=== PATIENT | male | born 1950 | race Caucasian/White ===

== ENCOUNTER → 2017-03-20 | Outpatient (CLI) | payer SELFPAY ==
[~2017-03-20] MED LIST: ALBIPROI INH; ALBU3IS INH; ALBU90OI INH; ALBU90OI61; AMOCLA500 PO; AMOCLA875 PO; ASPI325 PO; ASPI81CH PO; ATEN50 PO; Amoxicillin500 MG PO; Augmentin 875-1 EACH PO; BECL80OI INH; BUDE.5; BUDE6HFA; BUME2 PO; Brovana15 MCG/2 M; CALC.25 PO; CEPH500 PO; CPAP; Cephalexin500 MG PO; Coreg12.5 MG PO; DOCU100 PO; DOK100 MG PO; DULO30 PO; FAMO20 PO; FLUSAL2505 IH; FLUT.05NI; FURO100EL PO; FURO20; GAVILAX17 GM PO; HYDACE10B PO; HYDACE5 PO; HYDCHL12.5 PO; HYDCHL25 PO; IBUP200 PO; IPRAIS; LEVO750 PO; LISHYD2012 PO; LISI20 PO; MELA3 PO; METH10 PO; METO50ER PO; MINO100 PO; MORP30ER PO; MORP60ER PO; MUPI2TO TOP; NAPR500 PO; NYST100P TOP; NYST100TO TOP; Nitrostat0.4 MG SL; Norco 10-325 T1 EACH PO; Nyamyc15 GM TOP; OXAZEPAM 30 MG; OXYACE5T PO; OXYC5 PO; OXYGEN; Oxycontin20 MG PO; PANT40 PO; POTA10T PO; POTA8 PO; POTCHL10ER PO; POTCHL20ER PO; PRED5 PO; PREG75 PO; SALS750 PO; SERT50 PO; SULTRIDS PO; SULTRISS PO; THERAPEUTIC-M1 EAC1 PO; TIOT18; TIOT18 INH; TRAZ50 PO; TUDORZA PRESS400 MCG; UNKNOWN BP MED PO; WARF3 PO; WARF4 PO; WARF5 PO; XARELTO20 MG PO; Zofran8 MG PO; [UNRECOGNIZED DRUG - OTHER] PO; [UNRECOGNIZED DRUG - OTHER] TOP
== END | disposition home or self-care (01) ==
LOC: LAB 14:45
DX: L08.9 Local infection of the skin and subcutaneous tissue, unspecified (principal)
CPT/HCPCS: 87070; 87077; 87186; 87205

== ENCOUNTER 2017-11-03 09:08 | Emergency (ER) | payer MEDICARE, OTHER ==
[~2017-11-03] VITALS: Ht 170.2 cm; Wt 181.4 kg
[~2017-11-03 09:08] MED LIST changes: -Augmentin 875-1 EACH PO; -CALC.25 PO; -MELA3 PO; -Nyamyc15 GM TOP; -THERAPEUTIC-M1 EAC1 PO
[2017-11-03] MEDS ORDERED: Augmentin 875-1 EACH PO (09:22)
[2017-11-03] MEDS ORDERED: CALC.25 PO (09:23)
[2017-11-03] MEDS ORDERED: BUME2 PO (09:23)
[2017-11-03] MEDS ORDERED: Norco 10-325 T1 EACH PO (09:25)
[2017-11-03] MEDS ORDERED: MELA3 PO (09:26)
[2017-11-03] MEDS ORDERED: THERAPEUTIC-M1 EAC1 PO (09:27)
[2017-11-03 09:55] LABS: BASOPHILS ABSOLUTE AUTO 0.03 K/mm3 (0.00-0.23); BASOPHILS PERCENT AUTO 0 % (0-2); EOSINOPHILS ABSOLUTE AUTO 0.33 K/mm3 (0.00-0.68); EOSINOPHILS PERCENT AUTO 3 % (0-6); Hematocrit 32.1 % (37.0-53.0); IMMATURE GRAN ABSOLUTE AUTO 0.04 K/mm3 (0.00-0.10); IMMATURE GRAN PERCENT AUTO 0 % (0-1); LYMPHOCYTES PERCENT AUTO 8 % (21-46); MONOCYTES ABSOLUTE AUTO 1.07 K/mm3 (0.16-1.47); MONOCYTES PERCENT AUTO 9 % (4-13); Mean Corpuscular HGB 28.9 pg (26.0-34.0); Mean Corpuscular HGB Conc 31.2 g/dL (31.5-36.5); Mean Corpuscular Volume 93 fL (80-100); Mean Platelet Volume 9.1 fL (9.1-12.4); NEUTROPHILS ABSOLUTE AUTO 9.55 K/mm3 (1.96-9.15); NEUTROPHILS PERCENT AUTO 80 % (41-73); Platelet Count 220 K/mm3 (150-400); RDW Coefficient Variation 14.1 % (11.7-14.2); RDW Standard Deviation 48.2 fL (35.1-46.3); Red Blood Cell Count 3.46 M/mm3 (4.30-5.90); White Blood Cell Count 11.92 K/mm3 (4.00-11.30)
[2017-11-03 10:12] LABS: Alanine Aminotransfer (ALT/SGP 14 U/L (12-78); Albumin, Blood 2.5 g/dL (3.4-5.0); Albumin/Globulin Ratio 0.5 (0.8-1.8); Alk Phos 85 U/L (50-136); Anion Gap 2 mmol/L (6-16); Aspartate Aminotrans (AST/SGOT 18 U/L (12-37); Bilirubin, Total 0.5 mg/dL (0.1-1.0); Blood Urea Nitrogen 19 mg/dL (8-24); Bun/Creatinine Ratio 31.2 (12.0-20.0); CO2, Blood 39 mmol/L (21-32); Calcium, Blood 8.1 mg/dL (8.5-10.1); Chloride, Blood 95 mmol/L (98-108); Creatinine, Blood 0.61 mg/dL (0.60-1.20); Globulin, Blood 4.6 g/dL (2.2-4.0); Glomerular Filtration Rate >60 (60-); Glucose, Blood 128 mg/dL (70-99); Potassium, Blood 4.2 mmol/L (3.5-5.5); Sodium, Blood 136 mmol/L (136-145); Total Protein, Blood 7.1 g/dL (6.4-8.2); Troponin I <0.015 ng/mL (0.000-0.040)
[2017-11-03 10:35] LABS: Base Excess Venous 17.3 mmol/L; Bicarbonate Venous 38.8 mmol/L (24.0-30.0); PCO2 Venous 67.3 mmHg (38-42); PO2 Venous 173 mmHg (38-42)
== END 2017-11-03 13:30 | disposition home or self-care (01) ==
LOC: ER 09:08
PROVIDERS: Emergency Medicine; Internal Medicine
DX: I11.0 Hypertensive heart disease with heart failure (principal); I50.32 Chronic diastolic (congestive) heart failure; J44.9 Chronic obstructive pulmonary disease, unspecified; G93.40 Encephalopathy, unspecified; K21.9 Gastro-esophageal reflux disease without esophagitis; Z87.891 Personal history of nicotine dependence; Z79.899 Other long term (current) drug therapy
CPT/HCPCS: 36415; 70450; 71046; 80053; 82803; 83880; 84484; 85025; 93005; 93010; 94644; 99285-25

== ENCOUNTER 2017-11-07 18:52 | Emergency (ER) | payer MEDICARE, OTHER ==
[~2017-11-07] VITALS: Ht 170.2 cm; Wt 204.1 kg
[~2017-11-07 18:52] MED LIST changes: +Augmentin 875-1 EACH PO; +CALC.25 PO; +MELA3 PO; +THERAPEUTIC-M1 EAC1 PO
[2017-11-07] MEDS ORDERED: Nyamyc15 GM TOP (19:21)
== END 2017-11-07 20:35 | disposition home or self-care (01) ==
LOC: ER 18:52
DX: R41.82 Altered mental status, unspecified (principal); L97.529 Non-pressure chronic ulcer of other part of left foot with unspecified severity; I11.0 Hypertensive heart disease with heart failure; I50.32 Chronic diastolic (congestive) heart failure; J44.9 Chronic obstructive pulmonary disease, unspecified; K21.9 Gastro-esophageal reflux disease without esophagitis; Z79.899 Other long term (current) drug therapy; Z87.891 Personal history of nicotine dependence
CPT/HCPCS: 82947; 93005; 93010; 99285-25

== ENCOUNTER 2018-03-05 11:18 | Observation (INO) | payer MEDICARE, OTHER ==
[~2018-03-05] VITALS: Ht 170.2 cm; Wt 200.5 kg
[~2018-03-05 11:18] MED LIST changes: +Nyamyc15 GM TOP
[2018-03-05 13:08] LABS: Influenza A Negative (NEGATIVE); Influenza B Negative (NEGATIVE)
[2018-03-05 13:10] LABS: BASOPHILS ABSOLUTE AUTO 0.04 K/mm3 (0.00-0.23); BASOPHILS PERCENT AUTO 0 % (0-2); EOSINOPHILS ABSOLUTE AUTO 0.46 K/mm3 (0.00-0.68); EOSINOPHILS PERCENT AUTO 5 % (0-6); Hematocrit 36.2 % (37.0-53.0); Hemoglobin 10.7 g/dL (13.5-17.5); IMMATURE GRAN ABSOLUTE AUTO 0.04 K/mm3 (0.00-0.10); IMMATURE GRAN PERCENT AUTO 0 % (0-1); LYMPHOCYTES ABSOLUTE AUTO 0.99 K/mm3 (0.84-5.20); LYMPHOCYTES PERCENT AUTO 11 % (21-46); MONOCYTES ABSOLUTE AUTO 0.79 K/mm3 (0.16-1.47); MONOCYTES PERCENT AUTO 9 % (4-13); Mean Corpuscular HGB 28.5 pg (26.0-34.0); Mean Corpuscular HGB Conc 29.6 g/dL (31.5-36.5); Mean Corpuscular Volume 96 fL (80-100); Mean Platelet Volume 9.1 fL (9.1-12.4); NEUTROPHILS ABSOLUTE AUTO 6.89 K/mm3 (1.96-9.15); NEUTROPHILS PERCENT AUTO 75 % (41-73); Platelet Count 238 K/mm3 (150-400); RDW Standard Deviation 53.2 fL (35.1-46.3); Red Blood Cell Count 3.76 M/mm3 (4.30-5.90); White Blood Cell Count 9.21 K/mm3 (4.00-11.30)
[2018-03-05 13:20] LABS: Alanine Aminotransfer (ALT/SGP 15 U/L (12-78); Albumin, Blood 2.8 g/dL (3.4-5.0); Albumin/Globulin Ratio 0.6 (0.8-1.8); Alk Phos 79 U/L (50-136); Anion Gap 3 mmol/L (6-16); Aspartate Aminotrans (AST/SGOT 14 U/L (12-37); Bilirubin, Total 0.1 mg/dL (0.1-1.0); Blood Urea Nitrogen 15 mg/dL (8-24); Bun/Creatinine Ratio 23.3 (12.0-20.0); CO2, Blood 36 mmol/L (21-32); Calcium, Blood 8.6 mg/dL (8.5-10.1); Chloride, Blood 104 mmol/L (98-108); Creatinine, Blood 0.64 mg/dL (0.60-1.20); Globulin, Blood 4.5 g/dL (2.2-4.0); Glomerular Filtration Rate >60 (60-); Glucose, Blood 92 mg/dL (70-99); Potassium, Blood 4.6 mmol/L (3.5-5.5); Sodium, Blood 143 mmol/L (136-145); Total Protein, Blood 7.3 g/dL (6.4-8.2)
[2018-03-05 15:30] LABS: Source, Urine Clean Catch
[2018-03-05 15:34] LABS: Bilirubin, Urine Neg (Neg); Blood, Urine 5+ (Neg); Glucose Qualitative, Urine Neg (Neg); Ketones, Urine Neg (Neg); Leukocyte Esterase, Urine 1+ (Neg); Nitrite, Urine Neg (Neg); Protein, Urine 2+ (Neg); Urobilinogen, Urine NORM (Normal)
[2018-03-05 15:41] LABS: Appearance, Urine Clear (Clear); Color, Urine Yellow (P-Yellow)
[2018-03-05 15:43] LABS: Red Blood Cells, Urine 25-50 /hpf (0-2); Uric Acid Crystals Many /hpf
[2018-03-05 15:45] LABS: Calcium Oxalate Crystals Mod /hpf
[2018-03-05 15:46] LABS: Squamous Epithelial Cells Few /hpf (Few)
[2018-03-05 15:47] LABS: Bacteria Few /hpf
--- NOTE | 2018-03-05 16:45 | NUR ---
PT ARRIVED TO ROOM 364 FROM ED. TRANSFERRED TO BED FROM [facility] VIA ROOM LIFT. SOB WITH ANY REPOSITIONING OR EXERTION. PHOTOS TAKEN OF LEGS AND GLUTEAL FOLDS. SETTLED IN TO BED THEN AND PILLOW CASES PLACED IN FOLDS.
--- NOTE | 2018-03-05 19:55 | NUR ---
SHIFT SUMMARY PT CALLING FOR ASSIST SEVERAL TIMES SINCE ARRIVAL. CONDOM CATH ATTEMPTED BUT FELL OFF. SITTING UP IN BED WATCHING TV.
--- NOTE | 2018-03-06 05:02 | NUR ---
VSS, AFEBRILE, A/O, MORBIDLY OBESE, USE LIFT TO TURN *IF* HE WILL PERMIT YOU TO DO IT, PT REFUSES CARE FREQUENTLY, PMHX: MRSA, ESBL IN URINE, CHRONIC LYMPHEDEMA BILAT LE, COPD, RASH IN GROIN, CHRONIC PAIN. PT USES TWO CANES TO MOBILIZE OUT OF BED, NO IV ACCESS - OK, C/O SOB WHEN HOB IS LOWERED, REFUSING CARE, REFUSING TO TURN UNLESS HE WANTS TO BE SCRACHED ON THE BACK, REFUSING MEDS AT TIMES. OPEN AREAS ON BOTH LEGS, COCCYX AND SMALL OF BACK, PHOTOS TAKEN. INCONT, CONDOM CATH IS NOT A VIABLE SOLUTION BECAUSE PT MANIPULATES HIS GENITALS AT TIMES, WOUNDS ON LEGS ARE WEEPING, 3L NC, CAN MAKE INAPPROPRIATE COMMENTS TO STAFF AT TIMES, LIVES ALONE, NEEDS HANDY WORKER
--- NOTE | 2018-03-06 19:00 | NUR ---
SHIFT SUMMARY PT UP WITH P.T. THIS MORNING, STOOD AND SAT IN CHAIR WHILE I WAS IN ROOM. GRUNTS AND "CHANTS" FREQUENTLY. REPORTS CHANTING HELPS HIM GET HIS MIND OFF OF SITUATION AT THE TIME. USING URINAL WITH ASSIST TO VOID. LEGS WEEPS CONTINUOUSLY. REPORTS SOB WITH AND WITHOUT EXERTION.
--- NOTE | 2018-03-07 04:58 | NUR ---
VSS, AFEBRILE, A/O, STEADY AMBULATION WITH BOTH CANES, INCONT BUT ASKS FOR THE URINAL, PMHX: CHRONIC LYMPHEDEMA BILAT LE, CHRONIC PAIN, RASH IN GROIN FOLDS, COPD. NO IV - MD OK, REFUSES MEDS AT TIMES, OFTEN MAKES INAPPROPRIATE REMARKS TO STAFF OR TO PEOPLE PASSING HIS ROOM, BILAT LE WEEPING, WOUNDS ON LEGS, COCCYX, AND LOWER BACK, PHOTOS IN CHART, 3L NC, C/O JONAS WHEN ASKED TO SIT UP ON THE EDGE OF THE BED OR TO TURN OVER IN BED. USE LIFT, LIVES ALONE, HE WANTS PLACEMENT IN A SENIOR CARE TO CARE FOR HIM.
--- NOTE | 2018-03-07 18:35 | NUR ---
PATIENT HAS HAD NO CHANGES TODAY. HE WORKED WITH AND WAS CLEARED BY PT . HE IS ABLE TO AMBULATE WITH HIS TWO CANES BUT SPENT MOST OF THE DAY IN BED OR IN HIS CHAIR. HE HAD ISSUES AT THE START OF THE SHIFT WITH BEING INAPPROPRIATE WITH THE STAFF BUT THE NURSE WAS ABLE TO TALK TO HIM AND LET HIM KNOW WHAT WOULD BE TOLERATED AND EXPECTED OF HIM BEHAVIORAL CONTI. HE SLEPT MOST OF THE AFTERNOON IN CHAIR WITH LEGS UP AND HAD TO BE AWAKEN TO BE GIVEN HIS EVENING MEDS. PATIENT WOKE UP CONFUSED BUT DID KNOW WHERE HE WAS/
--- NOTE | 2018-03-08 05:06 | NUR ---
VSS, AFEBRILE, A/O, OOB W/2 CANES, SLEEPS IN CHAIR, USES URINAL W/ASSISTANCE, NO IV - MD OK, BEHAVIOR IS IMPROVING, MORE RESPECTFUL OF STAFF, FEWER INAPPROPRIATE REMARKS OVER NOC. BILAT LE LYMPHEDEMA, SEVERAL OPEN AREAS ON LEGS, COCCYX AND LOWER BACK, PHOTOS IN CHART, PT STATES THAT HE IS VERY STEADY ON HIS FEET WITH HIS CANES AND CAN/SHOULD AMBULATE TO REGAIN HIS STRENGTH. PT LIVES ALONE AND WANTS PLACEMENT IN A SENIOR CARE SO THAT OTHERS WILL TAKE CARE OF HIM. NEEDS BUSINESS ANALYSIS PROFESSIONAL.
--- NOTE | 2018-03-08 18:19 | NUR ---
PATIENT HAS HAD NO CHANGES TO HIS CONDITION OR MUCH TO HIS BEHAVIOR. HE WAS FOUND ON THE FLOOR DURING THE LUNCH HOUR AND STATED HE HAD SLID OUT OF BED HE WAS TRYING TO GET INTO CHAIR OR TO GET HIS TRAY WHICH WAS RIGHT IN FRONT OF HIM. THIS NURSE IS NOT QUITE SURE WHICH ONE THE PATIENT KEPT CHANGING HIS STORY AND HIS MIND TO WHAT HAPPENED. NO INJURIES NOTED OR REPORTE. WITH MUCH EFFORT HE WAS LIFTED BACK INTO BED BY THE HOVER FLORA. HE WAS CLEANED UP AND HAD HIS BED CHANGED . PREVIOUSLY THIS MORNING PATIENT HAD USED HIS CANES TO ASSIST HIMSELF FROM THE CHAIR TO THE SIDE OF THE BED SO IT IS UNKNOWN WHY EXACTLY HE WAS UNABLE TO GET FROM THE BED TO THE CHAIR OR WHY HE WAS REACHING FOR A TABLE WHICH HAD BEEN INFRONT OF HIM AND HOW EXACTY HE ENDED UP ON THE FLOOR BY HIS BED. PATIENT WAS NOT THE BEST HISTORIAN. HE HAS SLEPT MOST OF THE AFTERNOON WITH NO COMPLAINTS. CALL LIGHT WITHIN REACH.
--- NOTE | 2018-03-09 06:16 | NUR ---
SHIFT SUMMARY NO C/O PAIN EXCEPT WHEN TURNING HIM. INCONT OF URINE. CALLS OUT SAME WORDS REPEATEDLY "I WANNA GO" "OH BABY". 6L O2 NC. NONAMBULATORY LIFT PT. BED ALARM IN USE. EXCORIATIONS ON SIDE OF CALVES WEEPING AND CHANGED CHUX UNDERNEATH PRN. HE WAS ABLE TO SLEEP T/O NIGHT ON AND OFF. CALL LIGHT IN REACH
--- NOTE | 2018-03-09 08:15 | NUR ---
PT SLEEPING SOUNDLY WHEN RT IN ROOM. WHEN ASKED QUESTIONS BY THIS RN PT WOULD RESPOND I DONT KNOW OR WOULD ANSWER THE PREVIOUS QUESTION AGAIN. GRUNTING AND MOANING IN ROOM SINCE AWAKENED. APPEARS MENTALLY ALTERED SINCE LAST CARING FOR PT. HAND JERKING ABOUT. O2 DECREASED TO 4L/M BY RT. VSS. CALL OUT TO DR. GHOTRA.
--- NOTE | 2018-03-09 10:33 | NUR ---
PT MUCH IMPROVED FROM EARLIER. MD IN TO SEE PT AFTER SPEAKING WITH HIM ON PHONE. AWAKE AND ALERT. ABLE TO CARRY ON A CONVERSATION. ARM JERKING IMPROVING FROM EARLIER. ABLE TO FEED SELF. P.T. IN TO SEE PT AND NOW IN CHAIR.
--- NOTE | 2018-03-09 18:30 | NUR ---
PT HAS BEEN AWAKE MOST OF DAY WITH SHORT NAP THIS AFTERNOON PRIOR TO GETTING IN CHAIR FOR SUPPER. HAD SIMILAR SYMPTOMS THIS MORNING BUT TO A LESSER DEGREE. ABLE TO TRANSFER TO RECLINER WITH 1 PERSON ASSIST USING CANES. MOANING AND GRUNTING FREQUENTLY WHEN MOVING AROUND OR SITTING IN CHAIR. SOB WITH EXERTION. LE'S WEEPING CONSTANTLY WHICH IS BASELINE FOR PT. SPOKE WITH MD THIS MORNING ABOUT MOST RECENT UA SHOWING ESBL. NO NEW ORDERS AT THIS TIME.
--- NOTE | 2018-03-10 05:14 | NUR ---
VSS, AFEBRILE, A/O, OOB TO THE CHAIR WITH 1 PA AND 2 CANES, MORBIDLY OBESE, REFUSING CPAP AT NOC, GRUNTING LOUDLY - EVEN MORE LOUDLY IF HIS DOOR IS CLOSED. IT IS UNCLEAR WHY HE MAKES THOSE NOISES THEY APPEAR TO NOT BE SYMPTAMTIC OF ANYTHING. PT IS REPORTED TO BE S/P FALL ON XMAS DAY. PT IS VOCALLY PROTESTING WHAT HE BELIEVES TO BE HIS PENDING DISCHARGE TO A REHAB FACILITY. PT AWAKE ALMOST ALL NOC THIS SHIFT AND HIS LOUD NOISES ARE DISRUPTIVE TO OTHER PATIENTS. NO IV - MD OK. PMHX: OBESITY, BILAT LE LYMPHEDEMA, CHRONIC BACK PAIN
--- NOTE | 2018-03-10 07:45 | NUR ---
A.M. NOTE PT IN ROOM SITTING ON SIDE OF BED. WHEN ASKED HOW HE GOT THERE HE REPORTED HE GOT HIMSELF FROM CHAIR TO BED. CANES HAD BEEN OUT OF REACH WHEN HE TRANSFERED. APPEARS TO REQUIRE 2-3 STEPS TO GET TO BED FROM CHAIR. MAKING FREQUENT NOISES IN ROOM WHEN ALONE. WHEN ASKED IF HE NEEDS ANYTHING HE SAYS I DON'T KNOW OR LET ME THINK A MINUTE.
--- NOTE | 2018-03-10 14:10 | NUR ---
PT HAS BEEN IN CHAIR FOR LUNCH. WHEN ASKED ORIENTATION QUESTIONS PT RESPONDS APPROPRIATELY. HAS BEEN TO BATHROOM AND BACK TWICE BEFORE LUNCHTIME USING CANES AND SBA. FOUND AFTER FIRST TIME GOING IN TO BATHROOM BACK IN CHAIR PRIOR TO RETURNING TO ROOM. NOW HAS CHAIR ALARM IN PLACE. HAS ATTEMPTED TO GET OUT OF CHAIR "JUST TO STAND" A FEW TIMES WITH ALARM SOUNDING AND PT SWEARING AT THE NOISE. ASSISTED BACK TO BED. ABLE TO DO MOST OF TRANSFER ON HIS OWN WITH CUING TO STRAIGHTEN SHOULDERS AND ASSIST WITH 1 FOOT. HE IS ABLE TO PULL SELF UP WITH BED IN TRENDELENBERG POSTION. WHEN TOLD TO STOP YELLING OUT SO FREQUENTLY ESPECIALLY WHEN HE HAS NOTHING HE NEEDS AT THE TIME HE QUIETS DOWN BUT DOES SLOWLY INCREASE IN VOLUME AGAIN.
[2018-03-10 17:36] LABS: BASOPHILS ABSOLUTE AUTO 0.04 K/mm3 (0.00-0.23); BASOPHILS PERCENT AUTO 0 % (0-2); EOSINOPHILS ABSOLUTE AUTO 0.25 K/mm3 (0.00-0.68); EOSINOPHILS PERCENT AUTO 2 % (0-6); Hematocrit 35.5 % (37.0-53.0); Hemoglobin 10.9 g/dL (13.5-17.5); IMMATURE GRAN ABSOLUTE AUTO 0.05 K/mm3 (0.00-0.10); IMMATURE GRAN PERCENT AUTO 1 % (0-1); LYMPHOCYTES ABSOLUTE AUTO 1.21 K/mm3 (0.84-5.20); LYMPHOCYTES PERCENT AUTO 11 % (21-46); MONOCYTES ABSOLUTE AUTO 1.18 K/mm3 (0.16-1.47); MONOCYTES PERCENT AUTO 11 % (4-13); Mean Corpuscular HGB 28.9 pg (26.0-34.0); Mean Corpuscular HGB Conc 30.7 g/dL (31.5-36.5); Mean Corpuscular Volume 94 fL (80-100); Mean Platelet Volume 9.5 fL (9.1-12.4); NEUTROPHILS ABSOLUTE AUTO 8.17 K/mm3 (1.96-9.15); NEUTROPHILS PERCENT AUTO 75 % (41-73); Platelet Count 257 K/mm3 (150-400); RDW Coefficient Variation 14.6 % (11.7-14.2); RDW Standard Deviation 50.5 fL (35.1-46.3); Red Blood Cell Count 3.77 M/mm3 (4.30-5.90)
[2018-03-10 18:08] LABS: Alanine Aminotransfer (ALT/SGP 17 U/L (12-78); Albumin, Blood 2.8 g/dL (3.4-5.0); Albumin/Globulin Ratio 0.6 (0.8-1.8); Alk Phos 72 U/L (50-136); Anion Gap 5 mmol/L (6-16); Aspartate Aminotrans (AST/SGOT 23 U/L (12-37); Bilirubin, Total 0.3 mg/dL (0.1-1.0); Blood Urea Nitrogen 18 mg/dL (8-24); Bun/Creatinine Ratio 22.3 (12.0-20.0); CO2, Blood 35 mmol/L (21-32); Calcium, Blood 8.6 mg/dL (8.5-10.1); Chloride, Blood 99 mmol/L (98-108); Creatinine, Blood 0.81 mg/dL (0.60-1.20); Globulin, Blood 4.6 g/dL (2.2-4.0); Glomerular Filtration Rate >60 (60-); Glucose, Blood 86 mg/dL (70-99); Sodium, Blood 139 mmol/L (136-145); Total Protein, Blood 7.4 g/dL (6.4-8.2)
--- NOTE | 2018-03-10 18:37 | NUR ---
SHIFT SUMMARY PT HAS REMAINED ON BED ALARM SINCE BEING PUT BACK IN BED. HAS MADE NO ATTEMPT TO CLIMB OUT OF BED. AFTER BEING INSTRUCTED NOT TO BE LOUD WITH HIS NOISES BECAUSE THEY WERE DISTURBING OTHER PTS AND FAMILY MEMBERS AND HE HAS BEEN MORE QUIET SINCE. MD IN TO SEE PT AND ORDERED STAT TESTS. NEEDED CONVINCING TO DO CT AND REFUSED ABG. STATED HES HAD ONE IN THE PAST AND HE WILL NEVER HAVE ONE AGAIN. SAYS HE DOESN'T WANT ANYTHING FOUND THAT WOULD KEEP HIM HERE ANY LONGER AND THAT HE WAS GOING HOME TONIGHT. EXPLAINED THAT [facility]OCK CRUSHER DISCUSSED WITH HIM GOING BACK HOME WITH [employer] TOMORROW. REPLIED THIS PLACE SUCKS AND I WANT TO GO HOME. WAS CALM FOR A LONG PERIOD OF TIME AND THEN WANTED TO KNOW IF HE WAS GOING HOME TODAY AGAIN AND NEEDED REMINDING NO TONIGHT. ABLE TO ANSWER QUESTIONS APPROPRIATELY BUT THEN IS FORGETING WHAT IS BEING SAID TO HIM. SUCKS
--- NOTE | 2018-03-11 02:58 | NUR ---
FOUR RECTANGULAR WHITE PILLS FOUND ON PT BEDSIDE TABLE IN A ZIPLOCK BAG THIS AM. UNSURE OF WHAT THEY WERE. NOTIFIED CLINICAL COODINATOR SIMONE PEÑA RN, AND PINKING SEWING MACHINE OPERATOR AMAN MINA RN. INSTRUCTED TO TAKE TO PHARMACY. BAG TAKEN TO PHARMACY AND GIVEN TO BING CONROY. HE STATES THAT THEY APPEAR TO BE [facility]. BING CONROY LOOKED THEM UP AND IDENTIFIED THEM [facility]. TO BE CALLED AND NOTIFIED.
--- NOTE | 2018-03-11 03:18 | NUR ---
DR. NGUYEN NOTIFIED THAT MEDICATION WAS FOUND ON PT TABLE AND IT WAS IDENTIFIED [facility] BY PHARMACY. NOTIFIED OF THE AMOUNT FOUND ON THE TABLE. AND OF PT INCREASED CONFUSION OVER THE PAST FEW DAYS. NO NEW ORDERS. HE STATES TO NOTIFY DAYSHIFT RN FOR FOLLOW UP WITH ATTNENDING PHYSICAN. WILL NOTIFY.
--- NOTE | 2018-03-11 05:05 | NUR ---
SHIFT SUMMARY PT CONTINUES TO YELL AND MOAN OUT ON AND OFF T/O THE NIGHT. "COME ON BABY', "I WANNA GO". PT VERY FORGETFUL. AT THE BEGINNING OF THE SHIFT PT ANSWERS MY QUESTONS ABOUT THE MONTH, AND YEAR. BUT UNABLE TO TELL ME WHERE HE IS, AND ANSWERS NONSENSICALLY IF HE DOES NOT KNOW THE ANSWER TO MY QUESTION. PT HAD TWO LARGE INCONTINENT VOIDS IN THE BED THIS SHIFT WHICH REQUIRED TWO COMPLETE LINEN CHANGES. PT DOES NOT CALL WHEN HE NEEDS TO GO TO THE BATHROOM. THE ONLY THING THAT SIGNALS THAT HE HAS WET THE BED IS WHEN PT ATTEMPTS TO TRY AND GET OUT OF BED STATING "I WANNA GO". MEDICATIONS FOUND ON PT BEDSIDE TABLE IN A ZIPLOCK BAG THIS SHIFT. MEDICATION TAKEN TO PHARMACY, WHICH WAS LATER IDENTIFIED [facility]. PT NOT ORINETED ENOUGH TO PROVIDE DETAILS ON THE MEDCAITION FOUND. MEDICATIONS WERE TAKEN TO PHARMACY, AND NOTIFIED. THERE ARE NO ACUTE S/S OF DISTRESS IN PT. SEE EARLIER NURSES NOTES. NO OTHER CHANGES TO REPORT. VITALS ARE STABLE. PSYCH CONSULT IN PLACE WITH DR. KLINE FACE SHEET FAXED TO PHARMACY. WILL CONTINUE TO MONITOR AND REPORT TO ONCOMING RN.
--- NOTE | 2018-03-11 18:38 | NUR ---
PT UP TO CHAIR THIS MORNING USING LIFT. THERAPIES IN TO SEE PT WHILE HE WAS UP IN CHAIR. HE DID NOT PARTICIPATE WITH THERAPIES THIS AM. PT RETURNED TO BED BEFORE LUNCH USING LIFT PER HIS REQUEST. PT CALLING FOR ASSISTANCE FREQUENTLY, SOMETIMES USING THE CALL ROBERTS AND SOMETIMES JUST YELLING, ALSO TALKING TO HIMSELF MOST OF THE TIME. PT UP AND STANDING USING HIS TWO CANES AND INTO CHAIR. UP IN CHAIR THRU DINNER AND IS NOW RETURNING TO BED WITH CONSTRUCTION TRADES CONTRACTOR ASSISTANCE. WILL CONTINUE TO MONITOR AND REPORT TO AISHWARYA DENNY
--- NOTE | 2018-03-11 23:39 | NUR ---
PATIENT UPDATE PATIENT CURRENTLY SITTING AT EDGE OF BED. REFUSING OFFERS FROM OIL RECOVERY OPERATOR TO ASSIST HIM TO CHANGE POSITIONS. HAS POSITIONED HIMSELF ONTO EDGE OF BED WHERE BED ALARM CAN'T BE PLACED IT ALARMS SOON IT IS ENGAGED. REFUSING TO LAY BACK DOWN OR MOVE INTO CHAIR. OIL RECOVERY OPERATOR CURRENTLY WITH HIM IN ROOM TO ENSURE HE DOESN'T FALL. WILL CONTINUE TO MONITOR AND ATTEMPT TO HAVE PATIENT CHANGE POSITIONS TO BEING SAFER.
--- NOTE | 2018-03-12 00:09 | NUR ---
UPDATE PATIENT ABLE TO BE CONVINCED BY SERVICE STATION ATTENDANT TO SIT IN CHAIR INSTEAD OF EDGE OF BED. WILL CONTINUE TO MONITOR.
--- NOTE | 2018-03-12 05:34 | NUR ---
SHIFT SUMMARY PATIENT SLEPT SPORADICALLY THROUGH THE NIGHT. CONTINUOUSLY WOULD MOAN AND YELL OUT FOR ATTENTION INSTEAD OF USING CALL LIGHT REGARDLESS OF ORIENTATION TO IT. WOULD ALSO ASK FOR HIS "BABIES" TO COME HELP HIM. DAY SHIFT HAD INFORMED PATIENT THAT NO STAFF RESPONDS TO THAT BUT HE TRIES WITH EACH NEW SET OF STAFF. PATIENT RATES PAIN AT A CONTINUAL LEVEL OF 8 REGARDLESS OF MEDICATIONS GIVEN. WILL CONTINUE TO MONITOR AND ASSESS UNTIL SHIFT HANDOFF.
--- NOTE | 2018-03-12 18:14 | NUR ---
PT HAS BEEN AOX4 WITH SOME CONFUSION. PT HAS GOTTEN UP TO SIDE OF BED ON HIS OWN X2 TODAY AND WAS VERY HARD TO GET TO COOPERATE.PT AT END OF SHIFT HAD WET HIS BED PT WILL NOT LET HIS BED BE CHANGED AND HAS REFUSED. CHARGE NURSE NOTIFIED. PT COOPERATIVE WITH MEDICATIONS. PAIN TREATED PER EMAR.
--- NOTE | 2018-03-12 22:32 | NUR ---
STATUS UPDATE UPON SHIFT CHANGE WAS REPORTED THAT PATIENT REFUSED TO ALLOW DAY SHIFT TO CHANGE LINENS AND HAD SOILED THEM. STATED THAT WE WOULD HAVE TO FORCE HIM OUT OF BED TO CHANGE THEM. DISCUSSED WITH PATIENT AND GAVE HIM NO ULTIMATUMS OR BARGAINING REGARDING LINEN CHANGE AND MICAELA CARE. PATIENT RELUCTANT BUT DID AMBULATE TO BATHROOM WITH SUPPORT FROM HOME DEMONSTRATION AGENT AND RN. PATIENT LATER REFUSED TO LAY DOWN UNLESS RN WAS IN ROOM ASSISTING ALSO. PATIENT CONTINUES TO MOAN AND YELL OUT FREQUENTLY AND IT HAS NO BEARING RELATED TO HIS MEDICATIONS HE YELLS OUT BEFORE AND AFTER RECEIVING THEM AND IT IS CONSTANT. WILL CONTINUE TO MONITOR.
[2018-03-13 05:44] LABS: Anion Gap 3 mmol/L (6-16); Blood Urea Nitrogen 14 mg/dL (8-24); Bun/Creatinine Ratio 19.9 (12.0-20.0); CO2, Blood 38 mmol/L (21-32); Calcium, Blood 8.5 mg/dL (8.5-10.1); Chloride, Blood 99 mmol/L (98-108); Creatinine, Blood 0.71 mg/dL (0.60-1.20); Glomerular Filtration Rate >60 (60-); Glucose, Blood 92 mg/dL (70-99); Potassium, Blood 4.3 mmol/L (3.5-5.5); Sodium, Blood 140 mmol/L (136-145)
--- NOTE | 2018-03-13 06:42 | NUR ---
SHIFT SUMMARY PATIENT SLEPT THROUGH THE NIGHT. HAD MINIMAL GROANING AND MOANING TONIGHT OPPOSED TO YESTERDAY. GAVE PATIENT ALL PAIN MEDICATIONS AT THE SAME TIME AND HE TOLERATED WELL. WILL CONTINUE TO MONITOR UNTIL SHIFT HANDOFF.
--- NOTE | 2018-03-13 17:15 | NUR ---
PT AO SEEMS MORE COOPERATIVE TODAY. PT CONTINUES TO REFUSE HIS BUMEX. PT HAS BEEN CALLING APPROPRIATELY TODAY AND HIS CALLING OUT AND MOAN HAS NOT BEEN EXCESSIVE IT WAS YESTERDAY. WILL MONITOR CLOSELY.
--- NOTE | 2018-03-13 22:21 | NUR ---
PT IS STABLE, BUT C/O JONAS. PT WANTS TO BE PULLED UP IN BED BY STAFF. PT DOES NOT CURRENTLY HAVE THE LIFT SLING UNDER HIM, SO THE OVERHEAD LIFT CANNOT BE USED. PT REFUSES TO ROLL OVER TO PERMIT PLACEMENT OF THE LIFT SLING. PT REFUSES TO GET OOB WITH HIS CANES TO BETTER POSITION HIMSELF. PT IS ANGRY AND MAKING UNKIND REMARKS TO STAFF BECAUSE HE WANTS TO BE PULLED UP IN BED MANUALLY. RT WAS CONTACTED TO GIVE HIM A BREATHING TX. WILL CONTINUE TO MONIOR.
--- NOTE | 2018-03-13 23:28 | NUR ---
PT HAS FINALLY AGREED TO STAND UP TO BE REPOSITIONED. PT WAS PLACED IN THE CHAIR WHILE HIS BED LINEN WAS CHANGED. AN EGG CRATE MATTRESS HAS BEEN PLACED ON HIS BED, AND THE LIFT SLING HAS BEEN POSITIONED SO THAT IT CAN BE USED THE NEXT TIME THAT HE WANTS TO BE MOVED UP IN BED. THE PT'S BODY SMELLS BADLY, BUT HE IS REFUSING A BATH AT THIS TIME. HE WAS RETURNED TO THE BED AFTER HIS LINEN WAS CHANGED AND HE HAS THE URINAL BETWEEN HIS LEGS, PER HIS REQUEST. WILL CONTIUE TO MONITOR.
--- NOTE | 2018-03-14 01:39 | NUR ---
PT OOB TO STAND WHILE HIS BOTTOM WAS CLEANED. PT WAS OFFERED A SHOWER, BUT HE DECLINED AGAIN. PT BECOMES ANXIOUS WHEN OOB BUT IS QUITE STEADY ON HIS FEET W/2 CANES. PT RETURNED TO HIS BED W/OUT INCIDENT. THERE DOES NOT APPEAR TO BE ANY REASON THAT HE CANNOT GET OOB OFTEN IS REQUIRED FOR HIS CARE. WILL CONTINUE TO MONITOR.
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
[2018-03-14] MEDS ORDERED: AMLO5 PO ×2 (11:45)
[2018-03-14] MEDS ORDERED: ACET325 PO ×2 (11:48)
[2018-03-14] MEDS ORDERED: DEEP SEA44 ML ×2 (11:48)
[2018-03-14] MEDS ORDERED: THERA TABLET400 MCG PO ×2 (11:49)
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
--- NOTE | 2018-03-17 19:35 | NUR ---
LATE ENTRY CORRECTED PROVIDER NAME UNDER NO IV ACCESS NEEDED FROM TIFFANY GHOTRA TO MILDRED GHOTRA
== END 2018-03-14 15:32 | disposition home or self-care (01) ==
LOC: ER 11:18 → MEDS 11:19
PROVIDERS: Emergency Medicine; Internal Medicine; ADMIT Internal Medicine
DX: G93.40 Encephalopathy, unspecified (principal); E66.01 Morbid (severe) obesity due to excess calories; I89.0 Lymphedema, not elsewhere classified; J44.9 Chronic obstructive pulmonary disease, unspecified; G47.33 Obstructive sleep apnea (adult) (pediatric); I11.0 Hypertensive heart disease with heart failure; I50.30 Unspecified diastolic (congestive) heart failure; I87.8 Other specified disorders of veins; K21.9 Gastro-esophageal reflux disease without esophagitis; G89.29 Other chronic pain; Z87.891 Personal history of nicotine dependence; Z86.711 Personal history of pulmonary embolism; Z79.899 Other long term (current) drug therapy; Z99.81 Dependence on supplemental oxygen; Z68.44 Body mass index [BMI] 60.0-69.9, adult
CPT/HCPCS: 36415; 70450; 71045; 80048; 80053; 81001; 83605; 85025; 87040; 87077; 87086; 87186; 87804; 94640; 94760; 97110; 97162; 97167; 97530; 97535; 99285-25; G0378; G8978; G8979; G8987; G8988

== ENCOUNTER 2018-03-15 20:28 | Emergency (ER) | payer MEDICARE, OTHER ==
[~2018-03-15] VITALS: Ht 172.7 cm; Wt 191.4 kg
[~2018-03-15 20:28] MED LIST changes: +ACET325 PO; +AMLO5 PO; +DEEP SEA44 ML; +THERA TABLET400 MCG PO
== END 2018-03-15 23:22 | disposition home or self-care (01) ==
LOC: ER 20:28
DX: F43.9 Reaction to severe stress, unspecified (principal); I87.2 Venous insufficiency (chronic) (peripheral); I10 Essential (primary) hypertension; J44.9 Chronic obstructive pulmonary disease, unspecified; G89.29 Other chronic pain; M54.9 Dorsalgia, unspecified; Z87.891 Personal history of nicotine dependence
CPT/HCPCS: 99283

== ENCOUNTER 2018-03-22 15:30 | Emergency (ER) | payer MEDICARE, OTHER ==
[~2018-03-22] VITALS: Ht 172.7 cm; Wt 191.4 kg
[2018-03-22] MEDS ORDERED: MELO7.5 PO (15:53)
[2018-03-22] MEDS ORDERED: TRAZ50 PO (15:56)
[2018-03-22] MEDS ORDERED: SERT50 PO (15:56)
[2018-03-22 17:11] LABS: BASOPHILS ABSOLUTE AUTO 0.04 K/mm3 (0.00-0.23); BASOPHILS PERCENT AUTO 0 % (0-2); EOSINOPHILS ABSOLUTE AUTO 0.04 K/mm3 (0.00-0.68); EOSINOPHILS PERCENT AUTO 0 % (0-6); Hematocrit 34.5 % (37.0-53.0); Hemoglobin 10.5 g/dL (13.5-17.5); IMMATURE GRAN ABSOLUTE AUTO 0.03 K/mm3 (0.00-0.10); IMMATURE GRAN PERCENT AUTO 0 % (0-1); LYMPHOCYTES ABSOLUTE AUTO 1.05 K/mm3 (0.84-5.20); LYMPHOCYTES PERCENT AUTO 8 % (21-46); MONOCYTES PERCENT AUTO 11 % (4-13); Mean Corpuscular HGB 28.1 pg (26.0-34.0); Mean Corpuscular HGB Conc 30.4 g/dL (31.5-36.5); Mean Corpuscular Volume 92 fL (80-100); Mean Platelet Volume 9.7 fL (9.1-12.4); NEUTROPHILS ABSOLUTE AUTO 10.78 K/mm3 (1.96-9.15); NEUTROPHILS PERCENT AUTO 81 % (41-73); Platelet Count 324 K/mm3 (150-400); RDW Coefficient Variation 14.5 % (11.7-14.2); RDW Standard Deviation 48.4 fL (35.1-46.3); Red Blood Cell Count 3.74 M/mm3 (4.30-5.90); White Blood Cell Count 13.34 K/mm3 (4.00-11.30)
[2018-03-22 17:23] LABS: Alanine Aminotransfer (ALT/SGP 20 U/L (12-78); Albumin/Globulin Ratio 0.6 (0.8-1.8); Alk Phos 81 U/L (50-136); Anion Gap 6 mmol/L (6-16); Aspartate Aminotrans (AST/SGOT 24 U/L (12-37); Bilirubin, Total 0.4 mg/dL (0.1-1.0); Blood Urea Nitrogen 14 mg/dL (8-24); Bun/Creatinine Ratio 12.4 (12.0-20.0); CO2, Blood 32 mmol/L (21-32); Calcium, Blood 8.6 mg/dL (8.5-10.1); Chloride, Blood 100 mmol/L (98-108); Creatinine, Blood 1.13 mg/dL (0.60-1.20); Globulin, Blood 4.9 g/dL (2.2-4.0); Glomerular Filtration Rate >60 (60-); Glucose, Blood 97 mg/dL (70-99); Potassium, Blood 3.9 mmol/L (3.5-5.5); Sodium, Blood 138 mmol/L (136-145); Total Protein, Blood 7.9 g/dL (6.4-8.2)
[2018-03-22 17:43] LABS: PCO2 Arterial 66.1 mmHg (35-45); PO2 Arterial 76.8 mmHg (80-100); pH Blood Arterial 7.33 (7.35-7.45)
== END 2018-03-22 19:20 | disposition home or self-care (01) ==
LOC: ER 15:30
PROVIDERS: Emergency Medicine
DX: T40.2X1A Poisoning by other opioids, accidental (unintentional), initial encounter (principal); T40.3X1A Poisoning by methadone, accidental (unintentional), initial encounter; Z79.899 Other long term (current) drug therapy; I10 Essential (primary) hypertension; J44.9 Chronic obstructive pulmonary disease, unspecified
CPT/HCPCS: 36415; 36600; 80053; 82803; 85025; 93005; 93010; 96374; 96375; 99284-25; J1885; J2310

== ENCOUNTER 2018-03-23 16:21 | Inpatient (IN) | payer MEDICARE, OTHER ==
[~2018-03-23] VITALS: Ht 170.2 cm; Wt 202.5 kg
[~2018-03-23 16:21] MED LIST changes: +MELO7.5 PO
[2018-03-23 18:12] LABS: Base Excess Venous 8.3 mmol/L; Bicarbonate Venous 30.5 mmol/L (24.0-30.0); PCO2 Venous 61.7 mmHg (38-42); PO2 Venous 90.7 mmHg (38-42); pH Blood Venous 7.35 (7.34-7.37)
[2018-03-23 18:23] LABS: BASOPHILS ABSOLUTE AUTO 0.05 K/mm3 (0.00-0.23); BASOPHILS PERCENT AUTO 0 % (0-2); EOSINOPHILS PERCENT AUTO 2 % (0-6); Hematocrit 34.2 % (37.0-53.0); Hemoglobin 10.6 g/dL (13.5-17.5); IMMATURE GRAN ABSOLUTE AUTO 0.05 K/mm3 (0.00-0.10); IMMATURE GRAN PERCENT AUTO 0 % (0-1); LYMPHOCYTES ABSOLUTE AUTO 0.88 K/mm3 (0.84-5.20); LYMPHOCYTES PERCENT AUTO 7 % (21-46); MONOCYTES ABSOLUTE AUTO 1.26 K/mm3 (0.16-1.47); MONOCYTES PERCENT AUTO 10 % (4-13); Mean Corpuscular HGB 28.5 pg (26.0-34.0); Mean Corpuscular Volume 92 fL (80-100); Mean Platelet Volume 9.5 fL (9.1-12.4); NEUTROPHILS ABSOLUTE AUTO 10.33 K/mm3 (1.96-9.15); NEUTROPHILS PERCENT AUTO 80 % (41-73); Platelet Count 281 K/mm3 (150-400); RDW Coefficient Variation 14.5 % (11.7-14.2); RDW Standard Deviation 49.1 fL (35.1-46.3); Red Blood Cell Count 3.72 M/mm3 (4.30-5.90); White Blood Cell Count 12.87 K/mm3 (4.00-11.30)
[2018-03-23 19:02] LABS: Alanine Aminotransfer (ALT/SGP 20 U/L (12-78); Albumin, Blood 2.8 g/dL (3.4-5.0); Albumin/Globulin Ratio 0.6 (0.8-1.8); Alk Phos 73 U/L (50-136); Anion Gap 6 mmol/L (6-16); Aspartate Aminotrans (AST/SGOT 41 U/L (12-37); Bilirubin, Total 0.4 mg/dL (0.1-1.0); Blood Urea Nitrogen 13 mg/dL (8-24); Bun/Creatinine Ratio 12.9 (12.0-20.0); CO2, Blood 31 mmol/L (21-32); Calcium, Blood 8.3 mg/dL (8.5-10.1); Chloride, Blood 101 mmol/L (98-108); Creatinine, Blood 1.01 mg/dL (0.60-1.20); Glomerular Filtration Rate >60 (60-); Glucose, Blood 100 mg/dL (70-99); Potassium, Blood 4.4 mmol/L (3.5-5.5); Sodium, Blood 138 mmol/L (136-145); Total Protein, Blood 7.8 g/dL (6.4-8.2); Troponin I <0.015 ng/mL (0.000-0.040)
--- NOTE | 2018-03-23 22:18 | NUR ---
PT ARRIVE IN THE ROOM VIA STRETCHER. PT MOBILITY DEVICE PLACED UNDER PT FOR POSITIONING AND CARE. PT TOLERATED THE PLACEMENT WEL. PT HAS A STRONG ODOR ON HIS BODY, FILTHY TATTERED DRESSINGS ON HIS LE BILAT, AND 18G L UA. PT S A/O, C/O BEING COL AND GENERALLY UNCOMFORTABLE. VSS, AFEBRILE, 4L NC. PT REFUSING CPAP. WILL CONTINUE TO MONITOR
--- NOTE | 2018-03-24 05:22 | NUR ---
VSS, AFEBRILE, A/O, 18G L UA, LR @ 125 ML/HR, BIPAP FOR SLEEP, PT'S REYES PREVENTS A GOOD SEAL, BUT PT'S 02 SATS DROP SHARPLY W/OUT IT. PT ON INFLATABLE MATTRESS USED FOR MOBILIZING PT IN BED. BILAT LE HAVE WEEPING EDEMA, ANASARCA, PT'S BODY HAS A STRONG ODOR. PT REFUSING A SHOWER AT ADMISSION, STATES THAT HE IS VERY TIRED. PT DID NOT BRING HIS CANES FOR THIS ADMISSION. PT'S LAST ADMISSION RESULTED IN HIS DISCHARGE HOME WITH PT. HE REFUSED TO PARTICIPATE IN PT, AND IT WAS DISCONTINUED. PT STATES, "IT WILL BE DIFFERENCE THIS TIME". PT WANTS TO BE PLACED IN A LTC FACILITY BECAUSE HE CANNOT TAKE CARE OF HIMSELF PROPERLY.
--- NOTE | 2018-03-24 15:34 | NUR ---
PT TRANSFERRED TO ROOM 335. TRANSFER PROCESS TOOK ROUGHLY 40 MIN INCLUDING A FULL BED BATH. AT 1520, PTS SATS WERE HOVERING AROUND 88-89. NURSE CALLED RESPIRATORY THERAPY, NICKI MEDELLIN, SEE NOTE. PT HAS RECOVERED AND IS FINISHING BREATHING TREATMENT AT THIS TIME. PICTURES OF EXCORIATION ON MICAELA AREA TAKEN AND IN CHART
[2018-03-24 16:48] LABS: Source, Urine Voided
--- NOTE | 2018-03-24 16:49 | NUR ---
put pt i a bigger bed, gave him a bed bath, did tremayne care, gave new water, call light in reach,
--- NOTE | 2018-03-24 16:51 | NUR ---
SHIFT SUMMARY PT AXO X4, THOUGH CALLS OUT THROUGHOUT THE DAY AND REFUSES SOME CARE. DR CHEN IN THIS MORNING, SEE NOTE. DRESSINGS TO BILATERAL CALVES COMPLETED BY DR CHEN. PT REFUSES TO TRY TO WALK, STATES HE "THINKS HE WOULD FALL." PT EDUCATED ABOUT MOBILITY. PT TRANSFERRED TO LIFT ROOM, 355, SEE NOTE. PHOTOS TAKEN OF EXCORIATION AT THAT TIME. PT DESAT WITH EXERTION, SEE RT NOTE. BP ELEVATED, DR DOMINGUEZ NOTIFIED AT 1649 WHO IS PUTTING IN NEW ORDERS AT THIS TIME. APS AND ADJUSTMENT CLERK IN TO EVALUATE PT, SEE NOTES. PT ON SPECIALTY BARIATRIC BED AT THIS TIME, BED IN LOW POSITION, CALL LIGHT WITHIN REACH. UA SENT TO LAB, PENDING AT THIS TIME.
[2018-03-24 16:54] LABS: Appearance, Urine Clear (Clear); Bilirubin, Urine Neg (Neg); Blood, Urine 4+ (Neg); Color, Urine Yellow (P-Yellow); Glucose Qualitative, Urine Neg (Neg); Ketones, Urine Neg (Neg); Leukocyte Esterase, Urine Neg (Neg); Nitrite, Urine Neg (Neg); Protein, Urine Neg (Neg); Urobilinogen, Urine NORM (Normal)
[2018-03-24 17:11] LABS: Bacteria Not Seen /hpf; Squamous Epithelial Cells Not Seen /hpf (Few); White Blood Cells, Urine 0-2 /hpf (0-5)
[2018-03-25 05:45] LABS: Anion Gap 4 mmol/L (6-16); Blood Urea Nitrogen 14 mg/dL (8-24); Bun/Creatinine Ratio 13.1 (12.0-20.0); CO2, Blood 35 mmol/L (21-32); Calcium, Blood 7.9 mg/dL (8.5-10.1); Chloride, Blood 102 mmol/L (98-108); Creatinine, Blood 1.07 mg/dL (0.60-1.20); Glomerular Filtration Rate >60 (60-); Glucose, Blood 119 mg/dL (70-99); Potassium, Blood 4.6 mmol/L (3.5-5.5); Sodium, Blood 141 mmol/L (136-145)
--- NOTE | 2018-03-25 06:31 | NUR ---
SHIFT SUMMARY PT IS A 67 Y/O M, ADMITTED FOR PHYSICAL DECONDITIONING. HE IS BEDBOUND, AND DIFFICULT TO TURN DUE TO HIS SIZE. THE PT COMPLAINED OF GENERALIZED PAIN FRO HIS ABDOMEN TO HIS LEGS. HE WAS MEDICATED WITH HIS SCHEDULED METHADONE, AND SLEPT DEEPLY THROUGH THE NIGHT. THE PT WAS SCHEDULED TO HAVE Q8 PO HYDRALAZINE FOR HIS BP, BUT DID NOT RECEIVE HIS INITIAL DOSE UNTIL 2029. THE HOSPITALIST, GIO MIJARES, WAS CONSULTED ABOUT CONTINUING WITH HIS MIDNIGHT DOSE, AND AGREED THAT THE PT SHOULD GET IT AFTER HIS BP WAS CHECKED. HOWEVER, HE WAS UNABLE TO BE WOKEN ENOUGH TO SAFELY TAKE HIS PO MED. HIS BP WAS HIGH DURING THE EVENING VITALS AT 183/108. DURING THE MIDNIGHT AND MORNING VITALS, HOWEVER, HIS BP CAME DOWN TO 143/68 AND 139/88. HE REMAINED ON 6L OF O2 VIA NC DURING THE NIGHT, AND HIS SATS STAYED ABOVE 90% THROUGH THE NIGHT. ALL OTHER VITALS STABLE. PT HAS SKIN BREAKDOWN OVER A LARGE PART OF HIS BODY. HE ALSO HAS WOUNDS ON HIS LOWER LEGS THAT WERE DRESSED BY DR CHEN, WITH NO SIGNS OF BLEED THROUGH. NO OTHER ACUTE CHANGES IN PT CONDITION NOTED DURING THE NIGHT. WILL CONTINUE TO MONITOR AND TREAT PER EMAR UNTIL HAND OFF TO DAY SHIFT.
--- NOTE | 2018-03-25 13:11 | NUR ---
HE WAKES UP WHEN CARE GIVEN. HE KEEPS YELLING OUT NO RIGHT NOW AND SAID NO TO MEDICATIONS. I FELT HE MAY BE ALERT ENOUGH NOW BUT HE REFUSED. WILL TRY AGAIN LATER THIS AFTERNOON. HE HAS BEEN INCONTINENT OF URINE X2 TODAY.
[2018-03-25 16:15] LABS: PO2 Arterial 54.8 mmHg (80-100); pH Blood Arterial 7.32 (7.35-7.45)
[2018-03-25 16:16] LABS: PCO2 Arterial 76.1 mmHg (35-45)
--- NOTE | 2018-03-25 16:30 | NUR ---
Came to see patient in room 335 and got quick report from Trang DENNY, patient was moved very quickmly to ICU-6 and was very agitated and yelling out. He was left on Bariatric bed ion ICU-6 room. RT tried to get mask to fit and was having hard time and patient continued to yell out. He arrived in restraints and swing arms and dangerous for staff. His sats varied from 96% to 88% depending on mask fitment. He was yelling i want to go home and was not very directable.
--- NOTE | 2018-03-25 17:00 | NUR ---
Dr Bradley gave order for Precedex and started at 0.7 and went to 1.4 mcg/kg/hr and he started to relax. RT placed larger mask and better fitment and he as been resting. Systolic up 205 and HR 77, called Dr Bradley for hypertensive meds. BIPAP at 18/10 FiO2 40% and BU rate 14 and sats 96%.
--- NOTE | 2018-03-25 17:01 | NUR ---
HE WAS TRANSFERRED TO ICU AT 1635 FOR BIPAP WITH RESTRAINTS. ABG COLLECTED SHORTLY BEFORE TRANSFER. REPORT GIVEN TO AKILA DENNY. DAVID WAS TOO LETHARGIC THIS MORNING FOR ANY PO INTAKE, THOUGH HE DID ANSWER "EVERYWHERE" WHEN I ASKED ABOUT PAIN AND ANSWERED "I DON'T KNOW" TO QUESTION ABOUT ANY NUMBNESS OR TINGLING. HE DID NOT ANSWER ME WHEN I ASKED HIM WHERE HE IS. HE GROANED. HE HAD LARGE JERKING MOVEMENTS IN HIS ARMS AND SHOULDERS. WHEN HE RELAXED DOWN ON THE BED, NO JERKY MOVEMENTS. I NOTIFIED OF ALL THIS ON HIS MORNING ROUNDS AND ALSO TOLD HIM THE NIGHT NURSE SAID DAIVD DID NOT AROUSE WITH A STERNAL RUB. HE THEN SLEPT THE REST OF THE MORNING. HE WAS CHANGED AGAIN AROUND NOON. HE YELLED ALL THROUGH IT, HAD THE SAME JERKY MOVEMENTS AT THE END, YELLED OUT "NO" MULTIPLE TIMES ,BUT WHEN I ASKED HIM ABOUT TAKING SOME MEDICATIONS NOW THAT HE IS MORE ALERT HE TOLD ME KNOW. HE DID NOT YELL IT. IN THE 3 O'CLOCK HOUR, HE WAS FOUND TO HAVE HIS OXYGEN OFF WHEN THE WAFER FAB TECHNICIAN'S WENT IN TO CHANGE HIM AGAIN. HE WOPULD NOT LET THEM PUT THE CANNULA BACK ON. HIS COLOR WAS FADING, BIOX SHOWING 70'S AND HE BECAME DELIRIOUS AND COMBATIVE. I THEN CAME IN THE ROOM, WAS UNABLE TO CALM HIM OR REPLACE HIS O2 AND INITIATED RESTRAINTS AND CALLED RT AND OTHER NURSING HELP. BIPAP MASK PUT ON WITH 6L O2 I BELIEVE. HE CONTINUED TO GRUNT AND YELL OUT. BIOX SENSOR ALSO CHANGED. HE FINALLY STARTED TO CALM DOWN, SATS ERIN, DOCTOR NOTIFIED. ICU TRANSFER ORDER OBTAINED D/T POLICY OF RESTRAINTS WITH BIPAP. I FEEL CONFIDENT HE WILL NOT LEAVE BIPAP OR CANNULA ON AT THIS TIME. HE NEEDS THE RESTRAINTS. YANI DENNY, MYSELF AND VIKI FISHER TRANSFERRED HIM TO ICU 6 IN HIS BARIATRIC AIR BED. WE USED THE LIFT FOR ALL MOBILIZATION IN THE BED TODAY.
--- NOTE | 2018-03-25 18:06 | NUR ---
Reduced Precedex to 0.7 mcg/kg/hr and he is resting quietly, restraints remain in place as he is trying to raise arms while resting. Systolic came down and held Hydralazine and HR 66. No changes to BIPAP except newer mask that Denis FISHER placed that has great fitment.
--- NOTE | 2018-03-25 19:44 | NUR ---
ASSUMED CARE OF PT. REPORT RECEIVED AT BEDSIDE. PT PRESENTS IN BED WEARING BIPAP MASK WITH 18/10 SETTING WITH BACKUP RATE 14. FIO2 40 PERCENT. PT TOLERATING THIS WELL. PT ON PRECEDEX DRIP AT 0.7 MCG'S/KG/HOUR. IS AROUSABLE. SOFT BI LAT WRIST RESTRAINTS IN PLACE TO KEEP PT FROM PULLING BIPAP MASK. WILL EVALUATE FOR ABILITY TO REMOVE SONALI. WILL REVIEW CHART AND PLAN OF CARE FOR THIS PT.
--- NOTE | 2018-03-26 00:06 | NUR ---
PT HAS BEEN FULLY INCONTINENT TO URINE WHEREAS ATTEMPTS TO PLACE AND HAVE CONDOM CATH WERE UNSUCESSFUL SECONDARY TO PT'S ANATOMY. PT HAS WOUND TO MICAELA AREA FROM CONTACT WITH URINE AND HIS OBESITY. PLACED 16 GIBRALTARIAN SORIA CATHETER WITH IMMEDIATE RETURN OF 250 ML URINE. SAMPLE COLLECTED TO SEND TO LAB FOR URINALYSIS PER PROTOCOL. PT TOLERATES THIS PROCEDURE WELL. HAVE NOTED PT'S BLOOD PRESSURE HAS COME DOWN SOME AFTER CATHETER PLACEMENT. EXPLAINED TO PT RATIONALE. WILL CONTINUE TO MONITOR PRECEDEX DRIP, AND PT'S COMPLIANCE WITH WEARING BIPAP. WHEN HIS HANDS ARE FREE FROM RESTRAINTS DURING TURNS AND BED CHANGE, PT WILL AGGRESSIVELY PULL AT BIPAP. PT DESATURATES WITH BIPAP MASK OFF. WILL CONTINUE TO MONITOR FOR ABILITY TO REMOVE RESTRAINTS SOON ABLE, AND PT NO LONGER AGGRESSIVELY PULLING AT MASK. PT DOES REMAIN SOMEWHAT CONFUSED. REORIENTED PT WHEN NEEDED.
[2018-03-26 00:50] LABS: Source, Urine Catheter
[2018-03-26 01:00] LABS: Bilirubin, Urine Neg (Neg); Blood, Urine 3+ (Neg); Glucose Qualitative, Urine Neg (Neg); Ketones, Urine 2+ (Neg); Leukocyte Esterase, Urine Neg (Neg); Nitrite, Urine Neg (Neg); Protein, Urine 1+ (Neg); Specific Gravity, Urine 1.015 (1.003-1.022); Urobilinogen, Urine NORM (Normal)
[2018-03-26 01:03] LABS: Appearance, Urine Clear (Clear); Color, Urine Yellow (P-Yellow)
[2018-03-26 01:11] LABS: Amorphous Light (0-Heavy); Bacteria Rare /hpf; Mucus Light (0-Heavy); Squamous Epithelial Cells Few /hpf (Few); White Blood Cells, Urine 0-2 /hpf (0-5)
--- NOTE | 2018-03-26 04:04 | NUR ---
PT HAS BEEN VERY AGITATED THROUGHOUT THE NIGHT. DOES FALL ASLEEP FOR VERY SHORT PERIODS THEN AWAKENS YELLING AND THRASHING HIS HEAD ABOUT TO ATTEMPT TO GET BIPAP MASK OFF. BLOOD PRESSURES HAVE NOT RESPONDED VERY WELL TO HYDRALAZINE. WAS ABLE TO DISLODGE HIS BIPAP MASK ONCE AND QUICKLY DESATURATED TO 57 PERCENT. PT THEN HAD WHAT APPEARED TO BE A SYNCOPAL EPISODE. WITH BIPAP MASK BACK IN PLACE, PT AWAKENS AND AGAIN BEGINS TO YELL OUT AND TRY TO GET HIS BIPAP MASK OFF. MANY ATTEMPTS TO EXPLAIN TO PT ABOUT MASK HAVE BEEN MADE. PT VERBALIZES HE DOES NOT KNOW WHERE HE IS AT THE TIME. WANTS TO GET OUT OF BED AND "GO". PT UNABLE TO STAND AT THIS TIME. 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 PT HAS DEMONSTRATED BEING SOMEWHAT SHAKY. NO REAL IMPROVEMENTS NOTED WITH THESE DOSES. PT UNCOOPERATIVE WITH Q 4 HOUR ORAL CARE. IS NOT COOPERATIVE WITH ANY CARE INCLUDING Q 2 HOUR TURNS IN BED. WILL CONTINUE TO MONITOR PT.
--- NOTE | 2018-03-26 05:28 | NUR ---
PT AWAKENING AGAIN AND IS YELLING. HAVE ATTEMPTED TO GIVE PT A BREAK FROM BIPAP. HE REMAINED UNCHANGED IN HIS AGITATION LEVEL. ATTEMPTED TO GET OXYMIZER OFF WELL. UNFORTUNATELY AT 6 LITERS PER MINUTE PT BEGAN TO DESATURATE TO 85 PERCENT. PLACED BACK TO BIPAP. WHEREAS HE WAS >90 PERCENT SATURATED. WILL CONTINUE TO MONITOR PT, AND WILL REPORT OFF TO ONCOMING RN.
--- NOTE | 2018-03-26 07:40 | NUR ---
Recieved report from Flash Dacosta. Patient laying supine in bed with HOB at 30 degrees and is in bariatric bed. He arouse to verbal and painful stimuli but only moans and groans and is ussually un consolable. He is on BIPAP 18/10 at 50% FiO2 and BR 14 and sats low to mid 90%'s He had goodrich placed last night and has yellow urine draining to gravity. He is obese and has bilateral LE wounds wrapped in maurice bandages that was chaged by Dr Baker. He has bilateral mepelex heel dressings in place and has dry crackley skin sluffing off. He positions self in bed left to right and twists in bed but assist with positioning using the ceiling lift. He has 18 ga IV to Left arm and is infusing Precedex 0.7 mcg/kg/hr and has goof affect with keeping patient calm.
[2018-03-26 08:31] LABS: Hematocrit 38.6 % (37.0-53.0); Hemoglobin 11.4 g/dL (13.5-17.5); Mean Corpuscular HGB 27.6 pg (26.0-34.0); Mean Corpuscular HGB Conc 29.5 g/dL (31.5-36.5); Mean Corpuscular Volume 94 fL (80-100); Mean Platelet Volume 9.2 fL (9.1-12.4); Platelet Count 256 K/mm3 (150-400); RDW Coefficient Variation 14.2 % (11.7-14.2); RDW Standard Deviation 48.3 fL (35.1-46.3); Red Blood Cell Count 4.13 M/mm3 (4.30-5.90); White Blood Cell Count 12.66 K/mm3 (4.00-11.30)
[2018-03-26 08:52] LABS: Anion Gap 4 mmol/L (6-16); Blood Urea Nitrogen 15 mg/dL (8-24); Bun/Creatinine Ratio 19.9 (12.0-20.0); CO2, Blood 37 mmol/L (21-32); Calcium, Blood 8.6 mg/dL (8.5-10.1); Chloride, Blood 102 mmol/L (98-108); Creatinine, Blood 0.75 mg/dL (0.60-1.20); Glomerular Filtration Rate >60 (60-); Glucose, Blood 106 mg/dL (70-99); Potassium, Blood 3.8 mmol/L (3.5-5.5); Sodium, Blood 143 mmol/L (136-145)
--- NOTE | 2018-03-26 09:28 | NUR ---
Patient tolerated meds PO with pudding and took several sips of water with no sign of aspiration. He does panic with BIPAP off at all but than trys to pull off when on. When giving meds i placed him on oxymizer at 10 liters and he maintained 90%'s sats for several minutes before he started dropping when he panics. He is currently resting. During that period i tried leaving him out of restyraints and he was pulling at lines and tubes as well as mask, and when he panics he starts swinging his arms and grabbing at people and very unsafe for staff.
--- NOTE | 2018-03-26 11:30 | NUR ---
Patient awaken to verbal stimuli and breifly removed BIPAP and cave small amount of pudding with 3 PO meds and he rinsed with water and replaced BIPAP with moderate anxiousness. Dr Reza seeing patient and will be doing a PICC line and placing Dobhoff for nutrition and PO meds to protect from him aspirating . He continues to be hypertensive with rate in the 60's No changes to BIPAP and he sats low to mid 90%'s and Precedex continues to run at 0.7 mcg/kg/hr.
[2018-03-26 12:00] LABS: Base Excess Venous 14.9 mmol/L; Bicarbonate Venous 36.6 mmol/L (24.0-30.0); PCO2 Venous 62.4 mmHg (38-42); PO2 Venous 113 mmHg (38-42); pH Blood Venous 7.41 (7.34-7.37)
--- NOTE | 2018-03-26 15:41 | NUR ---
No significant changes, his systolic in the 170 post PO Norvasc, HR 60 and remains on 18/10 FiO2 50% BIPAP. Going in to give bath and wound change.
--- NOTE | 2018-03-26 15:43 | NUR ---
Patient had 4 nurses giving bath, linen change, wound change and rectal tube placement. When bathing him and rolled over he had about 300ml of light brown liquid stool and placed rectal tube, it came out first time and went deeper and was more secured and had stool return in tube. Cath care again and tremayne and fold care and applied Nystatin power in all areas. Bilateral LE wound change and also applied Mepelex to heels with Telfa dressing to bottom of feet where existing wounds are. Patient stated he felt better and had RT come and re-set mask of BIPAP. Prior placed PICC in LALITO for longterm use. Patient tolerated all well.
--- NOTE | 2018-03-26 18:01 | NUR ---
Patient has been resting quietly since bath, just awakened and gave three sips of water and tolerated well. His tube feeding was started and tolerating well. Precedex remains at 0.7 mcg/kg/hr and works well for his anxiety. Still hypertensive and will address with Dr Reza.
--- NOTE | 2018-03-26 22:07 | NUR ---
ASSUMING CARE RECEIVED PT REPORT FROM EDUIN CEJA. PT IS ADMITTED DUE TO DECONDITIONING. FAMILY STATES TAHT THEY ARE NO LONGER ABLE TO CARE FOR PT AT HOME. PT IS ON BIPAP AT THE [facility] CARE ASSUMED, BIPAP SETTINGS ARE 18/10 WITH 50% FIO2. PT HAS SATS IN THE MID 90'S. SHORTLY AFTER CARE ASSUMED PT FIO2 WAS REDUCED TO 40% BY RT. PT SPO2 IS MAINTAINING AFTER REDUCTION OF FIO2. PT IS ABLE TO ANSWER ORIENTATION QUESTIONS APPROPRIATELY. PT IS SPEAKING IN SHORT ANSWERS MOSTLY. PT IS IRRITABLE AND CONFUSED AT TIMES. AT THE TIME OF INITIAL ASSESSMENT PT ASKED WHY HE WAS IN THE HOSPITAL. PT STATED THAT HE DID NOT WANT TO BE HERE AND THAT HE DIDNT WANT TO "LIVE LIFE LIKE A BEACHED WHALE". PT STATED THAT HE WANTED TO BE "LOADED WITH DRUGS UNTIL HE ." DR ROJO INFORMED OF PTS STATEMENTS. PT DOES NOT APPEAR TO BE MENTALLY COMPETENT ENOUGH TO BE ABLE TO MAKE SOUND DECISIONS AT THIS TIME. PT HAS BEEN HYPERTENSIVE AND IS ON A NITRO GTT AT 5MCG/MIN. NITRO TITRATED UP TO 10MCG/MIN SHORTLY AFTER SHIFT REPORT. PT IS RECEIVING PRECEDEX GTT AT 0.7MCG/KG/HR. PT HAS SORIA CATH AND RECTAL TUBE IN PLACE AT THIS TIME. BOTH APPEAR TO BE PATENT AND DRAINING TO GRAVITY AT THIS TIME. PT IS RECEIVING TUBE FEEDING OF JEVITY 1.5 VIA DOBHOFF AND A RATE OF 25ML/HR. PT HAS A GOAL RATE OF 65ML/HR. WILL INCREASE RATE THROUGH THE NIGHT APPROPRIATE. ASSUMING CARE OF PT AT THE TIME OF SHIFT REPORT. WILL CONTINUE TO MONITOR PT.
[2018-03-27 03:37] LABS: BASOPHILS ABSOLUTE AUTO 0.03 K/mm3 (0.00-0.23); BASOPHILS PERCENT AUTO 0 % (0-2); EOSINOPHILS ABSOLUTE AUTO 0.47 K/mm3 (0.00-0.68); EOSINOPHILS PERCENT AUTO 4 % (0-6); Hematocrit 35.5 % (37.0-53.0); Hemoglobin 10.6 g/dL (13.5-17.5); IMMATURE GRAN ABSOLUTE AUTO 0.05 K/mm3 (0.00-0.10); IMMATURE GRAN PERCENT AUTO 0 % (0-1); LYMPHOCYTES ABSOLUTE AUTO 0.95 K/mm3 (0.84-5.20); LYMPHOCYTES PERCENT AUTO 7 % (21-46); MONOCYTES ABSOLUTE AUTO 1.01 K/mm3 (0.16-1.47); MONOCYTES PERCENT AUTO 8 % (4-13); Mean Corpuscular HGB 28.1 pg (26.0-34.0); Mean Corpuscular HGB Conc 29.9 g/dL (31.5-36.5); Mean Corpuscular Volume 94 fL (80-100); NEUTROPHILS ABSOLUTE AUTO 10.65 K/mm3 (1.96-9.15); NEUTROPHILS PERCENT AUTO 81 % (41-73); Platelet Count 268 K/mm3 (150-400); RDW Coefficient Variation 14.2 % (11.7-14.2); RDW Standard Deviation 48.9 fL (35.1-46.3); Red Blood Cell Count 3.77 M/mm3 (4.30-5.90); White Blood Cell Count 13.16 K/mm3 (4.00-11.30)
[2018-03-27 04:01] LABS: Anion Gap 4 mmol/L (6-16); Blood Urea Nitrogen 18 mg/dL (8-24); Bun/Creatinine Ratio 25.9 (12.0-20.0); CO2, Blood 39 mmol/L (21-32); Calcium, Blood 8.1 mg/dL (8.5-10.1); Chloride, Blood 101 mmol/L (98-108); Creatinine, Blood 0.69 mg/dL (0.60-1.20); Glomerular Filtration Rate >60 (60-); Glucose, Blood 120 mg/dL (70-99); Magnesium, Blood 1.6 mg/dL (1.6-2.4); Potassium, Blood 3.5 mmol/L (3.5-5.5); Sodium, Blood 144 mmol/L (136-145)
[2018-03-27 05:21] LABS: PCO2 Arterial 66.2 mmHg (35-45); PO2 Arterial 76.5 mmHg (80-100)
--- NOTE | 2018-03-27 06:00 | NUR ---
SHIFT SUMMARY NOTE PT HAS REMAINED ABLE TO ANSWER ORIENTATION QUESTIONS APROPRIATELY THROUGH THE NIGHT WHILE AWAKE. PT REMAINS ON BIPAP AT 18/10 WITH FIO2 40%. PT IS ABLE TO MAINTAIN SPO2 IN THE MID TO HIGH 90'S WITH BIPAP MASK IN PLACE. PT REMAINS ON PRECEDEX GTT AT 0.7. PRECEDEX WAS TITRATED DOWN TO 0.5 AND PT APPEARED TO BECOME MORE AGITATED AND DEMANDING. PT REMAINS ON NITRO GTT AT 20MCG/MIN PT BP IS STABLE AT THIS TIME IN THE 150'S SYSTOLIC. PT HR REMAINS STABLE IN THE 70S. PT CONTINUES TO HAVE RECTAL TUBE AND SORIA CATH IN PLACE AT THIS TIME. BOTH REMAIN PATENT AND DRAINING TO GRAVITY AT THIS TIME. PT CONTINUES ON TUBE FEEDING, RATE WAS INCREASED TO 40ML/HR. WILL REPORT OFF TO ONCOMING DAY SHIFT NURSE.
--- NOTE | 2018-03-27 07:12 | NUR ---
Recieved report from Masoud DENNY. Patient has wedge placed on right side and head at 20 degrees. He is on BIPAP 18/10 and was just turned down to 35% FiO2. He is mostly alert and very demanding when wanting something. He is able to hold short conversations. He has 18ga IV in LAC, dressing intact and site WNL's and is flushed and SL. He also has PICC line LALITO and dressing intact and site WNL's and is infusing Precedex 0.7mcg/kg/hr and Nitro at 20 mcg/hr and systolic 140-150's and HR 85. Rectal tube in place with little output bt has light cristina liquid stool in line. He has 16Fr. Covarrubias in place and is drain light ayush urine. He has bilateral LE dressings and they are maurice wrapped. He has mepelex heel protectors and telfa dressings to bottom of both feet.
--- NOTE | 2018-03-27 09:30 | NUR ---
Patient tolerated PO meds in Dobhoff. he also tolerated several sips of water with no signs of aspiration. Jevity TF continues at 40ml/hr. Nitro gtt at 20mcg and systolics in the 140's and HR in the 80's. He is a little more lucid and what to talk when your in room. RT turned FiO2 down to 35%.
--- NOTE | 2018-03-27 11:31 | NUR ---
Dr Reza was in with patient and will start clear liquid diet. He has been more interactive with staff, still alittle demanding. Nitro gtt remains at 20mcg/hr with systolic 140-150. No changes in BIPAP. Precedex stays at 0.7 mcg/kg/hr.
--- NOTE | 2018-03-27 13:30 | NUR ---
Patient tolerated jello well and several sips of water. He continues to be cooperative with care and remains on BIPAP. Nitro remains at 20 mcg and systolics 140-150's, HR 80's. He has no other significant changes to day.
[2018-03-27 14:52] LABS: Magnesium, Blood 1.5 mg/dL (1.6-2.4); Phosphorus, Blood 2.2 mg/dL (2.5-4.9); Potassium, Blood 3.5 mmol/L (3.5-5.5)
--- NOTE | 2018-03-27 17:55 | NUR ---
Patient tolerating full liq. diet. Precedex is on standby and Nitro at 15mcg. He has been pleasant and cooperative with care. Systolic 140, HR 50-60's no new changes to BIPAP.
--- NOTE | 2018-03-27 21:34 | NUR ---
ASSUMING CARE RECEIVED PT REPORT FROM EDUIN CEJA. PT IS ALERT AND ORIENTED AT THIS TIME. PT IS ON BIPAP AT 18/10 WITH 35% FIO2. PT SPO2 IS MAINTAINING IN THE MID TO HIGH 90'S. PT IS TAKING PO INTAKE AND IS ON A FULL LIQUID DIET. PT IS PLACED ON 7L O2 VIA OXYMIZER WHEN BIPAP MASK IS REMOVED. PT HAS BEEN TOLERATING PO INTAKE WELL. PT IS RECEIVING TUBE FEEDING VIA DOBHOFF. PT IS RECEIVING JEVITY 1.5 AT A RATE OF 55ML/HR AT THE TIME OF SHIFT REPORT. SHORTLY AFTER SHIFT REPROT RATE OF TUBE FEED WAS INCREASED TO GOAL RATE OF 65ML/HR PT IN NO LONGER ON PRECEDEX AT THIS TIME. PT IS RECEIVING NITRO GTT FOR HTN. PT BP IS IN THE 150-160'S AT TIMES. WILL TITRATE NEEDED. PT HAS A RECETAL TUBE IN PLACE AT THIS TIME CURRENTLY DRAINING BROWN LIQUIDY STOOL. PT HAS A SORIA CATH IN PLACE AT THIS TIME CURRENTLY PATENT AND DRAINING CLEAR YELLOW URINE. ASSUMED CARE OF PT AT THE TIME OF SHIFT REPORT. WILL CONTINUE TO MONITOR PT.
[2018-03-28 03:33] LABS: BASOPHILS ABSOLUTE AUTO 0.03 K/mm3 (0.00-0.23); BASOPHILS PERCENT AUTO 0 % (0-2); EOSINOPHILS ABSOLUTE AUTO 0.87 K/mm3 (0.00-0.68); EOSINOPHILS PERCENT AUTO 7 % (0-6); Hematocrit 34.7 % (37.0-53.0); Hemoglobin 10.7 g/dL (13.5-17.5); IMMATURE GRAN ABSOLUTE AUTO 0.07 K/mm3 (0.00-0.10); IMMATURE GRAN PERCENT AUTO 1 % (0-1); LYMPHOCYTES ABSOLUTE AUTO 1.33 K/mm3 (0.84-5.20); LYMPHOCYTES PERCENT AUTO 10 % (21-46); MONOCYTES ABSOLUTE AUTO 1.25 K/mm3 (0.16-1.47); MONOCYTES PERCENT AUTO 9 % (4-13); Mean Corpuscular HGB 28.2 pg (26.0-34.0); Mean Corpuscular HGB Conc 30.8 g/dL (31.5-36.5); Mean Corpuscular Volume 92 fL (80-100); Mean Platelet Volume 9.1 fL (9.1-12.4); NEUTROPHILS ABSOLUTE AUTO 9.88 K/mm3 (1.96-9.15); NEUTROPHILS PERCENT AUTO 74 % (41-73); Platelet Count 278 K/mm3 (150-400); RDW Coefficient Variation 14.1 % (11.7-14.2); RDW Standard Deviation 47.5 fL (35.1-46.3); Red Blood Cell Count 3.79 M/mm3 (4.30-5.90); White Blood Cell Count 13.43 K/mm3 (4.00-11.30)
[2018-03-28 03:36] LABS: Base Excess Venous 18.7 mmol/L; Bicarbonate Venous 40.6 mmol/L (24.0-30.0); PCO2 Venous 49.2 mmHg (38-42); PO2 Venous 60 mmHg (38-42); pH Blood Venous 7.53 (7.34-7.37)
[2018-03-28 03:48] LABS: Anion Gap 6 mmol/L (6-16); Blood Urea Nitrogen 16 mg/dL (8-24); Bun/Creatinine Ratio 21.8 (12.0-20.0); CO2, Blood 39 mmol/L (21-32); Calcium, Blood 7.7 mg/dL (8.5-10.1); Chloride, Blood 95 mmol/L (98-108); Creatinine, Blood 0.73 mg/dL (0.60-1.20); Glomerular Filtration Rate >60 (60-); Glucose, Blood 118 mg/dL (70-99); Magnesium, Blood 1.5 mg/dL (1.6-2.4); Phosphorus, Blood 1.7 mg/dL (2.5-4.9); Potassium, Blood 3.2 mmol/L (3.5-5.5); Sodium, Blood 140 mmol/L (136-145)
--- NOTE | 2018-03-28 05:59 | NUR ---
SHIFT SUMMARY NOTE PT HAS REMAINED ALERT AND ORIENTED THROUGH THE NIGHT. PT HAS NOT SLEPT THROUGH THE NIGHT AT ALL. PT REMAINS ON BIPAP AT THIS TIME. AT APPROX 0335 PT VBG HAD A CRITICAL HIGH PH AT 7.53. RT CHANGED VENT SETTINGS TO AVAPS WITH [employer] TV OF 400. DR ROJO CALLED AND INFORMED OF PT'S PH AND VENT SETTING CHANGES. ORDER RECEIVED TO PERFORM A VBG REDRAW AT 1000. PT HAS REMAINED ON BIPAP THROUGHOUT THE NIGHT EXCEPT FOR BREAKS FOR WATER AND/OR SNACKS. PT HAS BEEN NEEDY THROUGH THE NIGHT AND HAS MADE VERY FREQUENT REQUESTS FOR WATER AND SNACKS. PT PLACED ON 7L O2 VIA OXYMIZER WHEN OFF OF THE BIPAP. PT ABLE TO MAINTAIN SPO2 IN THE 90'S WITH OXYMIZER. PT HAS DOBHOFF IN PLACE. PT CONTINUES TO RECEIVE TUBE FEEDING AT 65ML/HR. PT CONTINUES TO HAVE RECTAL TUBE AND SORIA CATH IN PLACE, BOTH PATENT AND DRAINING TO GRAVITY AT THIS TIME. PT STOOL IS BROWN AND LIQUIDY. PT URINE IS GRACE/YELLOW AND CLEAR. PT IS ABLE TO USE CALL LIGHT APPROPRIATELY AND IS ABLE TO MAKE NEEDS KNOWN. PT HAS BEEN ABLE OT ASSIST WITH TURNS MORE THROUGH THE NIGHT THAN ON PREVIOUS SHIFTS OF CARE. [facility]
[2018-03-28 09:19] LABS: Base Excess Venous 9.7 mmol/L; Bicarbonate Venous 31.8 mmol/L (24.0-30.0); PCO2 Venous 53.9 mmHg (38-42); PO2 Venous 42.5 mmHg (38-42); pH Blood Venous 7.41 (7.34-7.37)
--- NOTE | 2018-03-28 11:48 | NUR ---
SHORT AM SUMMARY... PT WAS QUITE RESTLESS ON BIPAP AND WANTED OFF BUT CHANGED ENCOURAGED TO REMAIN ON FOR DR TESTS PENDING. PT IRRITATED BUT WILLING TO TRY AND BE COMPLIANT. PT IS QUITE NEEDY WITH MULTIPLE REQUESTS AND "URGENT" PRIORITIES AND NEEDS. PT WAS EARLIER PLACE ON BED SILVA AFTER FLEXISEAL WAS REMOVED DUE TO THE PRESENTS OF SOFT NON-LIQUID STOOL. PT HAD LARGE FORMED BROWN BM. PT IS TOLERATING BEING OFF BIPAP AT 3L OXY AND THE REQUESTED TO RETURN TO BIPAP FOR SHORT TIME WHICH DR ASTORGA APPROVED. PT MILDLY SOB AND HR IS ELEVATED 10-15 POINTS AND WILL FOLLOW. APPROX 11:00 PT RETURNED TO BIPAP AND ONLY REQUESTING FOR SHORT TIME.
--- NOTE | 2018-03-28 16:39 | NUR ---
PT LEGS REDSGED AND BOTH POST CATH DSG OZZING BLOOD WITH DSG CHANGE. SITES WERE CLEANED AND SKIN PREPPED WIT BLUE TOP SKIN CARE THEN RE-WRAPPED. PT TOLERATED WITH MINIMAL PAIN ISSUES. PT HAS BEEN ON BIPAP 2 TIMES SENCE FIRST REMOVED THIS AM AND HAS BEEN SATING WELL ON 3L OXY W/O DISTRESS.
--- NOTE | 2018-03-28 17:05 | NUR ---
LATE NOTE... PT DOBBHOF TUBE D/C W/O DISTRESS.
--- NOTE | 2018-03-28 22:26 | NUR ---
ASSUMED CARE - TRANSFER TO PCU (FROM ICU) PATIENT ARRIVED IN BARIATRIC BED, ALERT AND ORIENTED TO SELF AND LOCATION. PATIENT IS MORBILDY OBESE AT APPROX 205 KGS. RESP E/U ON 3 LPM OXYMIZER. CONTINUOUS BIOX IN PLACE WITH BIPAP AT BEDSIDE FOR PRN USE. PATIENT IS REQUESTING DRINKS AND SNACKS T/O SHIFT THUS FAR. NO ACUTE DISTRESS NOTED, VSS. WILL CONTINUE TO MONTIOR.
[2018-03-29 04:33] LABS: BASOPHILS ABSOLUTE AUTO 0.04 K/mm3 (0.00-0.23); BASOPHILS PERCENT AUTO 0 % (0-2); EOSINOPHILS ABSOLUTE AUTO 0.67 K/mm3 (0.00-0.68); EOSINOPHILS PERCENT AUTO 7 % (0-6); Hemoglobin 11.3 g/dL (13.5-17.5); IMMATURE GRAN ABSOLUTE AUTO 0.05 K/mm3 (0.00-0.10); IMMATURE GRAN PERCENT AUTO 1 % (0-1); LYMPHOCYTES ABSOLUTE AUTO 1.58 K/mm3 (0.84-5.20); LYMPHOCYTES PERCENT AUTO 16 % (21-46); MONOCYTES ABSOLUTE AUTO 1.16 K/mm3 (0.16-1.47); MONOCYTES PERCENT AUTO 12 % (4-13); Mean Corpuscular HGB Conc 30.5 g/dL (31.5-36.5); Mean Corpuscular Volume 92 fL (80-100); Mean Platelet Volume 8.8 fL (9.1-12.4); NEUTROPHILS ABSOLUTE AUTO 6.23 K/mm3 (1.96-9.15); NEUTROPHILS PERCENT AUTO 64 % (41-73); Platelet Count 254 K/mm3 (150-400); RDW Coefficient Variation 14.3 % (11.7-14.2); RDW Standard Deviation 48.3 fL (35.1-46.3); Red Blood Cell Count 4.03 M/mm3 (4.30-5.90); White Blood Cell Count 9.73 K/mm3 (4.00-11.30)
[2018-03-29 04:53] LABS: Anion Gap 6 mmol/L (6-16); Blood Urea Nitrogen 12 mg/dL (8-24); Bun/Creatinine Ratio 16.8 (12.0-20.0); CO2, Blood 39 mmol/L (21-32); Calcium, Blood 7.8 mg/dL (8.5-10.1); Chloride, Blood 95 mmol/L (98-108); Creatinine, Blood 0.71 mg/dL (0.60-1.20); Glomerular Filtration Rate >60 (60-); Glucose, Blood 108 mg/dL (70-99); Magnesium, Blood 1.7 mg/dL (1.6-2.4); Phosphorus, Blood 4.2 mg/dL (2.5-4.9); Potassium, Blood 3.3 mmol/L (3.5-5.5); Sodium, Blood 140 mmol/L (136-145)
--- NOTE | 2018-03-29 05:33 | NUR ---
PCU NOC SHIFT SUMMARY PATIENT WAS AWAKE T/O SHIFT. DID NOT WEAR BIPAP. PATIENT ENCOURAGED TO REPOSITION BODY EVERY 2 HOURS AND VERBALIZED THAT HE WAS MOVING IN BED OFTEN EACH TIME HE WAS ASKED DURING ROUNDINGS. PATIENTS RESP E/U AT REST ON 3 LPM NC. PATIENT ALERT AND ORIENTED TO SELF, LOCATION AND SITUATION T/O SHIFT. VSS. NO ACUTE DISTRESS NOTED T/O SHIFT. WILL CONTINUE TO MONITOR AND REPORT TO DAYSHIFT RN. CALL LIGHT W/I REACH.
--- NOTE | 2018-03-29 16:44 | NUR ---
Pt is alert, oriented, sitting up in bed. Feet and legs are wrapped. Pain is 8/10, this is the lowest it gets, per pt. He has had chronic pain for years, treated with methadone and oxycodone. Reviewed code status. Discussed risk and benefit of interventions. Pt is ok with chest compressions and intubation. Discussed aftercare of intervention. He states that it is ok if ribs are fractured and other trauma is done. Pt states, "it's ok if I feel like a truck ran over me, I want to live!" Pt enjoys watching TV at home. He has a huge TV, and that's all he does. He changes the subject from his home activitis to the lack of dignity he is now feeling in the hospital. He hates the bedpan, and states that it is painful to use. He states that he has not stood for 'a long time,' but he is fairly sure that he would be able to. He c/o the staff "hovering" during PT. Allowed time for patient to vent his feelings. He appreciates the [employer] for now. He is watching basketball and is finished talking. Will remain available.
--- NOTE | 2018-03-29 18:41 | NUR ---
SHIFT SUMMARY PT RESTING IN BED THROUGHOUT THE DAY. UP TO RECLINER VIA LIFT WITH PHYSICAL THERAPY. PT TOLERATED FAIRLY WELL, BUT REQUESTING TO GO BACK TO BED SOON AFTER GETTING UP. ALERT AND ORIENTED X3. C/O 8/10 GENERALIZED PAIN, MEDICATED WITH PRN PAIN MEDS. LUNG SOUNDS CLEAR, DIMINISHED BASES. NSR RATE 79 PER TELE. 2+ PITTING EDEMA TO BLE. C/O WEAKNESS AND NUMBNESS TO BLE. DISCOLORATION NOTED TO BLE. WOUND DRSGS CDI. SORIA DRAINING CLEAR DARK YELLOW URINE. LEFT PICC LINE FLUSHING WELL. WILL CONTINUE TO MONITOR.
[2018-03-30 03:56] LABS: BASOPHILS ABSOLUTE AUTO 0.04 K/mm3 (0.00-0.23); BASOPHILS PERCENT AUTO 0 % (0-2); EOSINOPHILS ABSOLUTE AUTO 0.63 K/mm3 (0.00-0.68); EOSINOPHILS PERCENT AUTO 6 % (0-6); Hematocrit 39.7 % (37.0-53.0); Hemoglobin 11.7 g/dL (13.5-17.5); IMMATURE GRAN ABSOLUTE AUTO 0.05 K/mm3 (0.00-0.10); IMMATURE GRAN PERCENT AUTO 1 % (0-1); LYMPHOCYTES ABSOLUTE AUTO 1.45 K/mm3 (0.84-5.20); LYMPHOCYTES PERCENT AUTO 13 % (21-46); MONOCYTES ABSOLUTE AUTO 1.25 K/mm3 (0.16-1.47); MONOCYTES PERCENT AUTO 11 % (4-13); Mean Corpuscular HGB Conc 29.5 g/dL (31.5-36.5); Mean Corpuscular Volume 95 fL (80-100); Mean Platelet Volume 9.4 fL (9.1-12.4); NEUTROPHILS ABSOLUTE AUTO 7.63 K/mm3 (1.96-9.15); NEUTROPHILS PERCENT AUTO 69 % (41-73); Platelet Count 272 K/mm3 (150-400); RDW Coefficient Variation 14.5 % (11.7-14.2); RDW Standard Deviation 50.8 fL (35.1-46.3); Red Blood Cell Count 4.18 M/mm3 (4.30-5.90); White Blood Cell Count 11.05 K/mm3 (4.00-11.30)
[2018-03-30 04:10] LABS: Anion Gap 5 mmol/L (6-16); Blood Urea Nitrogen 17 mg/dL (8-24); Bun/Creatinine Ratio 19.5 (12.0-20.0); CO2, Blood 40 mmol/L (21-32); Chloride, Blood 96 mmol/L (98-108); Creatinine, Blood 0.87 mg/dL (0.60-1.20); Glomerular Filtration Rate >60 (60-); Glucose, Blood 121 mg/dL (70-99); Phosphorus, Blood 5.4 mg/dL (2.5-4.9); Potassium, Blood 4.1 mmol/L (3.5-5.5); Sodium, Blood 141 mmol/L (136-145)
--- NOTE | 2018-03-30 05:05 | NUR ---
SHIFT SUMMARY PT ALERT AND ORIENTED. VS STABLE. PT ON 3L VIA OXYMIZER MOST OF SHIFT WITH SATS >92% AND ON THE BIPAP WITH FIO2 OF 30% FOR ABOUT AN HOUR TOTAL. PT PULLS AT BIPAP AND REFUSES TO PUT IT ON AT TIMES. PT COMPLAINS OF 8/10 GENERALIZED PAIN AT BEGINNING OF SHIFT, BUT HAS NOT COMPLAINED OF PAIN SINCE. LS ARE CLEAR IN THE UPPER LOBES AND DIM IN THE BASES. PT HAS BEEN REPOSITIONED Q2H. PICC LINE DRESSING CHANGED THIS SHIFT. SORIA PATENT AND DRAINING CLEAR YELLOW URINE. CALL LIGHT IN REACH. WILL CONTINUE TO MONITOR AND REPORT TO ONCOMING RN.
--- NOTE | 2018-03-30 18:48 | NUR ---
NURSING SUMMARY ALERT AND ORIENTED, MILD CONFUSION UPON WAKING UP. LUNGS CLEAR/DIMINISHED AT THE BASES, BIPAP TO 3L O2 OXIMIZER, CONT PULSE OX. SR 80'S PRIOR TO DISCONTINUING TELEMETRY TODAY. HTN. ON ROUTINE ANTI-HYPTERTENSIVES. MORBIDLY OBESE, CARDIAC DIET, INCONTINENT OF STOOL. USING CEILING LIFT TO GET PT OUT OF BED TO THE BEDSIDE CHAIR TODAY, TOLERATED CHAIR FOR 4 HOURS. BILATERAL LOWER EXTREMITIES WITH MULTIPLE WOUNDS, DRESSING IN PLACE, CDI, DRESSING CHANGES DAILY, STILL NEEDS TO BE DONE TODAY. EXCORIATION ON COCCYX, APPLYING CREAM, NO BM TODAY. LALITO PICC SALINE LOCKED. PLAN TO SEEK PLACEMENT AT [facility] OR ANOTHER [facility].
[2018-03-31 03:32] LABS: BASOPHILS ABSOLUTE AUTO 0.05 K/mm3 (0.00-0.23); BASOPHILS PERCENT AUTO 1 % (0-2); EOSINOPHILS ABSOLUTE AUTO 0.62 K/mm3 (0.00-0.68); EOSINOPHILS PERCENT AUTO 6 % (0-6); Hematocrit 38.6 % (37.0-53.0); Hemoglobin 11.1 g/dL (13.5-17.5); IMMATURE GRAN ABSOLUTE AUTO 0.08 K/mm3 (0.00-0.10); IMMATURE GRAN PERCENT AUTO 1 % (0-1); LYMPHOCYTES ABSOLUTE AUTO 1.52 K/mm3 (0.84-5.20); LYMPHOCYTES PERCENT AUTO 15 % (21-46); MONOCYTES ABSOLUTE AUTO 1.44 K/mm3 (0.16-1.47); MONOCYTES PERCENT AUTO 14 % (4-13); Mean Corpuscular HGB Conc 28.8 g/dL (31.5-36.5); Mean Platelet Volume 9.2 fL (9.1-12.4); NEUTROPHILS ABSOLUTE AUTO 6.55 K/mm3 (1.96-9.15); NEUTROPHILS PERCENT AUTO 64 % (41-73); Platelet Count 273 K/mm3 (150-400); RDW Coefficient Variation 14.4 % (11.7-14.2); RDW Standard Deviation 51.9 fL (35.1-46.3); Red Blood Cell Count 3.96 M/mm3 (4.30-5.90); White Blood Cell Count 10.26 K/mm3 (4.00-11.30)
[2018-03-31 03:37] LABS: Mean Corpuscular Volume 98 fL (80-100)
[2018-03-31 03:55] LABS: Alanine Aminotransfer (ALT/SGP 49 U/L (12-78); Albumin, Blood 2.6 g/dL (3.4-5.0); Albumin/Globulin Ratio 0.6 (0.8-1.8); Alk Phos 71 U/L (50-136); Anion Gap 4 mmol/L (6-16); Aspartate Aminotrans (AST/SGOT 32 U/L (12-37); Bilirubin, Total 0.2 mg/dL (0.1-1.0); Blood Urea Nitrogen 25 mg/dL (8-24); Bun/Creatinine Ratio 20.5 (12.0-20.0); CO2, Blood 42 mmol/L (21-32); Calcium, Blood 8.2 mg/dL (8.5-10.1); Chloride, Blood 95 mmol/L (98-108); Creatinine, Blood 1.22 mg/dL (0.60-1.20); Globulin, Blood 4.5 g/dL (2.2-4.0); Glomerular Filtration Rate >60 (60-); Glucose, Blood 112 mg/dL (70-99); Potassium, Blood 4.4 mmol/L (3.5-5.5); Sodium, Blood 141 mmol/L (136-145); Total Protein, Blood 7.1 g/dL (6.4-8.2)
--- NOTE | 2018-03-31 05:50 | NUR ---
SHIFT SUMMARY PT ALERT TO SELF AND FOLLOWING DIRECTIONS. PT SLOW TO RESPOND AT TIMES. VS STABLE. O2 SATS >92% ON 4L VIA OXYMIZER. PT ON BIPAP FOR TOTAL OF 1 HOUR THIS SHIFT. WHEN PT PLACED ON BIPAP HE TENDS TO PULL AT IT AND TAKE IT OFF. PT HAS BEEN REPOSITIONED Q2H. SORIA IS PATENT AND DRAINING DARK YELLOW URINE. NO OTHER CHANGES SINCE INITIAL ASSESSMENT. CALL LIGHT IN REACH.
--- NOTE | 2018-03-31 09:11 | NUR ---
ASSUMED CARE OF PT APPROX. 0700. PT ZIGGY HAD BIPAP IN PLACE WITH OXYGEN SATS IN 90'S. BEDIN LOW POSITION, CALL LIGHT IN REACH. APPROX 0900. REPORT GIVEN TO NORBERTO DENNY WHO WILL BE ASSUMING CARE OF PT AT THIS TIME. NO S/SX OF ACUTE DISTRESS AT THIS TIME
--- NOTE | 2018-03-31 18:34 | NUR ---
SHIFT SUMMARY Assumed care of pt at 0800 from Nadia DENNY. Pt laying in bed at time of report, on oxymizer. Shift assessment completed. Pt did not answer when this RN asked him what the current year is or where he is. This RN stated the BiPap would be placed since pt appeared confused and was unable to answer questions. Pt stated he wasn't answering questions "because I don't want to". Pt tolerated BiPap for about two hours. Pt given break by RT. Pt placed in chair using ceiling lift. This RN placed pt back on BiPap around 1300, because pt was difficult to arouse. Pt opened eyes and provided verbal response to pain/pressure only. Pt given a break from BiPap around 1600. Around 1630, this RN noticied documented RR of 8. Pt placed on BiPap and had RR of 20. Update given to Dr Hudson. Orders given for stat ABG. RT Barbie notified. When RT in room to collect ABG, pt was awake and repeatedly stated "No" for having an ABG done. Pt educated that he is risking being intubated, pt states "been there, done that." Pt educated that he appears to be declining and ABG is important for plan of care. Pt continued to refuse. ABG not collected. Dr Hudson aware. Pt remains in recliner, wearing BiPAP at this time. Will continue to closely monitor until care handoff and bedside report with oncoming RN.
--- NOTE | 2018-04-01 01:34 | NUR ---
PATEINT REFUSING BIPAP FOR MAJORITY OF SHIFT, RT ABLE TO PLACE BIPAP ON AT APPROX 0130. PATIENT INTERMITTENTLY NONCOMPLIANT WITH ANY AND ALL TREATMENT.
--- NOTE | 2018-04-01 04:11 | NUR ---
SHIFT SUMMARY: PATIENT VSS, BIPAP ON FROM APPROX 0230 TO 0530, CALL LIGHT WIHTIN REACH, BED LOW AND LOCKED. PATIENT STATES INTERMITTENT TREMORS ARE CHRONIC.
--- NOTE | 2018-04-01 07:35 | NUR ---
BEGINNING OF SHIFT Assumed care at 0700. Report recieved from Paula DENNY. Pt laying in bed, requests back scratched. Pt cooperative with care, not providing any resistance or negative behavior. Pt remains confused. BiPap placed. Bed in lowest position. Call light in reach. Pt denies need at this time.
[2018-04-01] MEDS ORDERED: POTA10T PO (11:44)
[2018-04-01] MEDS ORDERED: AMLO10 PO (11:50)
--- NOTE | 2018-04-01 12:14 | NUR ---
DRESSING CHANGES BLE dressings changed. New mepitel one, supra absorbant mepliex, kerlex, maurice wrap, and nonadherent dressings placed. Yellow, red, purulent drainage noted on old dressings.
--- NOTE | 2018-04-01 12:55 | NUR ---
pt siting in room calling out doses off. enter room to speak with pt his lunch is sitting. He forgot it was there. Set him up for lunch. advised I will return. OT has not been able to assess pt. review with nursing and they will ask OT to return and assess pt abilities. Review of pt and hstory with case management and hospitalist. will see if APS has been involved in his care. Pt decisional process may be declininging due to his comorbid conditions. will see assessment and get history before discharge.
--- NOTE | 2018-04-01 16:31 | NUR ---
pt up in chair alert engaged in conversation pt states he is slightly better in his breathing. Pt very anxious and dominating conversation with past events of his life. Bringing pt back to his symptoms and needs pt has mild headache sleeps sitting up in chair due to dyspnea. he has not slept in a bed for two years. He gets short of breath at rest. pt states he has been going between constipation and diarrhea. good appetite. 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 pt state he has not been able to walk and has had a fall in shower about a month ago. Pt gets tearful and states he is dying and fears a suffocating . 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 pt states he was going to go to [employer] school and then signed up for [employer]. States he was raised by his aunt and uncle. He state great regret in that they abandoned him and were mad at him for turning away from his opportunity. Pt state he was very adventurous in the sixites and lots of drugs and alcohol. He relays he has chronic buzzing in his ears that has gotten worse. he lives in a hotel apartment on a small pension. 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 When they shut it down he went home and sat down and stopped doing everything. His best friend not to long ago and he state he is jealous. He denies idetion of self harm but wishes he would just go. He then changes the subject to finding new purpose in life and voluteering. Speaks non stop at times intense eye contact and brags about his adventures then cries. Nursing states he has been making comment of stress all day. Pt admits he smikes a hslf pack or more and is with drawing from nicotine and energy drinks. Nursing state he will refuse SNF for fear of loosing his housing. We had open conversatin about future and if he get sicker or more short of breath he is open to hospice so he doesn not suffer. He states he does not have family. Expressed some spiritual stress and loneliness. Reviewed our conversation with the chaplian and asked them to visit. Sent SS consult for assistnce in getting rehab and possible placement. requested his [facility] from the [facility].
--- NOTE | 2018-04-01 18:55 | NUR ---
DISCHARGE Pt discharged from unit at 1754 via [facility], accompanied by [facility]. Medications called to [facility] on [facility], which he states is his pharmacy of choice. Pt stated he did not have a calvo to his house. Ahmet contacted and stated she would meet paramedics at the pt's house to let him in. Corrospondence with Dr Hudson, Gauri from nephrology social worker, and Pretty from palliative care regarding patient's plan of care. Care team stated that discharge to home was appropriate for this patient. Agueda gibson OT spoke to this RN after working with the pt, stating that patient admitted to purposefully answering questions incorrectly because "I want you to leave me alone". She also stated that the pt admitted to pretending to fall asleep because he did not want to be bothered. Discharge information given to patient. Education provided. PICC line removed. All questions answered.
== END 2018-04-01 17:54 | disposition home or self-care (01) | DRG 602 ==
LOC: ER 16:21 → MEDS 16:22 → ICUE 03-25 16:12 → PCU 03-28 19:45
PROVIDERS: Emergency Medicine; Family Medicine; Internal Medicine; Internal Medicine Critical Care Medicine; ADMIT Internal Medicine
PROC: 5A09357 Assistance with Respiratory Ventilation, Less than 24 Consecutive Hours, Continuous Positive Airway Pressure (ICD-10-PCS; principal; 2018-03-26)
DX: L03.115 Cellulitis of right lower limb (principal); G92 Toxic encephalopathy; J96.21 Acute and chronic respiratory failure with hypoxia; I50.33 Acute on chronic diastolic (congestive) heart failure; Z68.44 Body mass index [BMI] 60.0-69.9, adult; E87.2 Acidosis; L97.809 Non-pressure chronic ulcer of other part of unspecified lower leg with unspecified severity; I89.0 Lymphedema, not elsewhere classified; G47.33 Obstructive sleep apnea (adult) (pediatric); Z86.711 Personal history of pulmonary embolism; K21.9 Gastro-esophageal reflux disease without esophagitis; Z87.891 Personal history of nicotine dependence; J44.9 Chronic obstructive pulmonary disease, unspecified; Z99.81 Dependence on supplemental oxygen; E66.01 Morbid (severe) obesity due to excess calories; Z74.09 Other reduced mobility; R60.1 Generalized edema; I87.2 Venous insufficiency (chronic) (peripheral); D72.829 Elevated white blood cell count, unspecified; I27.81 Cor pulmonale (chronic); Z86.718 Personal history of other venous thrombosis and embolism; G89.4 Chronic pain syndrome; I11.0 Hypertensive heart disease with heart failure; F41.9 Anxiety disorder, unspecified; R45.1 Restlessness and agitation; Z79.01 Long term (current) use of anticoagulants; Z79.891 Long term (current) use of opiate analgesic
CPT/HCPCS: 36415; 36569; 36600; 51702; 51703; 71045; 73630; 80048; 80053; 81001; 82140; 82803; 82947; 83735; 83880; 84100; 84132; 84145; 84443; 84484; 85025; 85027; 93005; 93010; 93306; 94640; 94660; 94762; 96372; 96374; 96375; 96376; 97161; 97166; 97530; 97535; 99285-25; C1751; G0378; G0515; J0360; J1120; J1170; J1650; J3475; J7060

== ENCOUNTER 2018-04-02 10:15 | Observation (INO) | payer MEDICARE, OTHER ==
[~2018-04-02] VITALS: Ht 165.1 cm; Wt 199.7 kg
[~2018-04-02 10:15] MED LIST changes: +AMLO10 PO
[2018-04-02 10:43] LABS: PCO2 Arterial 49.3 mmHg (35-45); PO2 Arterial 73.1 mmHg (80-100); pH Blood Arterial 7.45 (7.35-7.45)
[2018-04-02 10:56] LABS: BASOPHILS ABSOLUTE AUTO 0.05 K/mm3 (0.00-0.23); BASOPHILS PERCENT AUTO 0 % (0-2); EOSINOPHILS ABSOLUTE AUTO 0.01 K/mm3 (0.00-0.68); EOSINOPHILS PERCENT AUTO 0 % (0-6); Hematocrit 37.7 % (37.0-53.0); Hemoglobin 11.6 g/dL (13.5-17.5); IMMATURE GRAN PERCENT AUTO 1 % (0-1); LYMPHOCYTES ABSOLUTE AUTO 0.78 K/mm3 (0.84-5.20); LYMPHOCYTES PERCENT AUTO 5 % (21-46); MONOCYTES ABSOLUTE AUTO 1.45 K/mm3 (0.16-1.47); MONOCYTES PERCENT AUTO 9 % (4-13); Mean Corpuscular HGB 28.1 pg (26.0-34.0); Mean Corpuscular HGB Conc 30.8 g/dL (31.5-36.5); Mean Platelet Volume 9.5 fL (9.1-12.4); NEUTROPHILS ABSOLUTE AUTO 13.48 K/mm3 (1.96-9.15); Platelet Count 302 K/mm3 (150-400); RDW Coefficient Variation 14.1 % (11.7-14.2); RDW Standard Deviation 47.2 fL (35.1-46.3); Red Blood Cell Count 4.13 M/mm3 (4.30-5.90); White Blood Cell Count 15.87 K/mm3 (4.00-11.30)
[2018-04-02 10:58] LABS: Mean Corpuscular Volume 91 fL (80-100); NEUTROPHILS PERCENT AUTO 8 % (41-73)
[2018-04-02 11:16] LABS: Alanine Aminotransfer (ALT/SGP 117 U/L (12-78); Albumin/Globulin Ratio 0.6 (0.8-1.8); Alk Phos 93 U/L (50-136); Anion Gap 7 mmol/L (6-16); Aspartate Aminotrans (AST/SGOT 163 U/L (12-37); Bilirubin, Total 0.6 mg/dL (0.1-1.0); Blood Urea Nitrogen 36 mg/dL (8-24); Bun/Creatinine Ratio 37.2 (12.0-20.0); CO2, Blood 36 mmol/L (21-32); Calcium, Blood 8.6 mg/dL (8.5-10.1); Chloride, Blood 96 mmol/L (98-108); Creatinine, Blood 0.97 mg/dL (0.60-1.20); Globulin, Blood 5.1 g/dL (2.2-4.0); Glomerular Filtration Rate >60 (60-); Glucose, Blood 132 mg/dL (70-99); Potassium, Blood 3.1 mmol/L (3.5-5.5); Sodium, Blood 139 mmol/L (136-145); Total Protein, Blood 8.1 g/dL (6.4-8.2)
--- NOTE | 2018-04-02 16:16 | NUR ---
ADMIT NOTE RECEIVED REPORT FROM ALEX MORRISSEY RN IN ED. PER REPORTS PT FOUND DOWN AT HOME, WITH OXYGEN OFF. PT TO ROOM VIA GURNEY AT 1510 AND TRANSFERED TO BED VIA IN ROOM LIFT 6 PERSON ASSIST. PT SATURATED WITH URINE ON ADMISSION, FOCUSED BEDBATH ON LOWER POSTION AND MICAELA AREA COMPLETED. PT ORIENTED TO ROOM AND CALL LIGHT. BED IN LOW, BED ALARM ON, CALL LIGHT WITHIN REACH. PT RESTING ON BARIATRIC MATTRESS. PT A&OX3, UNSURE OF MONTH/DAY BUT KNOWS YEAR AND PRESIDENT AND STATES HE DOES NOT KNOW WHY HE IS HAS BEEN READMITTED. PT ON 4L O2 VIA OXYMIZER, PT STATES HE WEARS O2 AT HOME AT 3L. LS DIM T/O, BREATHING APPEARS EVEN AND UNLABORED. SOB WITH EXERTION AND MOVEMENT IN BED. PT DENIES PAIN AND N/V AT THIS TIME. PT BLE DARK BROWN, DISCOLORATIONS WITH OPEN WOUNDS TO PLANTAR SUFACE OF BILATERAL FEET AND BILATERAL CALFS, WOUNDS CLEANED PICTURES TAKEN AND DRESSED. COCCYX RED, BUT BLANCHABLE. OPEN WOUND ON LEFT ELBOW. ELEVATED BP NOTED, MEDICATED PER EMAR WITH SCHEDULED MEDICATIONS. POTASSIUM LEVELS LOW, MEDICATED PER EMAR AND ORDERS. HR ELEVATED. OTHER VSS. NO OTHER ACUTE CHANGES NOTED, WILL CONTINUE TO MONITOR UNTIL REPORT GIVEN TO ONCOMING RN.
--- NOTE | 2018-04-03 05:19 | NUR ---
SUMMARY: PT A/OX3 BUT CONFUSED TO DATE AND STATED "FRIENDS MADE HIM SEEM UNABLE TO CARE FOR SELF AND COVERED HIM W/FECES". HE WAS FOUND DOWN AT HOME BY CAREGIVERS NOT WEARING HIS HOME 02. HE'S VERY OBESE W/LIFT REQUIRED AND BEDBOUND AT THIS TIME. AIRBED IN PLACE FOR REPOSITIONING. ATTENDS CHANGED PRN FOR URINARY INCONTINENCE AND AIR CHUCKS IN PLACE D/T HEAVY VOIDS. BUTTOCKS IS SLIGHTLY PINK BUT W/O SBD SO CREAM APPLIED PRN. BLE DX'S W/JOHANNA WRAPS REMAIN C/D/I AND WERE PLACED BY DAY SHIFT SQL PROGRAMMER. SCHEDULED METHADONE RECIEVED FOR TOLERABLE CONTROL OF CHRONIC PAIN AND TRAZADONE AND MELATONIN WERE PROVIDED PRN PER PT REQUEST FOR SLEEP. PT WAS MOSTLY PLEASANT BUT CAN BE RUDE W/INAPPROPRIATE BEHAVIOR STATING "BABY COME ON" WHILE MASTERBATING. HE'S ALSO CONTANKEROUS AND UNCOOPERATIVE W/CARE AT TIMES. LS DIM T/O AND IS CURRENTLY ON 4L O2 VIA NC. PT REFUSES CONT BIOX AND CPAP. BX TX'S RX'D AND RECIEVED PRN PER RT D/T PT C/O SOB AT START OF SHIFT. NO ACUTE CHANGES, VSS/AFEBRILE. WILL MONITOR AND REPORT TO DAY RN.
[2018-04-03 05:25] LABS: Anion Gap 6 mmol/L (6-16); Blood Urea Nitrogen 31 mg/dL (8-24); Bun/Creatinine Ratio 36.3 (12.0-20.0); CO2, Blood 35 mmol/L (21-32); Calcium, Blood 8.4 mg/dL (8.5-10.1); Chloride, Blood 98 mmol/L (98-108); Creatinine, Blood 0.85 mg/dL (0.60-1.20); Glomerular Filtration Rate >60 (60-); Glucose, Blood 115 mg/dL (70-99); Potassium, Blood 3.4 mmol/L (3.5-5.5); Sodium, Blood 139 mmol/L (136-145)
--- NOTE | 2018-04-03 18:27 | NUR ---
Multiple visits today with patient. Review of his symptoms and stressors and needs for future plan of care. listened in as pt worked with PT and nursing. Pt aggitated but cooperative. Expresses great stress during PT. Pt was anxious and upset after therapy stating he was scared due to shortness of breath. Review of his beahviours with therapist and strategies for cooperation. Pt very fatigued after PT so brief therputic visit to help nursing. placed more pillows under arms and reviewed positioning to optimize ventilation. Returned to visit later pt was amendable to visit. Advised pt before interaction that it may be a long conversation. reassured pt plan was to help with success and to keep him out of hospital. Also advised pt it would be a comprehensive conversation and blunt. Advised pt curent behaviours need to be discussed. Pt was open to plan. Review of pt past history. 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 He moved here to retire. pt expresses great grief over his relationship with his girlfirend. He let her move in about 7 years ago to help her out and fell in love with her. He is facing his decline and losses in his life and that she is there for a home and money. He is considering asking her to leave and having grief. pt has a sister that he is not very involved . his friend owns [employer] in [place] [phone]. he is his is best friend and has helped him many times. Pt had questions about his pronosis and his helath. We focused on his function and ability to ventilate. We reviewed his ADl's and safety. He states his physician took away his drivers [employer]. He is very angry and struggling to cope. He understands his part in his sickness and just sits in bed and mulls over his failures all day. He is depressed and knows he is awful to people. He states he had to be very hard in his job in managing his workers. He states it made him a jerk. He is upset that he has not been able to to manage his affairs becasue he has not been home. His girlfriend does not drive and is not reliable to help him. He is fixated on paying his taxes and bills and manging his life. He fears loosing his house or something being shut off. He understand he needs that income for investment for his care. We reviewed that the local SNF facilities had issues with him. He states he felt good at [facility] but ran out of days . He does not want to go back to [facility]. We reviewed his innapropriate obsecene behaiours. He acknowledges some of them. When I reviewed the nurses notes he states he did not remeber some of them. He was distraught because his girlfiend has relayed some starange and terrible behaviours also. He states he know he chants and repeats when he is anxious and short of breath. He states it is usually lines from old songs and he drifts off. He states it sooths him when he feels like he is struggling to pull air in. He also sartles easy and she staes he yells out. He relays that she states it is happening more and more and he is sleepier and harder to arouse. Advised pt that he has to have a new plan and will attempt to help his with acceptance of his reality and needs. Advised that his anger and behaiours will not be tolerated. Reassured him that we will help him with his anger and fear. presented holistic care and viewing his rehab as helping his mind, body and spirit not focusing on his sickness and obesity. Reviewed some diversion strategies. Reviewed Safety and ADL's did not review prognosis it was to much for him. Suggested rehab in [facility] since its near [facility] so his firend could visit. Reenforced these are all suggestions and he needs to think about them and make a commited dicision and stop blaming. He took it pretty well. returned to see him and help him with phone numbers and contacts since he does not have a phone. Asked if our conversation caused more stress or some relief. Admitted he felt relef and that he feels safe here. returned to check on him a few time and charted outside the room for ahwile he does startle and yell our and repeats over and over to himself. He also is woried about his antidepressants he feels they are not working and having more side effects and stopped them suddenly at home. State she does not like taking them. Pt has psyc consult but DC'd before complete. he may benefit form eval for medication managment. Pt did not display confussion but some struggles with holding his thoughts when expressing himself. will follow up with SS, PT/OT and phsycians for comprehensive plan and supports PT reccomendations. will have chaplian see pt for grief.
[2018-04-04 05:11] LABS: BASOPHILS ABSOLUTE AUTO 0.05 K/mm3 (0.00-0.23); BASOPHILS PERCENT AUTO 0 % (0-2); EOSINOPHILS ABSOLUTE AUTO 0.41 K/mm3 (0.00-0.68); EOSINOPHILS PERCENT AUTO 3 % (0-6); Hematocrit 40.4 % (37.0-53.0); Hemoglobin 11.8 g/dL (13.5-17.5); IMMATURE GRAN ABSOLUTE AUTO 0.13 K/mm3 (0.00-0.10); IMMATURE GRAN PERCENT AUTO 1 % (0-1); LYMPHOCYTES ABSOLUTE AUTO 1.24 K/mm3 (0.84-5.20); LYMPHOCYTES PERCENT AUTO 10 % (21-46); MONOCYTES ABSOLUTE AUTO 1.52 K/mm3 (0.16-1.47); MONOCYTES PERCENT AUTO 12 % (4-13); Mean Corpuscular HGB 27.5 pg (26.0-34.0); Mean Corpuscular HGB Conc 29.2 g/dL (31.5-36.5); Mean Platelet Volume 9.8 fL (9.1-12.4); NEUTROPHILS ABSOLUTE AUTO 9.73 K/mm3 (1.96-9.15); NEUTROPHILS PERCENT AUTO 74 % (41-73); Platelet Count 312 K/mm3 (150-400); RDW Standard Deviation 51.5 fL (35.1-46.3); Red Blood Cell Count 4.29 M/mm3 (4.30-5.90); White Blood Cell Count 13.08 K/mm3 (4.00-11.30)
[2018-04-04 05:12] LABS: Mean Corpuscular Volume 94 fL (80-100)
[2018-04-04 05:32] LABS: Albumin, Blood 2.7 g/dL (3.4-5.0); Anion Gap 5 mmol/L (6-16); Blood Urea Nitrogen 38 mg/dL (8-24); Bun/Creatinine Ratio 30.4 (12.0-20.0); CO2, Blood 36 mmol/L (21-32); Calcium, Blood 8.4 mg/dL (8.5-10.1); Chloride, Blood 99 mmol/L (98-108); Creatinine, Blood 1.25 mg/dL (0.60-1.20); Glomerular Filtration Rate >60 (60-); Glucose, Blood 120 mg/dL (70-99); Magnesium, Blood 2.3 mg/dL (1.6-2.4); Phosphorus, Blood 5.4 mg/dL (2.5-4.9); Potassium, Blood 3.7 mmol/L (3.5-5.5); Sodium, Blood 140 mmol/L (136-145)
--- NOTE | 2018-04-04 06:06 | NUR ---
SUMMARY: A/OX3, MOSTLY PLEASANT AND COOPERATIVE THIS SHIFT BUT OCCASIONALLY IS RESISTANT TO CARE. HE CALLED APPROPRIATELY MOSTLY BUT ALSO YELLED INTO HALLS. TURN SCHEDULE MAINTAINED VIA USE OF AIRBED. PT ASSISTED W/URINAL AND HAD ATTENDS CHANGED FOR INCONTINENCE. BLE DX'S W/COBAN TO SORES ON LEGS AND FEET REMAIN C/D/I AND WERE INITIALLY APPLIED BY GRACE, BIT SHARPENER ON 04/02/18. SCHEDULED METHADONE RECIEVED FOR TOLERABLE CONTROL OF "ALLOVER" PAIN AND PT REQUESTED TRAZADONE AND MELATONIN AT HS FOR ANXIETY AND SLEEP. PT RESTED COMFORTABLY SINCE. HE PERFORMED OWN MOUTH CARE ONCE SET UP AND REMAIN ON 4L O2 W/RESPS E/U. PT REFUSES CONT BIOX AND CPAP. NO ACUTE CHANGES, VSS/AFEBRILE. WILL MONITOR AND REPORT TO DAY RN. NO INAPPROPRIATE BEHAVIOR TONIGHT.
--- NOTE | 2018-04-04 19:19 | NUR ---
NO ACUTE CHANGES NOTED THIS SHIFT. PT CALLS FREQUENTLY, DID NOT WANT TO GET OOB TODAY AND DID NOT WANT TO BATHE. WILL CONTINUE TO MONITOR AND REPORT TO ONCOMING RN.
[2018-04-05 05:00] LABS: BASOPHILS ABSOLUTE AUTO 0.04 K/mm3 (0.00-0.23); BASOPHILS PERCENT AUTO 0 % (0-2); EOSINOPHILS ABSOLUTE AUTO 0.47 K/mm3 (0.00-0.68); EOSINOPHILS PERCENT AUTO 4 % (0-6); Hematocrit 37.9 % (37.0-53.0); Hemoglobin 11.4 g/dL (13.5-17.5); IMMATURE GRAN ABSOLUTE AUTO 0.11 K/mm3 (0.00-0.10); IMMATURE GRAN PERCENT AUTO 1 % (0-1); LYMPHOCYTES ABSOLUTE AUTO 1.54 K/mm3 (0.84-5.20); LYMPHOCYTES PERCENT AUTO 14 % (21-46); MONOCYTES PERCENT AUTO 10 % (4-13); Mean Corpuscular HGB Conc 30.1 g/dL (31.5-36.5); Mean Corpuscular Volume 93 fL (80-100); Mean Platelet Volume 9.4 fL (9.1-12.4); NEUTROPHILS ABSOLUTE AUTO 7.45 K/mm3 (1.96-9.15); NEUTROPHILS PERCENT AUTO 70 % (41-73); Platelet Count 262 K/mm3 (150-400); RDW Coefficient Variation 14.8 % (11.7-14.2); RDW Standard Deviation 50.7 fL (35.1-46.3); Red Blood Cell Count 4.07 M/mm3 (4.30-5.90); White Blood Cell Count 10.71 K/mm3 (4.00-11.30)
--- NOTE | 2018-04-05 05:44 | NUR ---
VSS, AFEBRILE, A/O, DELAYED RESPONSES AT TIMES, FORGETFUL, INCONT, BARIATRIC BED, 20G L HAND, REFUSING BIPAP, REQUESTS NARCOTIC PAIN MEDS BUT NO MORE THAN HIS HOME DOSE OF METHADONE HAS BEEN ORDRED. CHRONIC LYMPHEDEMA, OPEN AREAS ON BILAT LE ARE WRAPPED, ANASARCA, CAN BE NEEDY AT TIMES, MIGHT NEED MORE THAN HOME HEALTH FOR D/C, CALLS OUT LOUD NOISES AT TIMES
[2018-04-05 05:48] LABS: Albumin, Blood 2.5 g/dL (3.4-5.0); Anion Gap 7 mmol/L (6-16); Blood Urea Nitrogen 33 mg/dL (8-24); Bun/Creatinine Ratio 39.2 (12.0-20.0); CO2, Blood 32 mmol/L (21-32); Calcium, Blood 8.1 mg/dL (8.5-10.1); Chloride, Blood 101 mmol/L (98-108); Creatinine, Blood 0.84 mg/dL (0.60-1.20); Glomerular Filtration Rate >60 (60-); Glucose, Blood 106 mg/dL (70-99); Phosphorus, Blood 2.9 mg/dL (2.5-4.9); Potassium, Blood 4.4 mmol/L (3.5-5.5); Sodium, Blood 140 mmol/L (136-145)
--- NOTE | 2018-04-05 15:00 | NUR ---
OVERHEAD LIFT USED TO ASSIST PT UP TO BEDSIDE RECLINER. CALL ROBERTS IN REACH, WILL MONITOR.
--- NOTE | 2018-04-05 17:00 | NUR ---
PT RETURNED TO BED VIA OVERHEAD LIFT. PT COMFORTABLE IN BED AND CALL ROBERTS IN REACH
--- NOTE | 2018-04-05 17:56 | NUR ---
PT FALL PT STARTED YELLING OUT FOR HELP, JOSIAH GUERRA FOOD STAND MANAGER FOUND PT KNEELING ON FLOOR LEANING ON BEDSIDE RECLINER. PT WAS THEN TURNED TO HIS BACK ONTO LIFT SLING AND LIFTED BACK TO BED. PT DENIES HITTING HIS HEAD OR ANY INJURIES, VITAL SIGNS WNL. DR VAUGHN CALLED AND INFORMED. NO NEW ORDERS RECEIVED. WILL CONTINUE TO MONITOR
--- NOTE | 2018-04-05 19:41 | NUR ---
PT REMAINED IN BED MOST OF THE DAY, UP TO CHAIR FOR A COUPLE OF HOURS THIS AFTERNOON. PHYSICAL THERAPY ATTEMPTED TO WORK WITH PT BUT HE DECLINED. PT FELL TO FLOOR WHEN ATTEMPTING TO GET OUT OF BED BY HIMSELF THIS EVENING, DENIES INJURY. RESTING IN BED AT THIS TIME. WILL CONTINUE TO MONITOR AND REPORT TO ONCOMING RN.
--- NOTE | 2018-04-06 07:25 | NUR ---
pt continues confused and hollers out frequently. attempted to climb out of bed again fall precautions in place with pressure alarm applied to air bed. irritable and confused. medicated with routine pain meds methadone 20 mg oral and tylenol 650 mg at hs with helpful effect. Dressing to lower extremity wounds intact. new rt elbow foam dressing applied. frequently removes 4 l oxygen per nc. replaced when cued. incontinent of urine able to use call [place].
--- NOTE | 2018-04-06 17:13 | NUR ---
pt POLST incomplete hadlaura ross see pt for assitance with pt spiritual stress and decisions. pt wants full code will complete new polst with him.
--- NOTE | 2018-04-06 17:45 | NUR ---
PT IS ON 4L O2 VIA NC. PT HAS A CPAP BUT HAS BEEN REPORTED TO REFUSE IT. PT IS INCONTINENT OF BOWELS AND BLADDER. HE CAN USE A URINAL IN BED WITH ASSISTANCE. PT RECIEVED A BED BATH TODAY AND DRESSING CHANGES ON HIS WOUNDS. HE HAS A HX OF ESBL IN HIS URINE, THEREFORE HE IS ON CONTACT PRECAUTIONS. PT HAS A 20G IV IN HIS LEFT HAND, SALINE LOCKED. PT COMPLAINS OF PAIN IN HIS FEET. PT WAS REFUSED BY [facility] TODAY. WILL CONTINUE TO MONITOR.
--- NOTE | 2018-04-06 17:57 | NUR ---
Renaldo has a gruff demeanor, but was soft-spoken with me. He admits he is fearful at times. He does not want to and believes with a little therapy, he will be able to regain some strength and independance. Renaldo tells me that his brother in [place] offered him a place in his home. Renaldo is happy about this offer. He spoke to me at length about his fear of not being able to breathe and some of the nightmares he has been having. He responded well to theraputic listening and light on awake counselor. We completed a POLST reflecting his desire to remain a Full Code with all medical interventions to sustain life. POLST is awaiting physician's signature. I will remain available.
--- NOTE | 2018-04-07 06:22 | NUR ---
SHIFT SUMMARY PT SLEPT WELL DURING THE NIGHT, TALKS IN SLEEP FREQUENTLY. INCONTINENT OF URINE X1. NO ACUTE CHANGES NOTED. WILL CONTINUE TO MONITOR.
--- NOTE | 2018-04-07 16:55 | NUR ---
PT INCONTINENT OF BLADDER TODAY. PT CAN USE THE URINAL WITH ASSISTANCE IF HE CATCHES IT IN TIME. PT COOPERATIVE WITH CARE TODAY. HE PARTICIPATED IN PT AND SAT UP IN A WHEELCHAIR FOR AN HOUR. OVERHEAD LIFT USED TO TRANSFER PT. NO ACUTE CHANGES TODAY. WILL CONTINUE TO MONITOR PT.
--- NOTE | 2018-04-08 05:04 | NUR ---
SHIFT SUMMARY PT YOUTH LEADER LIGHT FREQUENTLY DURING THE NIGHT. NO ACUTE CHANGES NOTED DURING THE NIGHT. WILL CONTINUE TO MONITOR.
--- NOTE | 2018-04-08 18:33 | NUR ---
PATIENT A/OX4, UNCOOPERATIVE AND DISRESPECTFUL TO STAFF AT TIMES THIS SHIFT. DRESSINGS TO BLE CHANGED THIS AM. PATIENT VOIDING IN BED INSTEAD OF CALLING TO LET US HELP HIM USE THE URINAL. UP TO CHAIR WITH LIFT, REFUSED TO STAY UP FOR DINNER. LARGE BM TODAY. PAIN CONTROLLED WITH SCHEDULED MEDS. ABLE TO AMBULATE WITH FWW AND 1-2 ASSIST. PLAN IS FOR PATIENT TO GO HOME ONCE CAREGIVERS ARE ESTABLISHED.
--- NOTE | 2018-04-09 01:13 | NUR ---
PATIENT REQUESTED SLEEP AID FOR INSOMNIA. TRAZADONE 50 MG PO GIVEN PER EMAR. PATIENT SLEEPING AT THIS TIME. CALL LIGHT IN REACH. WILL CONTINUE TO MONITOR.
--- NOTE | 2018-04-09 03:57 | NUR ---
SHIFT SUMMARY PATIENT HAD NO ACUTE CHANGES OBSERVED DURING THE SHIFT. AXO X4 AND MORBID OBESE. USING LIFT FROM BED TO W/C. PATIENT EDUCATED ON THE USE OF THE CALL LIGHT AFTER REPEATEDLY PUSHING THE CALL LIGHT BUTTON. SCHEDULE PAIN MEDICATION PER EMAR FOR BLE PAIN. NO IV ACCESS. ON 4L O2 N/C BASELINE. DENIES PAIN, SOB, AND N/V. VSS/AFEBRILE. REPORTED INSOMNIA AND TRAZADONE 50 MG PO GIVEN PER EMAR. PATIENT ABLE TO SLEEP. CALL LIGHT IN REACH. BED IN LOWEST POSITION. WILL CONTINUE TO MONITOR UNTIL DAY SHIFT NURSE ASSUMES CARE.
--- NOTE | 2018-04-09 18:45 | NUR ---
SHIFT SUMMARY MORBIDLY OBESE. LIFT PATIENT. ABLE TO TURN FOR ATTENDS CHANGE. INCONTINENT. C/O PAIN TO ABDOMEN ORDERS RECEIVED FOR HOME PAIN MEDICATION PLACED. COOPERATIVE WITH CARE. A AND OX3.
--- NOTE | 2018-04-09 21:50 | NUR ---
PATIENT VERBAL SHOUTING OUT RANDOM WORDS INCLUDING OH BABY. PATIENT NOT FOLLOWING DIRECTIONS ON THE USE OF THE CALL LIGHT SYSTEM. STILL EXCESSIVELY PUSHING THE CALL LIGHT WHEN GIVEN INFORMATION WHEN STAFF WILL BE IN.
--- NOTE | 2018-04-10 03:56 | NUR ---
SHIFT SUMMARY PATIENT HAD NO ACUTE CHANGES OBSERVED THIS SHIFT. PATIENT ABLE TO HAVE BM USING BED SILVA. DRESSINGS CHANGED ON BLE. REPORTS BLE PAIN AND SCHEDULED PAIN MEDICATION GIVEN PER EMAR. NO IV ACCESS. ON 4L O2 NC. DENIES SOB AND N/V. VSS/AFEBRILE. BED FAST/LIFT ROOM. CALL LIGHT IN REACH. BED IN LOWEST POSITION. WILL CONTINUE TO MONITOR UNTIL DAY SHIFT NURSE ASSUMES CARE.
--- NOTE | 2018-04-10 18:34 | NUR ---
NO CHANGES TO PATIENTS CONDITION. WAS A LESS ABRASIVE WITH STAFF. CALL LIGHT WITH IN REACH. FED WELL.
--- NOTE | 2018-04-11 03:20 | NUR ---
SHIFT SUMMARY PATIENT HAD NO ACUTE CHANGES OBSERVED. AXO X4 AND BEDFAST. PATIENT REPORTS HE DRIVES AT HOME. ON 4L O2 NC. PATIENT MORE COOPERATIVE WITH CARE THIS SHIFT. HE REPORTED BLE PAIN AND ANXIETY. SCHEDULE PAIN MEDICATION GIVEN AND SEROQUEL PER EMAR. NO IV ACCESS. VSS/AFEBRILE. LIFT ROOM, MORBID OBESE. PATIENT REPORTED INSOMNIA AND TRAZODONE GIVEN PER EMAR. PATIENT ABLE TO SLEEP. DENIES SOB AND N/V. CALL LIGHT IN REACH. BED IN LOWEST POSITION. WILL CONTINUE TO MONITOR UNTIL DAY SHIFT NURSE ASSUMES CARE.
--- NOTE | 2018-04-11 13:25 | NUR ---
HE HAS BEEN COOPERATIVE WITH CARE THIS MORNING. HE ALWAYS HAS LOTS OF REQUESTS FOR THINGS TO BE BROUGHT OR MOVED OR OPENED, ETC. HE HAD BEEN INCONTINENT, THEN HE USED THE URINAL WITH HELP TO VOID. HE NAPPED AFTER HIS BREAKFAST AND MORNING MEDS. ATE LUNCH. NO NEW COMPLAINTS.
--- NOTE | 2018-04-11 16:20 | NUR ---
HE HAS WATCHED CARTOONS, NAPPED AND LOOKED AT SOME PAPERWORK IN THE ROOM TODAY. HE REMAINS ON AN AIR MATTRESS IN A BARIATRIC BED. NO CHANGES.
--- NOTE | 2018-04-12 06:34 | NUR ---
SHIFT SUMMARY: NO ACUTE CHANGES THIS SHIFT. PT A&O, USES CALL LIGHT APPROPRIATELY, ABLE TO MAKE NEEDS KNOWN. C/O GENERALIZED PAIN; ADMINISTERED SCHEDULED METHADONE WHICH PROVIDES RELIEF. ON HOME O2 OF 4L VIA NC. BED ALARM ON AND CALL LIGHT REMAINS IN REACH. WILL CONT TO MONITOR AND PROVIDE CARE UNTIL PRESUMED BY ONCOMING RN.
--- NOTE | 2018-04-12 15:14 | NUR ---
PATIENT DISCHARGE THE PATIENT WAS DISCHARGED HOMR WITH HOME HEALTH, AFTER DISCHARGE INSTRUCTIONS WERE GIVEN TO THE PATIENT. THE PATIENT WAS INSTRUCTED TO FOLLOW UP WITH HIS PCP WITH 3 DAYS. THE PATIENT LEFRT THE HOSPITAL VIA STRESHER AND AMBULANCE TO HIS HOME. THE PATIENT WAS NOT HAPPY TO BE DISCHARGE.
== END 2018-04-12 15:11 | disposition home or self-care (01) ==
LOC: ER 10:15 → MEDS 10:16 → EDPENDDIS 04-12 11:54 → ENPENDDIS 04-12 11:54 → MEDS 04-12 15:11
PROVIDERS: Emergency Medicine; Internal Medicine; ADMIT Internal Medicine
DX: R29.6 Repeated falls (principal); E66.01 Morbid (severe) obesity due to excess calories; G47.33 Obstructive sleep apnea (adult) (pediatric); S81.802A Unspecified open wound, left lower leg, initial encounter; S81.801A Unspecified open wound, right lower leg, initial encounter; D72.829 Elevated white blood cell count, unspecified; I89.0 Lymphedema, not elsewhere classified; E87.6 Hypokalemia; I87.8 Other specified disorders of veins; I50.30 Unspecified diastolic (congestive) heart failure; I11.0 Hypertensive heart disease with heart failure; J44.9 Chronic obstructive pulmonary disease, unspecified; K21.9 Gastro-esophageal reflux disease without esophagitis; Z87.891 Personal history of nicotine dependence; Z79.1 Long term (current) use of non-steroidal anti-inflammatories (NSAID); Z79.899 Other long term (current) drug therapy; Z99.81 Dependence on supplemental oxygen; Z68.45 Body mass index [BMI] 70 or greater, adult
CPT/HCPCS: 36415; 36600; 71045; 80048; 80053; 80069; 82803; 82947; 83735; 85025; 93005; 93010; 94640; 94760; 97110; 97162; 97530; 99285-25; G0378

== ENCOUNTER 2018-04-17 11:37 | Emergency (ER) | payer MEDICARE, OTHER ==
[~2018-04-17] VITALS: Ht 172.7 cm; Wt 199.6 kg
[2018-04-17 13:24] LABS: BASOPHILS ABSOLUTE AUTO 0.04 K/mm3 (0.00-0.23); BASOPHILS PERCENT AUTO 0 % (0-2); EOSINOPHILS ABSOLUTE AUTO 0.22 K/mm3 (0.00-0.68); EOSINOPHILS PERCENT AUTO 2 % (0-6); Hematocrit 36.6 % (37.0-53.0); Hemoglobin 11.3 g/dL (13.5-17.5); IMMATURE GRAN ABSOLUTE AUTO 0.04 K/mm3 (0.00-0.10); IMMATURE GRAN PERCENT AUTO 0 % (0-1); LYMPHOCYTES ABSOLUTE AUTO 0.92 K/mm3 (0.84-5.20); LYMPHOCYTES PERCENT AUTO 10 % (21-46); MONOCYTES ABSOLUTE AUTO 0.68 K/mm3 (0.16-1.47); MONOCYTES PERCENT AUTO 7 % (4-13); Mean Corpuscular HGB 28.3 pg (26.0-34.0); Mean Corpuscular HGB Conc 30.9 g/dL (31.5-36.5); Mean Corpuscular Volume 92 fL (80-100); Mean Platelet Volume 10.1 fL (9.1-12.4); NEUTROPHILS ABSOLUTE AUTO 7.69 K/mm3 (1.96-9.15); NEUTROPHILS PERCENT AUTO 80 % (41-73); Platelet Count 240 K/mm3 (150-400); RDW Coefficient Variation 15.7 % (11.7-14.2); RDW Standard Deviation 51.8 fL (35.1-46.3); Red Blood Cell Count 3.99 M/mm3 (4.30-5.90); White Blood Cell Count 9.59 K/mm3 (4.00-11.30)
[2018-04-17 13:38] LABS: Alanine Aminotransfer (ALT/SGP 30 U/L (12-78); Albumin, Blood 2.8 g/dL (3.4-5.0); Albumin/Globulin Ratio 0.6 (0.8-1.8); Alk Phos 88 U/L (50-136); Anion Gap 4 mmol/L (6-16); Aspartate Aminotrans (AST/SGOT 23 U/L (12-37); Bilirubin, Total 0.3 mg/dL (0.1-1.0); Blood Urea Nitrogen 16 mg/dL (8-24); Bun/Creatinine Ratio 25.2 (12.0-20.0); CO2, Blood 33 mmol/L (21-32); Calcium, Blood 8.2 mg/dL (8.5-10.1); Chloride, Blood 102 mmol/L (98-108); Creatinine, Blood 0.64 mg/dL (0.60-1.20); Globulin, Blood 4.6 g/dL (2.2-4.0); Glomerular Filtration Rate >60 (60-); Glucose, Blood 101 mg/dL (70-99); Potassium, Blood 4.3 mmol/L (3.5-5.5); Sodium, Blood 139 mmol/L (136-145); Total Protein, Blood 7.4 g/dL (6.4-8.2)
[2018-04-18] MEDS ORDERED: LIDO5TO TOP (09:01)
== END 2018-04-17 15:55 | disposition home or self-care (01) ==
LOC: ER 11:37
PROVIDERS: Internal Medicine
DX: R06.00 Dyspnea, unspecified (principal); I10 Essential (primary) hypertension; J44.9 Chronic obstructive pulmonary disease, unspecified; Z79.899 Other long term (current) drug therapy; Z99.81 Dependence on supplemental oxygen; Z87.891 Personal history of nicotine dependence
CPT/HCPCS: 36415; 71045; 80053; 83880; 85025; 99284-25

== ENCOUNTER 2018-04-18 08:11 | Emergency (ER) | payer MEDICARE, OTHER ==
[~2018-04-18] VITALS: Ht 172.7 cm; Wt 191.4 kg
[2018-04-18] MEDS ORDERED: LIDO5TO TOP (09:01)
== END 2018-04-18 10:41 | disposition home or self-care (01) ==
LOC: ER 08:11
DX: N48.89 Other specified disorders of penis (principal); R06.02 Shortness of breath; Z79.899 Other long term (current) drug therapy; I10 Essential (primary) hypertension; J44.9 Chronic obstructive pulmonary disease, unspecified; Z87.891 Personal history of nicotine dependence
CPT/HCPCS: 99283

== ENCOUNTER → 2018-05-11 | Outpatient (CLI) | payer MEDICARE, OTHER ==
[~2018-05-11] MED LIST changes: +LIDO5TO TOP
[2018-05-12 15:52] LABS: Hematocrit 44.4 % (37.0-53.0); Hemoglobin 13.1 g/dL (13.5-17.5); Mean Corpuscular HGB 28.7 pg (26.0-34.0); Mean Corpuscular HGB Conc 29.5 g/dL (31.5-36.5); Mean Corpuscular Volume 97 fL (80-100); Mean Platelet Volume 10.3 fL (9.1-12.4); Platelet Count 274 K/mm3 (150-400); RDW Coefficient Variation 15.5 % (11.7-14.2); RDW Standard Deviation 55.7 fL (35.1-46.3); Red Blood Cell Count 4.56 M/mm3 (4.30-5.90); White Blood Cell Count 12.56 K/mm3 (4.00-11.30)
== END ==
LOC: LAB 14:57 → LAB SHORT 14:57
PROVIDERS: Family Medicine
DX: J44.9 Chronic obstructive pulmonary disease, unspecified (principal); J96.01 Acute respiratory failure with hypoxia; I50.32 Chronic diastolic (congestive) heart failure; R73.9 Hyperglycemia, unspecified
CPT/HCPCS: 83036; 85027

== ENCOUNTER → 2018-05-13 | Outpatient (CLI) | payer MEDICARE, OTHER ==
[2018-05-13 18:24] LABS: Source, Urine Voided
[2018-05-13 20:32] LABS: Red Blood Cells, Urine TNTC /hpf (0-2); Squamous Epithelial Cells Not Seen /hpf (Few); White Blood Cells, Urine 0-2 /hpf (0-5)
[2018-05-13 20:33] LABS: Bacteria Rare /hpf
== END | disposition home or self-care (01) ==
LOC: LAB SHORT 13:00 → LAB 13:00
PROVIDERS: Family Medicine
DX: R19.5 Other fecal abnormalities (principal); R39.12 Poor urinary stream
CPT/HCPCS: 81015; 83631; 87015; 87045; 87046; 87205; 87899

== ENCOUNTER → 2018-06-10 | Outpatient (CLI) | payer MEDICARE, OTHER ==
[~2018-06-10] MED LIST changes: +Ashwagandha PO; +HYDHCL25 PO; +METH5 PO; +Oxazepam30 MG PO; +PRED10 PO
[2018-06-10 17:54] LABS: Hematocrit 42.2 % (37.0-53.0); Hemoglobin 12.9 g/dL (13.5-17.5); Mean Corpuscular HGB 28.9 pg (26.0-34.0); Mean Corpuscular HGB Conc 30.6 g/dL (31.5-36.5); Mean Corpuscular Volume 95 fL (80-100); Mean Platelet Volume 9.6 fL (9.1-12.4); Platelet Count 262 K/mm3 (150-400); RDW Coefficient Variation 14.4 % (11.7-14.2); RDW Standard Deviation 50.4 fL (35.1-46.3); Red Blood Cell Count 4.46 M/mm3 (4.30-5.90); White Blood Cell Count 13.61 K/mm3 (4.00-11.30)
[2018-06-10 18:14] LABS: Alanine Aminotransfer (ALT/SGP 13 U/L (12-78); Albumin/Globulin Ratio 0.6 (0.8-1.8); Alk Phos 114 U/L (50-136); Aspartate Aminotrans (AST/SGOT 13 U/L (12-37); Bilirubin, Total 0.3 mg/dL (0.1-1.0); Blood Urea Nitrogen 9 mg/dL (8-24); Bun/Creatinine Ratio 19.1 (12.0-20.0); Calcium, Blood 8.7 mg/dL (8.5-10.1); Chloride, Blood 89 mmol/L (98-108); Creatinine, Blood 0.47 mg/dL (0.60-1.20); Glomerular Filtration Rate >60 (60-); Glucose, Blood 100 mg/dL (70-99); Potassium, Blood 2.7 mmol/L (3.5-5.5); Sodium, Blood 140 mmol/L (136-145)
[2018-06-10 19:03] LABS: Anion Gap Unable to Calculate mmol/L (6-16); CO2, Blood >45 mmol/L (21-32)
== END | disposition home or self-care (01) ==
LOC: LAB 13:50 → LAB SHORT 13:50
PROVIDERS: Family Medicine
DX: J44.9 Chronic obstructive pulmonary disease, unspecified (principal); I11.0 Hypertensive heart disease with heart failure; I50.32 Chronic diastolic (congestive) heart failure
CPT/HCPCS: 80053; 85027

== ENCOUNTER 2018-06-13 17:08 | Emergency (ER) | payer MEDICARE, OTHER ==
[~2018-06-13] VITALS: Ht 185.4 cm; Wt 204.1 kg
[~2018-06-13 17:08] MED LIST changes: -Ashwagandha PO; -HYDHCL25 PO; -METH5 PO; -Oxazepam30 MG PO; -PRED10 PO
[2018-06-13 17:58] LABS: BASOPHILS ABSOLUTE AUTO 0.05 K/mm3 (0.00-0.23); BASOPHILS PERCENT AUTO 0 % (0-2); EOSINOPHILS ABSOLUTE AUTO 0.46 K/mm3 (0.00-0.68); EOSINOPHILS PERCENT AUTO 3 % (0-6); Hematocrit 40.9 % (37.0-53.0); IMMATURE GRAN ABSOLUTE AUTO 0.07 K/mm3 (0.00-0.10); IMMATURE GRAN PERCENT AUTO 0 % (0-1); LYMPHOCYTES ABSOLUTE AUTO 2.07 K/mm3 (0.84-5.20); LYMPHOCYTES PERCENT AUTO 13 % (21-46); MONOCYTES ABSOLUTE AUTO 1.01 K/mm3 (0.16-1.47); MONOCYTES PERCENT AUTO 6 % (4-13); Mean Corpuscular HGB Conc 31.8 g/dL (31.5-36.5); Mean Platelet Volume 9.4 fL (9.1-12.4); NEUTROPHILS ABSOLUTE AUTO 12.02 K/mm3 (1.96-9.15); NEUTROPHILS PERCENT AUTO 77 % (41-73); Platelet Count 260 K/mm3 (150-400); RDW Coefficient Variation 14.5 % (11.7-14.2); RDW Standard Deviation 48.7 fL (35.1-46.3); Red Blood Cell Count 4.49 M/mm3 (4.30-5.90); White Blood Cell Count 15.68 K/mm3 (4.00-11.30)
[2018-06-13 18:01] LABS: Mean Corpuscular Volume 91 fL (80-100)
[2018-06-13 18:18] LABS: Alanine Aminotransfer (ALT/SGP 13 U/L (12-78); Albumin, Blood 2.9 g/dL (3.4-5.0); Albumin/Globulin Ratio 0.6 (0.8-1.8); Alk Phos 105 U/L (50-136); Aspartate Aminotrans (AST/SGOT 15 U/L (12-37); Bilirubin, Total 0.5 mg/dL (0.1-1.0); Blood Urea Nitrogen 16 mg/dL (8-24); Bun/Creatinine Ratio 31.6 (12.0-20.0); Calcium, Blood 8.5 mg/dL (8.5-10.1); Chloride, Blood 88 mmol/L (98-108); Creatinine, Blood 0.51 mg/dL (0.60-1.20); Globulin, Blood 4.9 g/dL (2.2-4.0); Glomerular Filtration Rate >60 (60-); Glucose, Blood 166 mg/dL (70-99); Potassium, Blood 2.6 mmol/L (3.5-5.5); Sodium, Blood 139 mmol/L (136-145); Total Protein, Blood 7.8 g/dL (6.4-8.2)
[2018-06-13 18:41] LABS: Anion Gap Unable to Calculate mmol/L (6-16); CO2, Blood >45 mmol/L (21-32)
== END 2018-06-13 21:19 | disposition home or self-care (01) ==
LOC: ER 17:08
PROVIDERS: Emergency Medicine
DX: J96.11 Chronic respiratory failure with hypoxia (principal); I10 Essential (primary) hypertension; J44.9 Chronic obstructive pulmonary disease, unspecified; Z99.81 Dependence on supplemental oxygen; Z79.899 Other long term (current) drug therapy
CPT/HCPCS: 71045; 80053; 83880; 85025; 99284-25

== ENCOUNTER 2018-06-16 17:58 | Inpatient (IN) | payer MEDICARE, OTHER ==
[~2018-06-16] VITALS: Ht 172.7 cm; Wt 190.7 kg
[2018-06-16 19:09] LABS: Source, Urine Catheter
[2018-06-16 19:18] LABS: Bilirubin, Urine Neg (Neg); Blood, Urine 5+ (Neg); Glucose Qualitative, Urine Neg (Neg); Ketones, Urine Neg (Neg); Leukocyte Esterase, Urine 1+ (Neg); Nitrite, Urine Neg (Neg); Protein, Urine 1+ (Neg); Specific Gravity, Urine 1.015 (1.003-1.022); Urobilinogen, Urine NORM (Normal)
[2018-06-16 19:18] LABS: BASOPHILS ABSOLUTE AUTO 0.07 K/mm3 (0.00-0.23); BASOPHILS PERCENT AUTO 1 % (0-2); EOSINOPHILS ABSOLUTE AUTO 0.62 K/mm3 (0.00-0.68); EOSINOPHILS PERCENT AUTO 4 % (0-6); Hematocrit 40.8 % (37.0-53.0); Hemoglobin 12.7 g/dL (13.5-17.5); IMMATURE GRAN ABSOLUTE AUTO 0.08 K/mm3 (0.00-0.10); IMMATURE GRAN PERCENT AUTO 1 % (0-1); LYMPHOCYTES ABSOLUTE AUTO 2.11 K/mm3 (0.84-5.20); LYMPHOCYTES PERCENT AUTO 14 % (21-46); MONOCYTES ABSOLUTE AUTO 1.04 K/mm3 (0.16-1.47); MONOCYTES PERCENT AUTO 7 % (4-13); Mean Corpuscular HGB Conc 31.1 g/dL (31.5-36.5); Mean Corpuscular Volume 93 fL (80-100); Mean Platelet Volume 9.3 fL (9.1-12.4); NEUTROPHILS PERCENT AUTO 74 % (41-73); Platelet Count 275 K/mm3 (150-400); RDW Coefficient Variation 14.6 % (11.7-14.2); RDW Standard Deviation 50.3 fL (35.1-46.3); Red Blood Cell Count 4.38 M/mm3 (4.30-5.90); White Blood Cell Count 15.22 K/mm3 (4.00-11.30)
[2018-06-16 19:36] LABS: Appearance, Urine Hazy (Clear); Color, Urine Yellow (P-Yellow)
[2018-06-16 19:37] LABS: Squamous Epithelial Cells Not Seen /hpf (Few)
[2018-06-16 19:38] LABS: Bacteria Rare /hpf; Red Blood Cells, Urine TNTC /hpf (0-2)
[2018-06-16 19:43] LABS: Alanine Aminotransfer (ALT/SGP 12 U/L (12-78); Albumin, Blood 2.9 g/dL (3.4-5.0); Albumin/Globulin Ratio 0.6 (0.8-1.8); Alk Phos 98 U/L (50-136); Aspartate Aminotrans (AST/SGOT 17 U/L (12-37); Bilirubin, Total 0.3 mg/dL (0.1-1.0); Blood Urea Nitrogen 12 mg/dL (8-24); Bun/Creatinine Ratio 24.9 (12.0-20.0); Calcium, Blood 8.8 mg/dL (8.5-10.1); Chloride, Blood 92 mmol/L (98-108); Creatinine, Blood 0.48 mg/dL (0.60-1.20); Globulin, Blood 5.1 g/dL (2.2-4.0); Glomerular Filtration Rate >60 (60-); Glucose, Blood 127 mg/dL (70-99); Potassium, Blood 2.6 mmol/L (3.5-5.5); Sodium, Blood 141 mmol/L (136-145)
[2018-06-16 19:45] LABS: CO2, Blood >45 mmol/L (21-32)
[2018-06-16 19:46] LABS: Anion Gap Unable to Calculate mmol/L (6-16)
[2018-06-16] MEDS ORDERED: DULO30 PO (20:13)
[2018-06-16] MEDS ORDERED: PRED10 PO (20:14)
[2018-06-16] MEDS ORDERED: Oxazepam30 MG PO (20:14)
[2018-06-16] MEDS ORDERED: Augmentin 875-1 EACH PO (20:15)
[2018-06-16] MEDS ORDERED: ASPI325 PO (20:17)
[2018-06-16] MEDS ORDERED: HYDHCL25 PO (20:18)
[2018-06-16] MEDS ORDERED: METH5 PO (20:19)
[2018-06-16] MEDS ORDERED: MELO7.5 PO (20:20)
[2018-06-16] MEDS ORDERED: Ashwagandha PO (21:26)
[2018-06-16 23:47] LABS: Base Excess Venous 25.5 mmol/L; Bicarbonate Venous 46.3 mmol/L (24.0-30.0); PO2 Venous 152 mmHg (38-42); pH Blood Venous 7.46 (7.34-7.37)
--- NOTE | 2018-06-17 06:36 | NUR ---
Rn summary: Patient is admitted to room 352 via stretcher. Pt is a lift patient and green lift sheet used with 4 assist to get into bed. Pt oriented to room. Pt has difficulty turning in bed. Pt has dry skin with magaly stasis discoloration. He has an open area to outer right leg. Buttocks has no obvious open areas, skin is very dry and pink. Please see pictures in chart. Pt refusing cpap and cont pulse oximetry. Tele shows SR with BBB and 1 degree AV block. HR was in the 70's but slowly increased to 100 this am. Pt is dreaming and calling out in his sleep which is his usual per staff who has taken care of him previously. Pt pulled out his IV this am. O2 found out of nose. Replaced and heart rate back down to 90. Pt was admitted due to hallucinations. PT denies any here but he says he has not been "watching the TV" ?? Respiratory panel sent this am. Mepelex drsg to open area rt outer calf. Call light in reach. Continues to sleep.
[2018-06-17 07:22] LABS: Hematocrit 41.7 % (37.0-53.0); Hemoglobin 12.7 g/dL (13.5-17.5); Mean Corpuscular HGB 28.6 pg (26.0-34.0); Mean Corpuscular HGB Conc 30.5 g/dL (31.5-36.5); Mean Corpuscular Volume 94 fL (80-100); Mean Platelet Volume 9.2 fL (9.1-12.4); Platelet Count 284 K/mm3 (150-400); RDW Coefficient Variation 14.7 % (11.7-14.2); RDW Standard Deviation 51.5 fL (35.1-46.3); Red Blood Cell Count 4.44 M/mm3 (4.30-5.90); White Blood Cell Count 17.75 K/mm3 (4.00-11.30)
[2018-06-17 07:34] LABS: Blood Urea Nitrogen 13 mg/dL (8-24); Bun/Creatinine Ratio 25.8 (12.0-20.0); Calcium, Blood 8.7 mg/dL (8.5-10.1); Chloride, Blood 96 mmol/L (98-108); Glomerular Filtration Rate >60 (60-); Glucose, Blood 161 mg/dL (70-99); Magnesium, Blood 2.1 mg/dL (1.6-2.4); Potassium, Blood 2.9 mmol/L (3.5-5.5); Sodium, Blood 144 mmol/L (136-145)
[2018-06-17 07:51] LABS: Adenovirus Not Detected (NOT DETECT); Bordetella pertussis Not Detected (NOT DETECT); Chlamydophila pneumoniae Not Detected (NOT DETECT); Coronavirus 229E Not Detected (NOT DETECT); Coronavirus HKU1 Not Detected (NOT DETECT); Coronavirus NL63 Not Detected (NOT DETECT); Coronavirus OC43 Not Detected (NOT DETECT); Human Metapneumovirus Not Detected (NOT DETECT); Human Rhinovirus/Enterovirus Not Detected (NOT DETECT); Influenza A Not Detected (NOT DETECT); Influenza A/2009-H1 Not Detected (NOT DETECT); Influenza A/H1 Not Detected (NOT DETECT); Influenza A/H3 Not Detected (NOT DETECT); Influenza B Not Detected (NOT DETECT); Mycoplasma pneumoniae Not Detected (NOT DETECT); Parainfluenza Virus 1 Not Detected (NOT DETECT); Parainfluenza Virus 2 Not Detected (NOT DETECT); Parainfluenza Virus 3 Not Detected (NOT DETECT); Parainfluenza Virus 4 Not Detected (NOT DETECT); Respiratory Syncytial Virus Not Detected (NOT DETECT)
[2018-06-17 07:54] LABS: Anion Gap Unable to Calculate mmol/L (6-16); CO2, Blood >45 mmol/L (21-32)
[2018-06-17 10:19] LABS: PO2 Arterial 75.7 mmHg (80-100); pH Blood Arterial 7.19 (7.35-7.45)
[2018-06-17 10:20] LABS: PCO2 Arterial > 106 mmHg (35-45)
--- NOTE | 2018-06-17 11:02 | NUR ---
PT TRANSFERED TO ICU AT 1050.
--- NOTE | 2018-06-17 11:21 | NUR ---
ICU ADMIT PT ARRIVES TO ICU 6 AT 1045. PT OBTUNDED, OCCASIONALLY GROANS SPONTANEOUSLY. GROANS TO PAINFUL STIMULI. PUPILS PINPOINT. DR NGUYEN AND DR ASTORGA TO BEDSIDE TO EVALUATE PT. PT PLACED ON BIPAP, 18/8 SPO2 35%. RR 19, TV 400-500, SPO2 93%. PT HAS CHRONIC SORIA, DRAINING YELLOW URINE TO GRAVITY. 20G PIV TO L HAND, SL. EDUIN ISRAEL TO BEDSIDE AT THIS TIME FOR ATTEMPT AT POWERGLIDE PLACEMENT.
[2018-06-17 12:18] LABS: PCO2 Arterial 102 mmHg (35-45); PO2 Arterial 80.5 mmHg (80-100); pH Blood Arterial 7.28 (7.35-7.45)
--- NOTE | 2018-06-17 12:38 | NUR ---
RN RECIEVED A CALL FROM THE LAB REPORTING A CRITICAL HIGH VALUE OF CO2 ABOVE 45. RN CALLED DR. NGUYEN AND REPORTED THIS FINDING. DR. NGUYEN DID NOT GIVE ANY ORDERS REGARDING THIS CRITICALLY HIGH VALUE. THE RN NOTED THE PT WAS DIAPHORETIC ALL THROUGHTOUT THE MORNING. THE PT WOULD NOT RESPOND TO VERBAL OR PAINFUL STIMULI. DR. NGUYEN INFORMED OF THESE FINDINGS. DR. NGUYEN ORDERED A STAT ABG AND ONCE THE RESULTS WERE BACK HE ASKED FOR THE PT TO BE TRANSFERRED IMMEDIATELY TO ICU WHERE HE CAN BE INTUBATED AND ORDERED A BIPAP. THE RN PUT THE ORDERS IN. ONCE A BED WAS AVAILABLE FOR THE PT, THE RN, STRAW HAT PRESSER AND PALLIATIVE CARE RN TRANSFERED THE PT DOWN TO ICU. WHILE THE PT WAS BEING LIFTED FROM BED INTO THE NEXT, HIS EYES OPENED AND HE BEGAN TO MOAN WHICH HE HAD'NT DONE ALL MORNING. THE RN GAVE REPORT TO THE GLOBAL MARKETING OPERATIONS MANAGER WHO WAS TAKING OVER CARE OF THIS PT.
--- NOTE | 2018-06-17 12:45 | NUR ---
PT BECOMING AGITATED, PULLING AGAINST RESTRAINTS, MOANING. STILL NOT ABLE TO FOLLOW ANY COMMMANDS, NOT SPEAKING ANY WORDS. ORDERS FROM DR ASTORGA TO START PRECEDEX. PLAN TO PLACE CENTRAL LINE ONCE PT CALM SINCE PT HAS SUCH POOR AND DIFFICULT IV ACCESS.
[2018-06-17 13:19] LABS: Source, Urine Catheter
[2018-06-17 13:29] LABS: Bilirubin, Urine Neg (Neg); Blood, Urine 5+ (Neg); Glucose Qualitative, Urine Neg (Neg); Ketones, Urine Neg (Neg); Leukocyte Esterase, Urine 1+ (Neg); Nitrite, Urine Neg (Neg); Protein, Urine 2+ (Neg); Urobilinogen, Urine NORM (Normal)
[2018-06-17 14:15] LABS: Appearance, Urine Cloudy (Clear); Color, Urine Yellow (P-Yellow)
[2018-06-17 14:16] LABS: Squamous Epithelial Cells Rare /hpf (Few)
[2018-06-17 14:17] LABS: Amorphous Heavy (0-Heavy); Bacteria Rare /hpf; Mucus Light (0-Heavy); Transitional Epithelial Cells Rare /hpf (0-Rare)
--- NOTE | 2018-06-17 15:57 | NUR ---
pt somulent and respirations labored. moved to ICU and director of teaching and learning consult. pt placed on bipap. Review of pt with physician. pt has polst on file that was not sighned. stating full treatment.
--- NOTE | 2018-06-17 17:45 | NUR ---
SHIFT SUMMARY PT CONTINUES ON BIPAP, 30/10 35%. PT SEDATED WITH PRECEDEX 0.5MCG/KG. CL PLACED TO R SUBCLAVIAN VEIN FOR DIFFICULT IV ACCESS. PT HAS JILLIAN SOFT WRIST RESTRAINTS IN PLACE DUE TO PULLING AT LINES, BIPAP. VITAL SIGNS STABLE. WILL CONTINUE TO MONITOR PT AND GIVE HANDOFF REPORT TO ONCOMING RN WHEN AVAILABLE.
--- NOTE | 2018-06-17 21:19 | NUR ---
ASSUMING CARE RECEIVED PT REPORT FROM EDUIN HOLT. PT IS IN ICU DUE TO ALTERED MENTAL STATUS. PT IS ON BIPAP AT 16/8 WITH 30% FIO2. PT SPO2 IS IN THE MID 90'S AT THIS TIME. PT IS VERY DIFFICULT TO AROUSE. PT ABLE TO FOLLOW COMMAND TO SQUEEZE HANDS ONCE. PT APPEARS TO BE COMFUSED WHILE AWAKE. PT IS ON PRECEDEX AT THIS TIME AT 0.5MCG/KG/HR FOR TOLERANCE OF BIPAP MASK. PER REPORT PT WILL BECOME HIGHLY AGITATED WITH PRECEDEX TITRATIONS. PT IS MORBIDLY OBESE AND IS IN A BARIATRIC BED AT THIS TIME. PT HAS KEVIN STASIS IN THE BLE AND HAS VERY DRY SCALY SKIN ON BILAT FEET. PT HAS SORIA TEMP PROBE IN PLACE. PT IS AFEBRILE AT THIS TIME AND SORIA IS PATENT AND DRAINING CLEAR YELLOW URINE. PT HR IS MAINTAINING IN THE MID 50'S. BP IS STABLE AT THIS TIME. PT IS NPO AT THIS TIME. CVP TAKEN AT THE START OF SHIFT WAS 12. ASSUMING CARE OF PT AT THE TIME OF SHIFT REPORT. WILL CONTINUE TO MONITOR PT.
--- NOTE | 2018-06-17 23:56 | NUR ---
COMBATIVE. PT AWOKE THROUGH TURN AND BECAME COMBATIVE. PT ATTEMPTED TO SWING ARMS AT ACID PUMPER AND PULL AT LINES AND BIPAP MASK. PT BEGAN SWEARING AND YELLING AT STAFF. PT DEMANDED TO HAVE WATER AND WAS TOLD THAT HE CAN HAVE ICU CHIPS BUT WATER UNSAFE AT THIS TIME. PT CONTINUED TO BE HIGHLY AGITATED, COMBATIVE, AND VERBALLY ABUSIVE TO STAFF. THIS RN GOT ICE CHIPS FOR PT, PT WAS ASLEEP UPON RETURNING TO ROOM WITH ICE CHIPS. PT REMAINS ON PRECEDEX AT 0.5 AT THIS TIME. WILL CONTINUE TO MONITOR PT.
[2018-06-18 04:00] LABS: BASOPHILS ABSOLUTE AUTO 0.04 K/mm3 (0.00-0.23); BASOPHILS PERCENT AUTO 0 % (0-2); EOSINOPHILS ABSOLUTE AUTO 0.21 K/mm3 (0.00-0.68); EOSINOPHILS PERCENT AUTO 2 % (0-6); Hemoglobin 11.3 g/dL (13.5-17.5); IMMATURE GRAN ABSOLUTE AUTO 0.06 K/mm3 (0.00-0.10); IMMATURE GRAN PERCENT AUTO 1 % (0-1); LYMPHOCYTES ABSOLUTE AUTO 2.18 K/mm3 (0.84-5.20); LYMPHOCYTES PERCENT AUTO 17 % (21-46); MONOCYTES ABSOLUTE AUTO 0.97 K/mm3 (0.16-1.47); MONOCYTES PERCENT AUTO 8 % (4-13); Mean Corpuscular HGB Conc 30.5 g/dL (31.5-36.5); Mean Corpuscular Volume 95 fL (80-100); Mean Platelet Volume 9.1 fL (9.1-12.4); NEUTROPHILS ABSOLUTE AUTO 9.39 K/mm3 (1.96-9.15); NEUTROPHILS PERCENT AUTO 73 % (41-73); Platelet Count 236 K/mm3 (150-400); RDW Coefficient Variation 14.8 % (11.7-14.2); RDW Standard Deviation 51.8 fL (35.1-46.3); Red Blood Cell Count 3.89 M/mm3 (4.30-5.90); White Blood Cell Count 12.85 K/mm3 (4.00-11.30)
[2018-06-18 04:21] LABS: Albumin, Blood 2.7 g/dL (3.4-5.0); Blood Urea Nitrogen 16 mg/dL (8-24); Bun/Creatinine Ratio 29.3 (12.0-20.0); Calcium, Blood 8.9 mg/dL (8.5-10.1); Chloride, Blood 99 mmol/L (98-108); Creatinine, Blood 0.55 mg/dL (0.60-1.20); Glomerular Filtration Rate >60 (60-); Glucose, Blood 128 mg/dL (70-99); Phosphorus, Blood 1.9 mg/dL (2.5-4.9); Potassium, Blood 3.1 mmol/L (3.5-5.5); Sodium, Blood 146 mmol/L (136-145); Troponin I <0.015 ng/mL (0.000-0.040)
[2018-06-18 04:24] LABS: Anion Gap Unable to Calculate mmol/L (6-16); CO2, Blood >45 mmol/L (21-32)
--- NOTE | 2018-06-18 05:45 | NUR ---
SHIFT SUMMARY NOTE PT AWOKE AT APPROX 0315 AND WAS ABLE TO ANSWER MOST ORIENTATION QUESTIONS APPROPRIATELY AT THAT TIME. PT RESTRAINTS WERE REMOVED AT THAT TIME. PT HAS NOT BEEN OBSERVED TO PULL AT LINES OR BIPAP MASK. PT HAS BEEN PROVIDED ICE CHIPS, BUT IS OTHERWISE NPO. PT REMAINS ON PRECEDEX AT 0.5MCG/KG/HR. PT IS AGITATED AT TIMES AND CAN BE DEMANDING. PT CONTINUES TO HAVE SORIA TEMP PROBE IN PLACE. PT HAS BEEN AFEBRILE OVERNIGHT. URINE IS GRACE AND CLOUDY AT THIS TIME, PT HAD APPROX 250ML OF URINE OUTPUT. PT VITAL SIGNS HAVE REMAINED STABLE THROUGHOUT THE NIGHT. BIBPA SETTINGS REMAIN 16/8 WITH 30% FIO2. WILL REPORT OFF TO ONCOMING DAY SHIFT NURSE.
--- NOTE | 2018-06-18 07:51 | NUR ---
ASSUMED CARE: PT RESTING IN BED, BIPAP IN PLACE, SETTINGS 16/8 WITH 30% FIO2. AWAKENS AND ASKS QUESTIONS. GRUFF WITH STAFF AT TIMES. PRECEDEX RUNNING AT 0.5MCG/KG AT THIS TIME. NO ACUTE NEEDS OR CONCERNS AT THIS TIME.
[2018-06-18 10:32] LABS: Vancomycin, Random 16.6 ug/mL
--- NOTE | 2018-06-18 12:53 | NUR ---
PT GIVEN A BREAK FOR ORAL CARE AND A DRINK OF WATER. PT WAS ON ROOM AIR, SATTING MID 90S FOR ABOUT 3 MINUTES. DURING ORAL CARE, PT LOST A TOOTH WHICH HE STATES HAPPENED OFTEN AT HOME DUE TO BAD ORAL HYGIENE. BIPAP MASK REPLACED AFTER SIPS OF WATER AND ICE CHIPS. NO FURTHER NEEDS OR CONCERNS AT THIS TIME.
--- NOTE | 2018-06-18 14:08 | NUR ---
PT BEGAN HOLLERING AND THRASHING IN THE BAD, BANGING ARMS AGAINST RAILS. SAID HE WAS IN PAIN. PT WAS TOLD THAT THIS RN WAS INSTRUCTED TO ONLY GIVE TYLENOL SO NOT TO DEPRESS RESPIRATORY STATUS. DR ASTORGA AWARE AND INSTRUCTED THIS RN TO RESTART PRECEDEX AND GIVE FENTANYL SINCE PT USES CHRONIC METHADONE AT HOME AND MAY BEGIN GOING THROUGH WITHDRAWALS. MEDICATED WITH FENTANYL AND PRECEDEX. WILL CONTINUE TO MONITOR AND TITRATE ABLE
--- NOTE | 2018-06-18 18:06 | NUR ---
SHIFT SUMMARY: PT REMAINS ON BIPAP AT 16/8 AND 25% FIO2. PRECEDX GTT RESTARTED AND RUNNING AT 0.3 MCG/KG/MIN. HE HAS BEEN AGITATED AND GRUFF WITH STAFF AT TIMES, DEMANDS WATER AND HAS HAD TO BE REMINDED THAT HE NEEDS THE MASK ON AND THAT BREAKS ARE LIMITED DUE TO ONLY TOLERATING BEING OFF THE MASK FOR A FEW MINUTES. NO FURTHER NEEDS OR CONCERNS AT THIS TIME.
--- NOTE | 2018-06-18 21:33 | NUR ---
ASSUMING CARE. RECEIVED REPORT FROM Antonio MAYER RN. PT IS ALERT AND ORINETED AT THE TIME OF SHIFT REPORT. PT REMAINES ON BIPAP AT 16/8 WITH 25% FIO2. PT SPO2 IS MAINTAINING IN THE MID 90'S AT THIS TIME. PT LUNG SOUNDS ARE DIMINISHED THROUGHOUT. PT WILL DESATURATE INTO THE 80'S WITH BIPAP REMOVED FOR A SHORT WHILE. PT IS RECEIVING D5 1/2 NS W/ KCL AT A RATE OF 60ML/HR. PT IS RECEIVING PRECEDEX AT 0.3MCG/KG/HR AT THE START OF SHIFT. PRECEDEX PLACED ON STANDBY AT THE TIME OF SHIFT REPORT. PT APPEARS TO BE TOLERATING REMOVAL OF PRECEDEX GTT WELL AT THIS TIME. PT HAS SORIA TEMP PROBE IN PLACE AT THIS TIME. PT HAS GRACE CLOUDY URINE. PT TEMPERATURE IS APPROX 99.1 AT THE START OF SHIFT. PT HR IS MAINTAINING IN THE 50-60 RANGE AT THIS TIME. PT APPEARS TO HAVE A 1ST DEGREE HB. PT BP IS IN THE 140'S RANGE AT THIS TIME AND IS STABLE. ASSUMING CARE OF PT AT THE TIME OF SHIFT REPORT. WILL CONTINUE TO MONITOR.
[2018-06-19 03:59] LABS: BASOPHILS ABSOLUTE AUTO 0.06 K/mm3 (0.00-0.23); BASOPHILS PERCENT AUTO 1 % (0-2); EOSINOPHILS PERCENT AUTO 3 % (0-6); Hemoglobin 11.6 g/dL (13.5-17.5); IMMATURE GRAN ABSOLUTE AUTO 0.08 K/mm3 (0.00-0.10); IMMATURE GRAN PERCENT AUTO 1 % (0-1); LYMPHOCYTES ABSOLUTE AUTO 2.65 K/mm3 (0.84-5.20); LYMPHOCYTES PERCENT AUTO 22 % (21-46); MONOCYTES ABSOLUTE AUTO 1.03 K/mm3 (0.16-1.47); MONOCYTES PERCENT AUTO 9 % (4-13); Mean Corpuscular HGB 29.4 pg (26.0-34.0); Mean Corpuscular HGB Conc 32.2 g/dL (31.5-36.5); Mean Platelet Volume 9.3 fL (9.1-12.4); NEUTROPHILS ABSOLUTE AUTO 7.66 K/mm3 (1.96-9.15); NEUTROPHILS PERCENT AUTO 64 % (41-73); Platelet Count 274 K/mm3 (150-400); RDW Coefficient Variation 14.9 % (11.7-14.2); RDW Standard Deviation 49.6 fL (35.1-46.3); Red Blood Cell Count 3.95 M/mm3 (4.30-5.90); White Blood Cell Count 11.88 K/mm3 (4.00-11.30)
[2018-06-19 04:00] LABS: Mean Corpuscular Volume 91 fL (80-100)
[2018-06-19 04:14] LABS: Albumin, Blood 2.8 g/dL (3.4-5.0); Anion Gap 5 mmol/L (6-16); Blood Urea Nitrogen 14 mg/dL (8-24); Bun/Creatinine Ratio 25.8 (12.0-20.0); CO2, Blood 38 mmol/L (21-32); Calcium, Blood 8.5 mg/dL (8.5-10.1); Chloride, Blood 99 mmol/L (98-108); Creatinine, Blood 0.54 mg/dL (0.60-1.20); Glomerular Filtration Rate >60 (60-); Glucose, Blood 111 mg/dL (70-99); Phosphorus, Blood 2.2 mg/dL (2.5-4.9); Potassium, Blood 2.5 mmol/L (3.5-5.5); Sodium, Blood 142 mmol/L (136-145)
--- NOTE | 2018-06-19 06:19 | NUR ---
SHIFT SUMAMRY NOTE PT HAS REMAINED ALERT AND ORIENTED THROUGH THE NIGHT. PT CONTINUES TO BE DEMANDING AND AT TIMES VERBALLY ABUSIVE TO STAFF. PT REQUESTS VERY FREQUENT REPOSITIONING. PT HAS REMAINED AWAKE THROUGH THE ENTIRE NIGHT. PT HAS BEEN PROVIDED PAIN MEDICATIONS MULTIPLE TIMES THROUGH THE NIGHT. PT HAS STATED THAT HE "JUST WANTS TO BE KNOCKED OUT" AND HAS REQUESTED TO HAVE " MUCH HE CAN GET TO KNOCK HIM OUT" PT REMAINS ON BIPAP AT 16/8 WITH 25% FIO2. PT SPO2 HAS MAINTAINED IN THE MID 90'S THROUGHOUT THE NIGHT. PT WILL DESATURATE INTO THE 80'S WITH MASK REMOVED. PT REPORTS THAT HE DOES FEEL SHORT OF BREATH WHEN MASK IS REMOVED. PT CONTINUES TO HAVE SORIA TEMP PROBE IN PLACE. PT HAD APPROX 450ML DARK GRACE URINE OUTPUT OVERNIGHT. PT TEMPERATURE HAS INCREASED AND IS APPROX 99.9 TO 100.0. BLANKETS HAVE BEEN REMOVED AND FAN PLACE. PT WAS PROVIDED TYLENOL. PT CONTINUES TO RECEIVE D5 1/2 NW W/ 20 MEQ KCL AT A RATE OF 60ML/HR. PT HAS BEEN OFF PRECEDEX SINCE START OF SHIFT. PT HAS BEEN ABLE TO TOLERATE SIPS OF WATER AND ICE CHIPS WELL. WILL REPORT OFF TO [facility] DAY SHIFT NURSE.
--- NOTE | 2018-06-19 07:25 | NUR ---
ASSUMED CARE: PT RESTING IN BED, BIPAP IN PLACE AT 16/8 WITH 25% FIO2. RT AT BEDSIDE. PVCS NOTED FOR CARDIAC RHYTHM. LOOKED BACK AND NOTED THAT THIS HAD BEGUN DURING REPORT. AT THIS TIME PT APPEARS TO BE SWITCHING BETWEEN NSR AND FREQUENT PVCS. CALL TO DR ASTORGA TO MAKE HIM AWARE OF FREQUENT PVCS AND THAT POTASSIUM IS LOW. SEE NEW ORDERS
--- NOTE | 2018-06-19 08:48 | NUR ---
AGREE WITH STUDENT'S SHIFT ASSESSMENT EXCEPT PSYCOSOCIAL. SEE ASSESSMENT
--- NOTE | 2018-06-19 09:30 | NUR ---
PT STATES HE NEEDS TO HAVE A BM. OFFERED BEDPAN BUT PT STATES THAT DOES NOT WORK. ASKED PT IF HE AMBULATES AT HOME AND HE SAID NO. TOLD HIM IT WOULD NOT BE SAFE TO AMBULATE HIM HERE DUE TO BEING DEBILITATED. STATED THAT IF WE COULD BERIATRIC COMMODE WE COULD LIFT HIM TO BSC. HOUSE KEEPING SEARCHED FOR COMMODE AND ALL IN USE. PT BECAME IRRITATED AND STATED HE WOULD JUST HOLD IT. EDUCATED PT THAT HE SHOULD NOT DO THIS AND THAT THIS RN WOULD DISCUSS FURTHER FOR MORE OPTIONS WITH [employer]
[2018-06-19 10:48] LABS: Vancomycin, Trough 22.5 ug/mL (5.0-10.0)
--- NOTE | 2018-06-19 11:00 | NUR ---
RECHECKED WITH PT ABOUT BM. PT STATED HE WOULD LET US KNOW WHEN THE URGE CAME AND HE WOULD USE BSC IF HE HAD TO
--- NOTE | 2018-06-19 13:00 | NUR ---
PT REQUESTED SUPPOSITORY FOR BM. CALL TO MD TO RETRIEVE THIS. PT MEDICATED AND CALLED RN IN TO REMOVE BEDPAN. DENIED FURTHER NEEDS OR CONCERNS
--- NOTE | 2018-06-19 14:00 | NUR ---
DR ASTORGA ORDERED CLEAR LIQUID DIET. PT INFORMED THAT THIS IS AVAILABLE BUT THAT WE WILL HAVE TO LIMIT TIME SPENT ON FOOD SINCE HE CAN STILL ONLY TOLERATE BEING OFF BIPAP FOR A FEW MINUTES. PT REQUESTED BROTH THAT WAS PROVIDED AND WAS INFORMED OF NEED TO COOL.
--- NOTE | 2018-06-19 16:50 | NUR ---
PT CALLED RN TO ROOM FOR BED CHANGE. PT WAS GIVEN A BREAK FROM BIPAP FOR SIPS OF CLEAR LIQUIDS. PT ONLY TOLERATES BEING OFF BIPAP FOR A FEW MINUTES. NO ECTOPY NOTED SINCE REPLACEMENTS OF POTASSIUM PROVIDED.
--- NOTE | 2018-06-19 18:44 | NUR ---
Shift Summary: Patient has remained on BIPAP throughout shift. BIPAP settings remain at 16/8 with fi02 at 25% PT tolaterated several breaks for only a few minutes in duration at a time. PT medicated for pain in lower legs. PT appears calm at this time and denies needs or concerns.
--- NOTE | 2018-06-19 18:50 | NUR ---
AGREE WITH RUBBER LINER'S SHIFT SUMMARY
--- NOTE | 2018-06-19 20:37 | NUR ---
ASSUMING CARE RECEIVED PT REPORT FROM CARY, EDUIN AND STUDENT NURSE. PT IS ALERT AND ORIENTED AT THE TIME OF SHIFT REPORT. PT PLACED ON BEDPAN AT THE TIME OF SHIFT REPORT. PT REMAINS ON D5 1/2 NS AT 60ML/HR. PT REMAINS OFF OF SEDATION AT THIS TIME. PT HAS SORIA TEMP PROBE IN PLACE, CURRENTLY PATENT AND DRAINING. PT TEMP NOTED TO BE APPROX 99.0. PT BP IS ELEVATED IN THE 160-180'S SYSTOLIC. PT PROVIDED HYDRALAZINE PER EMAR. WILL MONITOR AND TREAT PRN. PT HR IS IN THE 60-70'S RANGE. PT IS NOTED TO HAVE OCCASIONAL PVC'S. PT IS ON BIPAP AT 16/8 WITH 25% FIO2. PT IS ONLY ABLE TO TOLERATE SHORT BREAKS FROM BIPAP BEFORE DESATURATING. ASSUMED CARE OF PT AT THE TIME OF SHIFT REPORT. WILL CONTINUE TO MONITOR PT.
--- NOTE | 2018-06-20 02:32 | NUR ---
REFUSING TURNS PT HAS BEEN ENCOURAGED TO TURN MULTIPLE TIMES. PT IS REFUSING TURNS. PT WAS INFORMED THAT IF HE DOES NOT TURN OFF OF HIS BACK HE CAN FORM A PRESSURE SORE. PT STATED THAT HE "DOESNT CARE, AND HE ISNT GOING TO GET A SORE" PT STATED THAT HE CANT BE FORCED TO MOVE AND THAT HE WOULDNT LET THIS RN TURN HIM BECAUSE HE IS "FINALLY COMFORTABLE" WILL CONTINUE TO ENCOURAGE TURNS. WILL CONTINUE TO MONITOR.
[2018-06-20 03:44] LABS: BASOPHILS ABSOLUTE AUTO 0.05 K/mm3 (0.00-0.23); BASOPHILS PERCENT AUTO 1 % (0-2); EOSINOPHILS ABSOLUTE AUTO 0.67 K/mm3 (0.00-0.68); EOSINOPHILS PERCENT AUTO 7 % (0-6); Hematocrit 34.7 % (37.0-53.0); Hemoglobin 11.1 g/dL (13.5-17.5); IMMATURE GRAN ABSOLUTE AUTO 0.04 K/mm3 (0.00-0.10); IMMATURE GRAN PERCENT AUTO 0 % (0-1); LYMPHOCYTES PERCENT AUTO 21 % (21-46); MONOCYTES ABSOLUTE AUTO 1.03 K/mm3 (0.16-1.47); MONOCYTES PERCENT AUTO 10 % (4-13); Mean Corpuscular HGB 28.5 pg (26.0-34.0); Mean Corpuscular Volume 89 fL (80-100); Mean Platelet Volume 9.3 fL (9.1-12.4); NEUTROPHILS ABSOLUTE AUTO 6.19 K/mm3 (1.96-9.15); NEUTROPHILS PERCENT AUTO 62 % (41-73); Platelet Count 255 K/mm3 (150-400); RDW Coefficient Variation 15.7 % (11.7-14.2); RDW Standard Deviation 50.8 fL (35.1-46.3); Red Blood Cell Count 3.89 M/mm3 (4.30-5.90); White Blood Cell Count 10.08 K/mm3 (4.00-11.30)
[2018-06-20 03:58] LABS: Albumin, Blood 2.7 g/dL (3.4-5.0); Anion Gap 6 mmol/L (6-16); Blood Urea Nitrogen 9 mg/dL (8-24); Bun/Creatinine Ratio 17.3 (12.0-20.0); CO2, Blood 34 mmol/L (21-32); Chloride, Blood 103 mmol/L (98-108); Creatinine, Blood 0.52 mg/dL (0.60-1.20); Glomerular Filtration Rate >60 (60-); Glucose, Blood 109 mg/dL (70-99); Phosphorus, Blood 3.9 mg/dL (2.5-4.9); Sodium, Blood 143 mmol/L (136-145)
--- NOTE | 2018-06-20 06:33 | NUR ---
SHIFT SUMMARY NOTE PT HAS REMAINED ALERT AND ORIENTED THROUGHOUT THE NIGHT. PT HAS BEEN AWAKE THROUGH THE ENTIRE NIGHT. PT REMAINS ON BIPAP. BIPAP SETTINGS HAVE REMAINED UNCHANGED AND ARE 16/8 AT 25% FIO2. PT SPO2 HAS REMAINED IN THE MID 90'S THROUGH THE NIGHT. PT CONTINUES TO REPORT SOME SHORTNESS OF BREATH WHEN MASK IS OFF. PT HAS BEEN REFUSING MOST TURNS THROUGH THE NIGHT. PT CONTINUES TO HAVE DARK GRACE URINE. PT HAD APPROX 300ML OF URINE OUTPUT OVERNIGHT. PT IS AFEBRILE AT THIS TIME. PT HAS REPORTED PAIN FREQUENTLY THROUGH THE NIGHT AND WAS PROVIDED FENTANYL AND NORCO PER EMAR. PT HAS BEEN HYPERTENSIVE AT TIMES THROUGH THE NIGHT. PT WAS PROVIDED HYDRALAZINE X2 THROUGH THE NIGHT WITH SOME EFFECT. WILL REPORT OFF TO ONCOMING DAY SHIFT NURSE.
--- NOTE | 2018-06-20 07:18 | NUR ---
ASSUMED CARE: PT RESTING IN BED AT THIS TIME, BIPAP IN PLACE AT 16/8, FIO2 25%. SATTING MID 90S O2. EXCHANGE ENGINEER AT BEDSIDE AT THIS TIME.
--- NOTE | 2018-06-20 08:16 | NUR ---
AGREE WITH GRIZZLY WORKER HEAD TO TOE ASSESSMENT
--- NOTE | 2018-06-20 08:20 | NUR ---
DR NGUYEN AWARE OF PT'S POTASSIUM LEVEL. SEE NEW ORDERS. DISCUSSED WITH PT'S PATTERN WITH BIPAP AND THAT HE IS SOB WITH OR WITHOUT NC SUPPLEMENTATION. WILL DISCUSS FURTHER WITH DR ASTORGA.
--- NOTE | 2018-06-20 11:09 | NUR ---
PT REQUESTED TO COME OFF BIPAP FOR A BREAK. TOLERATING WELL WITH SATS MID 90S. TALKED WITH PT ABOUT KEEPING MASK OFF FOR A LITTLE WHILE, PT AGREED. NSR, 70S AT THIS TIME. O2 SATS 97%. NO ACUTE DISTRESS AT THIS TIME
--- NOTE | 2018-06-20 11:57 | NUR ---
PT HAS BEEN ON BREAK FROM BIPAP SINCE 1104. DR ELLISON AWARE. DISCUSSED WITH HER PT'S CURRENT BIPAP SETTINGS AND PCU STATUS. WISHES TO KEEP PCU STATUS AND KEEP THESE SETTINGS, ESPECIALLY WHILE PT IS ASLEEP, WITH ABG ORDERED FOR AM. DR ELLISON AT BEDSIDE AT THIS TIME WITH PT STILL OFF BIPAP AND CONVERSING WITH
--- NOTE | 2018-06-20 13:25 | NUR ---
PT BACK ON BIPAP AT THIS TIME. USING BEDPAN. NURSE AND WOOD MILL SUPERVISOR AT BEDSIDE.
--- NOTE | 2018-06-20 17:24 | NUR ---
PT has tolerated multiple breaks from BIPAP today ranging from 1- 3 hours in duration.
--- NOTE | 2018-06-20 17:52 | NUR ---
SHIFT SUMMARY: PT was off BIPAP for about 5 hours of shift, without complaints or desats. PT refused 2/3 attempts to repostion during shift. PT has been in pleasant mood throughout day. PT is interested in food and wants to start progressing diet. PT is currently resting with no complaints or needs at this time.
--- NOTE | 2018-06-20 18:36 | NUR ---
SHIFT SUMMARY: PT REFUSED ALL ATTEMPTS TO REPOSITION THIS SHIFT. APPEARS MORE PLEASANT THIS SHIFT. DR ELLISON WISHES TO TRY HIS HOME BIPAP SETTINGS THIS EVENING WITH ABG IN AM. PT TOLERATING CLEAR LIQUIDS WELL. ALTERNATED BETWEEN BIPAP AND NC AND TOLERATED BEING OFF FOR ABOUT 5 HOURS THIS SHIFT.
--- NOTE | 2018-06-21 | NUR ---
CARE ASSUMED - CPAP USE REPORT RECEIVED, CARE ASSUMED AT 1900. VITALS STABLE AT THIS TIME. PT ALTERNATING BETWEEN BIPAP AND NASAL CANNULA AND TOLERATING WELL. PT DOES GET SHORT OF BREATH AND ANXIOUS WITH TOO LONG OF BREAKS AND CALLS WHEN HE FEELS HE NEEDS TO GO BACK ON BIPAP. PER DR. ELLISON PROGRESS NOTE AND DISCUSSION WITH ERNESTO RT, PT PLACED ON HOME CPAP SETTING AND PLAN FOR ABG IN MORNING. PT UPSET, YELLING, THRASHING AT ITEMS IN BED UPON THIS DISCUSSION. SEE RT NOTE FOR SPECIFICS. ATTEMPTED TO EDUCATE PT AND PT CONTINUES TO ESCALATE. LEFT PT WITH NASAL CANNULA IN PLACE. CPAP IN REACH FOR PT TO USE PRN. OTHERWISE, PT BEING MEDICATED FOR PAIN PER EMAR. PT REQUESTING ADL'S BUT OTHERWISE REFUSING WHEN PROMPTED BY STAFF. SEE FLOWSHEETS/ASSESSMENTS.
--- NOTE | 2018-06-21 01:50 | NUR ---
DR. ELLISON COMMUNICATION DR. ELLISON UPDATED ON PT'S NONCOMPLIANCE WITH CPAP, REFUSAL OF MORNING ABG AND ANXIETY RELATED TO NO BIPAP. PER DR. ELLISON, OK FOR PT TO WEAR BIPAP IF HE REQUESTS AT THIS POINT.
--- NOTE | 2018-06-21 06:00 | NUR ---
SUMMARY SINCE PREVIOUS NOTE, PT PLACED ON BIPAP. PT HAS BEEN ON AND OFF PER REQUEST AND TOLERATED WELL. VITALS STABLE. PT CONTINUES TO ONLY ALLOW ADL'S REQUESTED AND NOT WHEN PROMPTED BY STAFF. VITALS CONTINUE TO BE STABLE.
--- NOTE | 2018-06-21 07:07 | NUR ---
REPORT TO EDUIN CEJA TO ASSUME CARE
--- NOTE | 2018-06-21 07:15 | NUR ---
Recieved report from Maria Eugenia DENNY. Patient supine in bed with HOB at 15 degrees and he is moaning and states pain 4/10. He asked for water and Dr Stockton at bedside evaluating patient to go back to OR today for ID and stated he could have ice chips, patient tolerating well. He is on 2L via NC and sats upper 90%'s, denies any SOB. Patient has 20ga LAC, 18ga RH, 18ga LH and all dressings intact and sites WNL's. LAC infusing Levophed at 5mcg and systolic in the low 100's and LH IV infusing vancomycin. He has 16ga Temp goodrich draining stefanie gravity. Left leg wrapped in Santos bandage and weaping on dry flows and Dr Meraz evaluating to take back to OR for I&D but feels that anesthesia would want off Levophed first so may be tomorrow. NERY.
--- NOTE | 2018-06-21 07:30 | NUR ---
Recieved report from Maria Eugenia DENNY. Patient lying in bed slightly on rught side with HOB at 30 degrees. He is alert and oriented and is being non comp[liant with some of his care requests. I talked with him about refusinng his home CPAP as he wore the hospital BIPAP last night. I stated that the Dr would like to see his blood gas after wearing the CPAP to see if he needs to tranfer to BIPAP and after short discussion convinced to do trial run and we would do VBG instead of ABG which he is afraid of. He is currently on 3L via NC and sast mid 90%'s and after breakfast we will do trial and he agreed. He has R subclavin CL quad lumen and dressing intact and site WNL's and is infusin D5 1/2 NS with 20meq of K. He has 16Fr. temp goodrich and draining to gravity. He has coarse skin and discoloration to LE bilaterally.
[2018-06-21 08:32] LABS: Anion Gap 3 mmol/L (6-16); Blood Urea Nitrogen 6 mg/dL (8-24); Bun/Creatinine Ratio 12.1 (12.0-20.0); CO2, Blood 34 mmol/L (21-32); Calcium, Blood 7.8 mg/dL (8.5-10.1); Chloride, Blood 103 mmol/L (98-108); Creatinine, Blood 0.49 mg/dL (0.60-1.20); Glomerular Filtration Rate >60 (60-); Glucose, Blood 109 mg/dL (70-99); Potassium, Blood 3.3 mmol/L (3.5-5.5); Sodium, Blood 140 mmol/L (136-145)
--- NOTE | 2018-06-21 08:36 | NUR ---
Patient just has PICC line placed in GABBY and transfered oll gtts to PICC line. Dr Rangel has started NS at 125ml/hr for 500ml. She is holding all diuretics and BP meds.
--- NOTE | 2018-06-21 09:40 | NUR ---
Patient is wearing CPAP as agreed and just ed VBG to be done by RT standing by and he tolerated well and denied any anxiety. He tolerated Cl Liq breakfast. VSS.
[2018-06-21 09:50] LABS: Base Excess Venous 7.8 mmol/L; PCO2 Venous 52.4 mmHg (38-42); PO2 Venous 55.9 mmHg (38-42)
--- NOTE | 2018-06-21 11:30 | NUR ---
Patient rerquest to be off CPAP and placed back on 3L O2 via NC. Patient denies any current pain or needs other than some water. Lunch is coming and will give bath after lunch. No other significant changes. Dr Acevedo and Dr Rangel both have seen patient and we are awaiting PCU bed availability.
--- NOTE | 2018-06-21 13:30 | NUR ---
Patient is awake and talking with RT pulmonary support for information on CPAP. He denies any pain oe need for intervention. No Other significant changes. Fluids were dc'd earlier.
--- NOTE | 2018-06-21 15:20 | NUR ---
Patient recieved bath and half way through bath needed to apply CPAP. VSS see chart. Patient has been calm cooperative with his care. Lotioned feet really well. Gave report to COLLECTION ADVISOR and patient will be transfering to PCU 10. I&O are done early.
--- NOTE | 2018-06-21 16:02 | NUR ---
ASSUMED CARE ASSUMED CARE OF PT APPROX. 1535. PT TRANSFERED FROM ICU TO PCU. RECIEVED REPORT FROM OVEN LOADER. PT ARRIVED TO UNIT IN BERIATRIC BED. PT A&O X4. VITAL SIGNS STABLE. ASSESSMENT FINDINGS REMAIN UNCHANGED FROM ASSESSMENT AND REPORT FROM RN. PT WAS REMINDED TO BE POLITE AND TO USE CALL LIGHT APPROPRIATELY. PT PLEASANT AT THIS TIME. NO S/SX OF ACUTE DISTRESS. BED IN LOW POSITION. SORIA INTACT, PATENT AND DRAINING. WILL CONTINUE TO MONITOR.
--- NOTE | 2018-06-21 17:57 | NUR ---
SHIFT SUMMARY PT ASSESSMENT FINDINGS REMAIN UNCHANGED FROM ARRIVAL TO UNIT. PT USES CALL LIGHT APPROPRAITELY AND CONTINUED TO REMIND PT TO USE CALL LIGHT APPROPRIATELY. PT REPORTS SOME INCREASED PAIN, PRN PAIN MEDICAITON GIVEN PER EMAR. PT REMAINED PLEASANT AND CONTINUED TO USE MANNERS. ENCOURAGED PT TO CONTINUE THIS. VITAL SIGNS REMAIN STABLE. BED IN LOW POSITION, CALL LIGHT IN REACH AND PT DENIES ANY NEEDS AT THIS TIME. WILL CONTINUE TO MONITOR UNTIL HANDOFF TO NIGHTSHIFT RN.
--- NOTE | 2018-06-22 01:35 | NUR ---
PT REFUSING CPAP AND/OR BIPAP. I OFFERED TO TRY FULL FACE MASK, BUT PT DECLINED. SPO2 95% ON 4L NC. CONT OX IN USE.
--- NOTE | 2018-06-22 03:01 | NUR ---
ASSUMED CARE OF PATIENT AT APPROXIMATELY 1905 FROM LINA Marcano RN. PATIENT ALERT AND ORIENTED X4. PATIENT COMPLAINS OF "GENERAL" PAIN; MEDICATED PER EMAR. PATIENT REPORTS SOME NUMBNESS AND TINGLNIG IN HIS RIGHT FINGERS. PATIENT DENIES DIZZINESS AND NAUSEA. PATIENT REFUSING REPOSISTIONING, CPAP AND BIPAP. PATIENT REPORTS CAUSES PAIN. PATIENT EDUCATED. PATIENT IN BARIATRIC BED. PATIENT WEAK; LIFT USED TO TURN PATIENT. PATIENT COMPLAINS OF NOT HAVING REAL FOOD. DAYSHIFT RN REPORTS PATIENT AGREED TO HAVE MEDIPORT PLACED; PATIENT REPORTS HE IS A FREQUENT FLIER. PATIENT HAS CENTRAL LINE. PATIENT HAS URINARY CATHETER PATENT AND DRAINING. PATIENT CALLS WHEN HE NEEDS BEDPAN FOR BM; REFUSING COLACE. PATIENT REPORTS BEDBOUND AT BASELINE. PATIENT CURRENTLY SLEEPING IN BED; CALL LIGHT IN REACH; BED IN LOWEST POSISTION; WILL CONTINUE TO MONITOR AND ASSESS UNTIL END OF SHIFT.
[2018-06-22 08:44] LABS: Base Excess Venous 8.6 mmol/L; Bicarbonate Venous 30.7 mmol/L (24.0-30.0); PCO2 Venous 58.9 mmHg (38-42); PO2 Venous 75.8 mmHg (38-42); pH Blood Venous 7.37 (7.34-7.37)
[2018-06-22 09:37] LABS: Anion Gap 5 mmol/L (6-16); Blood Urea Nitrogen 5 mg/dL (8-24); CO2, Blood 34 mmol/L (21-32); Calcium, Blood 8.2 mg/dL (8.5-10.1); Chloride, Blood 104 mmol/L (98-108); Creatinine, Blood 0.56 mg/dL (0.60-1.20); Glomerular Filtration Rate >60 (60-); Glucose, Blood 101 mg/dL (70-99); Potassium, Blood 3.4 mmol/L (3.5-5.5); Sodium, Blood 143 mmol/L (136-145)
--- NOTE | 2018-06-22 16:46 | NUR ---
Met with Renaldo this afternoon in his room. Renaldo is known to this lyric writer for several years when he used to come into the [facility] for dressing changes. He reports that he has been mostly bedbound for about the past year. 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 He has a edge stainer who helps him. He reports without her he would not be able to function. He continues to live with his roommate, Pretty, who he reports that is supposed to be his pizza delivery driver. He states that she doesn't help care for him but he feels sorry for her and doesn't want to kick her out. His teeth are in very poor condition and he reports he doesn't have the money for a dentist. He is resistant to seeking assistance from the state as he would have to spend down assests. During our conversation he did say that there are some things that he would consider parting with, a camp trailer and some guns. He states he holds onto things because he thinks he will use them someday. He does tell me that his health is poor and that likely he will not be able to go camping or out to do some long range shooting anymore. Encouraged him to consider selling some of his things he will no longer use and to consider putting that money away for getting his teeth repaired as that seems to be a priority to him. He states Oleg, COPD educator, has been in contact with him to assist him with a home bipap machine. He states the plan is for him to go home with [facility] tomorrow. He is a high risk for readmission. Hopefully outpatient RT support will help improve his sleep and breathing. Encouraged him to continue to consider alternative options for living.
--- NOTE | 2018-06-22 17:53 | NUR ---
The pt states that his goodrich catheter was placed because he was unable to remain continent of urine due to body habitus and inability to walk due to weakness. The incontinence he states was causing a problem with his leg wounds staying clean, per home health (he states). This is his explaination for why he has the goodrich. However, he is frustrated with the fact that he is having recurring urinary tract infections.
--- NOTE | 2018-06-22 18:18 | NUR ---
END OF SHIFT SUMMARY ASSUMED CARE OF PT @0700. PT APPEARS TO BE SLEEPING, MOUTH WIDE OPEN. PER NURSE, PT HAD REFUSED BIPAP. PT ON HIFLOW DUE TO NOSE PIECE BEING MORE COMFORTABLE, 4L HUMIDIFIED RUNNING. SATS HAVE STAYED ABOVE 92% THIS SHIFT. PT VS HAVE REMAINED STABLE. PT HAS BEEN SEEN BY PT/OT. PT OUT OF BED TO RECLINER CHAIR VIA LIFT THIS SHIFT AND BACK TO BED. PT TOLERATED WELL. PT HAS BEEN ALERT AND ORIENTED THIS SHIFT, HAS DENIED ANY HALLUCIONATIONS. PT RESTING FOR MUCH OF AM. DR NGUYEN HAS BEEN IN TO SEE PATIENT, STATES BELIEVING PT IS READY FOR DC TOMORROW, PT DISAGREES, HASN'T STATED WHY. CENTRAL LINE ACCESSED FOR BLOOD TODAY, FLUSHED AND SALINE LOCKED PER PROTOCOL. PT HAS RECEIVED MERREM VIA CENTRA LINE. COCCYX AND GROIN AREA COVERED WITH LOTION THIS SHIFT. AREA CLEANED UP. PT HAS BEEN RELUCTANT TO DO MUCH PHYSICAL ACTIVITY. STATES FEELING TO WEAK TO DO MUCH. STATES LAST STANDING 3 MONTHS AGO. URINE OUTPUT IN SORIA HAS REMAINED CLEAR T/O SHIFT. WILL MONITOR PT UNTIL SHIFT CHANGE.
--- NOTE | 2018-06-22 20:15 | NUR ---
PM NOTE. ASSUMED CARE OF PT APROX 1900, PT IS A&Ox4 AND ON BEDREST, PT WAS ADMITTED DUE TO TOXIC ENCEPHALOPATHY, THIS HAS GREATLY IMPROVED. PT IS ON 4L NC AT THIS TIME WITH SATS AT 92%, BIPAP IS IN THE ROOM BUT PT REFUSES. TELE INTACT, NSR IN THE 70'S PER COMPUTER HARDWARE DESIGNER, PT'S BP 147/58. 2+ EDEMA NOTED TO THE PT'S BLLE, AND BLUES. PT HAS STASIS ULCERS AND POOR BLOOD FLOW TO BLLE. L/S CLEAR T/O AND DIM IN THE BASES. BT PRESENT AND HYPOACTIVE, ABD IS SOFT AND NONTENDER TO PALP. PT DENIES ANY CHEST PAIN/PRESSURE, N/V AND BECOMES SOB WITH ACTIVITY. PT IS MORBIDLY OBESE AND STATES HE HAS NOT AMBULATED IN 3 MONTHS. PT HAS REQUESTED A SLEEP AID, HE STATES HE TAKES OXAZEPAM 30MG PO PRN AT BEDTIME, WILL CALL PROVIDER. CALL LIGHT IN REACH, BED IS LOCKED AND LOW WILL CONTINUE TO MONITOR.
--- NOTE | 2018-06-23 05:35 | NUR ---
SHIFT SUMMARY. NO ACUTE CHANGES NOTED THIS SHIFT. PT'S VS HAVE BEEN STABLE, NO EVENTS ON TELE. PT DENIES ANY CHEST PAIN/PRESSURE, N/V BUT BECOMES SOB WITH ACTIVITY IN THE BED SUCH REPOSITIONING/ROLLING. PT HAS REFUSED THE BIPAP BUT HAS BEEN ON 4 L NC WITH O2 SATS >90%. PT HAS REFUSED MOST REPOSITIONING THIS SHIFT. PT STATED THAT "I DON'T FEEL READY TO GO HOME, I DON'T WANT TO HAVE ANY INFECTION IF I GO HOME BECAUSE I KNOW I WILL JUST END UP RIGHT BACK HERE." PT ALSO STATED THAT HE WASN'T SUPPOSED TO GO HOME UNTIL "THE DOCTOR'S PLACE A MEDIPORT IN ME, BECAUSE I HAVE NEEDED TO COME TO THE HOSPTIAL SO MUCH AND I HAVE TO BE "POKED" SO MANY TIMES FOR IVS AND BLOOD DRAWS." THIS RN EDUCATED PT ON THIS PROCEDURE AND THAT IT CAN BE DONE ON AN OUT PATIENT BASIS. PT AGAIN STATED THAT HE DID NOT WANT TO GO HOME YET AND FELT THAT " YOU GUYS ARE PUSHING ME OUT BEFORE I AM READY TO GO, IF YOU DO THAT I WILL JUST END UP RIGHT BACK HERE!" PT WAS EDUCATED THAT HE IS NO LONGER A CRITICAL CARE PATIENT AND THAT HIS NEEDS COULD BE MET AT HOME WITH HOME HEALTH AND OUT PATIENT VISITS TO THE WOUND/INFUSION CLINICS. CALL LIGHT IN REACH,BED IS LOCKED AND LOW WILL CONTINUE TO MONITOR UNTIL REPORT IS GIVEN TO ONCOMING RN.
[2018-06-23 09:52] LABS: Anion Gap 6 mmol/L (6-16); Blood Urea Nitrogen 12 mg/dL (8-24); Bun/Creatinine Ratio 20.7 (12.0-20.0); CO2, Blood 34 mmol/L (21-32); Calcium, Blood 8.3 mg/dL (8.5-10.1); Chloride, Blood 103 mmol/L (98-108); Creatinine, Blood 0.58 mg/dL (0.60-1.20); Glomerular Filtration Rate >60 (60-); Glucose, Blood 149 mg/dL (70-99); Potassium, Blood 3.6 mmol/L (3.5-5.5); Sodium, Blood 143 mmol/L (136-145)
--- NOTE | 2018-06-23 10:20 | NUR ---
Assumed care of pt at approx 0700 06/23/18. Pt in no apparent
--- NOTE | 2018-06-23 12:47 | NUR ---
SHIFT NOTE ASSUMED CARE OF PT AT APPROX 0700. VSS. PT ON 4L HIFLOW O2 VIA NC. PT IN NO SIGN OF DISTRESS. UNLABORED BREATHING. PT DENIES SOB, PT DENIES CP/PRESSURE. A&OX4. CL LUMEN CHANGE X4. FLUSHED AND PATENT. PT DENIES PAIN OR TENDERNESS AT CENTERAL SITE. PT WITH REDNESS TO THE UPPER, MEDIAL ASPECT OF THE DRESSING NOTED AT SHIFT CHANGE. PER NOC NURSE, MARJORIE, REDNESS IS CONSISTANT WITH NOC SHIFT. PERM SORIA IN PLACE AND DRAINING. PT REPOSITIONED WITH CEILING LIFT AND TURNED WITH BED CONTROLS. PT C/O PAIN TO THE BLE. NORCO GIVEN AND EFFECTIVE TO BRING PAIN FROM 8 TO 6. PT REQUESTING MORE PAIN MEDS. THIS RN EDUCATED PT ON ALTERNATIVE PAIN RELIEF METHODS MEDICATION CANNOT BE GIVEN D/T TIME. DR NGUYEN IN THIS AM WITH PT. PLAN IS TO DC TOMORROW. DR NGUYEN ORDERED CONSULT WITH SURGICAL, IZABELLA KOHLER, FOR POTENTIAL MEDIPORT PLACEMENT. DR PAREKH CALLED THIS RN WITH CONCERNS OF INDICATION FOR MEDIPORT PLACEMENT. PER DR PAREKH AND DR NGUYEN DC MEDIPORT PLACEMENT. PT UPDATED THAT HE WILL NO LONGER HAS MEDIPORT PLACED. PT AGREEABLE TO NEW PLAN. PT ON TELE IN NSR. WILL CONTINUE TO MONITOR. PLEASE SEE SHIFT ASSESSMENT FOR DETAILED ASSESSMENT.
--- NOTE | 2018-06-23 18:02 | NUR ---
SHIFT SUMMARY NO ACUTE CHANGES THIS SHIFT. VSS. PT IN NO APPARENT SIGN OF DISTRESS. PLAN IS TO DC TOMORROW. PT HAD BED BATH AND SKIN ASSESSMENT DONE BY THIS RN TODAY. LOTION AND POWDER APPLIED TO SKIN. NO CHANGES IN WOUNDS NOTED ON THIS SHIFT. PT DENIES NEW ONSET PAIN. PT C/O CHRONIC PAIN MILDLY RELIEVED BY NORCO. PT WITH GOOD APPITITE, ATE 100% OF BREAKFAST, LUNCH, DINNER. PT WITHOUT BM SINCE 06/21/18. PT REQUEST NOT TO RECIEVED MEDICATED BOWEL CARE THIS SHIFT. PT WITH 2500 ML OUTPUT FROM PATENT AND CHRONIC SORIA CATH. CATH CARE PROVIDED BY THIS RN. CENTRAL LINE DRESSING CHANGED TODAY BY THIS RN. TOUGH SKIN DEVELOPING ON THE TOP OF THE DRESSING NEAR THE NECK. PT REPORTS ITCHY. SKIN REDNESS AND TOUGHNESSUNCHANGED THIS SHIFT. PT DENIES SOB, CP/PRESSURE. LUNGS CLEAR TO THE BUL AND DIMINISHED TO BILAT BASES. PT TOLERATED TURNS TODAY. WILL CONTINUE TO MONITOR THEN HANDOVER TO NOC NURSE.
--- NOTE | 2018-06-23 19:39 | NUR ---
PM NOTE. ASSUMED CARE OF PT APROX 1900, NO ACUTE CHANGES PER BEDSIDE REPORT. PT IS SCHEUDLED TO D/C TOMORROW. MEDIPORT PLACEMENT HAS BEEN D/C'D. TELE INTACT, NSR IN THE 70'S PER OIL REFINER, PT'S BP 141/77, 2+ EDEMA NOTED TO THE PT'S BLLE AND 1+ TO THE PT'S BLUE. L/S CLEAR T/O AND DIM IN THE BASES, PT IS ON 4L NC AT 94%, RR IS 20 EVEN AND UNLABORED. PT COMPLAINS OF CHEST "DISCOMFORT" RELATED TO FEELING LIKE HE HAS SPUTUM STUCK IN HIS AIR WAY. PT ENCOURAGED TO COUGH AND DEEP BREATH. BT PRESENT AND HYPERACTIVE, ABD IS SOFT AND NONTENDER TO PALP. CALL LIGHT IN REACH,BED IS LOCKED AND LOW WILL CONTINUE TO MONITOR.
--- NOTE | 2018-06-24 05:34 | NUR ---
SHIFT SUMMARY. NO ACUTE CHANGES NOTED THIS SHIFT. AT 0319 PT'S BP WAS 173/88, PT WAS MEDICATED PER EMAR WITH GOOD RESULTS, HIS CURRENT BP IS 138/71, OTHERWISE PT'S VS HAVE BEEN STABLE. PT C/O OF PAIN IN HIS LEGS TWICE THIS SHIFT AND WAS MEDICATED PER EMAR WITH GOOD RESULTES WELL. SKIN CARE AND CATH CARE WERE DONE ON PT THIS SHIFT, MEPILEX WAS PLACED IN PT'S GLUTEAL FOLD TO PROTECT CURRENT SKIN BREAKDOWN AND PREVENT FURTHER BREAKDOWN. PT DENIES ANY CHEST PAIN/PRESSURE, N/V OR ABNORMAL SOB THIS SHIFT. CALL LIGHT IN REACH, BED IS LOCKED AND LOW WILL CONTINUE TO MONITOR UNTIL REPORT IS GIVEN TO ONCOMING RN.
[2018-06-24 09:12] LABS: Anion Gap 3 mmol/L (6-16); Blood Urea Nitrogen 14 mg/dL (8-24); Bun/Creatinine Ratio 29.4 (12.0-20.0); CO2, Blood 36 mmol/L (21-32); Calcium, Blood 8.5 mg/dL (8.5-10.1); Chloride, Blood 102 mmol/L (98-108); Creatinine, Blood 0.48 mg/dL (0.60-1.20); Glomerular Filtration Rate >60 (60-); Glucose, Blood 97 mg/dL (70-99); Potassium, Blood 3.7 mmol/L (3.5-5.5); Sodium, Blood 141 mmol/L (136-145)
--- NOTE | 2018-06-24 09:32 | NUR ---
SHIFT NOTE ASSUMED CARE OF PT AT APPROX 0710. VSS. PT IN NO SIGN OF DISTRESS. PT C/O DISCOMFORT WITH REPOSITION. PT REPORT THAT THIS DISCOMFORT IS BASELINE DISCOMOFT AND NOT NEW ONSET. PT SLIGHTLY IRRITABLE BUT REDIRECTABLE AND FOLLOWS DIRECTIONS WITH REINFORCEMENT. CENTRAL LINE CLAVES CHANGED AND LINE FLUSHED WITH 20 NS. ALL LINES FLUSH SMOOTH, NO C/O PAIN PER PT. NO SIGNS OF INFECTION OR INFILTRATION. PT STABLE ON 4L NC AT 97% O2. PT WITH NO C/O SOB, DIFFICULTY BREATHING,CHEST PAIN/ CHEST PRESSURE. PT DENIES CALF PAIN OR TENDERNESS. PT EDUCATED ON DVT AND PE PREVENTION, SIGNS AND SYMPTOMS. PT CONSUMED 100% OF BREAKFAST. PLAN IS DC TODAY. AWAITING ORDERS. WILL CONTINUE TO MONITOR. PLEASE SEE SHIFT ASSESSMENT FOR DETAILED ASSESSMENT.
--- NOTE | 2018-06-24 16:08 | NUR ---
SHIFT SUMMARY/DISCHARGE UPDATE NO ACUTE CHANGES THIS SHIFT. VS REMAIN STABLE. D/C ORDERS RECIEVED. AWAITING WHEELCHAIR FROM [facility] AT THIS TIME. PT WILL BE TRANSFERED VIA [facility] WHEN WHEELCHAIR ARRIVES. PRECIPITATOR IN WITH PT GOING OVER HOME TRANSFER, WHEELCHAIR, AND OVERALL PLAN OF DISCHARGE. PT RESTING COMFORTABLY IN NO APPARANT SIGN IS DISTRESS. PT DENIES SOB, CP/PRESSURE, CALF PAIN. ALL SKIN INTEGRITY STATUS CONSISTANT. WILL CONTINUE TO MONTIOR AND UPDATE APPROPRIATE.
== END 2018-06-24 18:35 | disposition home health service (06) | DRG 698 ==
LOC: ER 17:58 → MEDS 22:57 → ICUE 22:57 → PCU 22:57 → ICUE 23:05 → MEDS 23:07 → ICUE 06-17 10:35 → PCU 06-21 15:18
PROVIDERS: Emergency Medicine; Hospitalist; Internal Medicine Critical Care Medicine; Internal Medicine Pulmonary Disease; Nurse Practitioner Acute Care; ADMIT Family Medicine
PROC: 5A09457 Assistance with Respiratory Ventilation, 24-96 Consecutive Hours, Continuous Positive Airway Pressure (ICD-10-PCS; 2018-06-16)
PROC: 05H533Z Insertion of Infusion Device into Right Subclavian Vein, Percutaneous Approach (ICD-10-PCS; principal; 2018-06-17)
DX: T83.511A Infection and inflammatory reaction due to indwelling urethral catheter, initial encounter (principal); A41.9 Sepsis, unspecified organism; R65.20 Severe sepsis without septic shock; G92 Toxic encephalopathy; J96.22 Acute and chronic respiratory failure with hypercapnia; J18.9 Pneumonia, unspecified organism; J96.21 Acute and chronic respiratory failure with hypoxia; I26.99 Other pulmonary embolism without acute cor pulmonale; E66.2 Morbid (severe) obesity with alveolar hypoventilation; E87.2 Acidosis; I50.32 Chronic diastolic (congestive) heart failure; Z68.44 Body mass index [BMI] 60.0-69.9, adult; L97.409 Non-pressure chronic ulcer of unspecified heel and midfoot with unspecified severity; L97.429 Non-pressure chronic ulcer of left heel and midfoot with unspecified severity; J44.0 Chronic obstructive pulmonary disease with (acute) lower respiratory infection; I11.0 Hypertensive heart disease with heart failure; E87.6 Hypokalemia; G47.33 Obstructive sleep apnea (adult) (pediatric); G89.4 Chronic pain syndrome; K21.9 Gastro-esophageal reflux disease without esophagitis; Z86.711 Personal history of pulmonary embolism; I87.2 Venous insufficiency (chronic) (peripheral); N39.0 Urinary tract infection, site not specified; Z91.19 Patient's noncompliance with other medical treatment and regimen; B96.5 Pseudomonas (aeruginosa) (mallei) (pseudomallei) as the cause of diseases classified elsewhere; Z74.01 Bed confinement status; Z99.81 Dependence on supplemental oxygen; Z87.891 Personal history of nicotine dependence
CPT/HCPCS: 36415; 36600; 71045; 80048; 80053; 80069; 80202; 81001; 82803; 82947; 83605; 83735; 84145; 84484; 85025; 85027; 87040; 87077; 87086; 87186; 87486; 87581; 87633; 87798; 93005; 93010; 94640; 94660; 94664; 94667; 94760; 94762; 94770; 96361; 96365; 96366; 96368; 97110; 97162; 97166; 97530; 98960; 99285-25; J0360; J2185; J2405; J2543; J3010; J3370; J3480; J7030; J7040; J7050; J7060

== ENCOUNTER 2018-06-28 11:34 | Emergency (ER) | payer MEDICARE, OTHER ==
[~2018-06-28] VITALS: Ht 170.2 cm; Wt 181.4 kg
[~2018-06-28 11:34] MED LIST changes: +Ashwagandha PO; +HYDHCL25 PO; +METH5 PO; +Oxazepam30 MG PO; +PRED10 PO
[2018-06-28 12:20] LABS: Source, Urine Catheter
[2018-06-28 12:29] LABS: Bilirubin, Urine Neg (Neg); Blood, Urine 3+ (Neg); Glucose Qualitative, Urine Neg (Neg); Ketones, Urine Neg (Neg); Leukocyte Esterase, Urine 1+ (Neg); Nitrite, Urine Neg (Neg); Protein, Urine Neg (Neg); Urobilinogen, Urine NORM (Normal); pH, Urine 6.5 (5.0-8.0)
[2018-06-28 12:44] LABS: Appearance, Urine Clear (Clear); Bacteria Rare /hpf; Color, Urine Pale Yellow (P-Yellow); Squamous Epithelial Cells Not Seen /hpf (Few)
--- NOTE | 2018-06-28 13:40 | NUR ---
Received call from Pt's ED nurse Darion. Darion requests a discussion with Pt to consider different insurance that assists with transportation cost. Instructed Darion care aid will be contacted. Called and spoke with Clarence regarding request. Clarence reports that she will make a visit with Pt. Pt resting on gurney upon arrival. Pt reports 8/10 pain in his legs. Pt also reports feeling anxious starting from the middle of the afternoon through the night. Suggested to Pt to have discussion with his PCP regarding his leg pain and anxiety. Educated Pt on distraction technique to help with pain and anxiety. Pt expresses frustration regarding his weight as well. Listened as he discussed frustrations regarding his quality of life. He reports that he continues to gain weight and his weight is the reason for being bed bound. Suggested for Pt to talk with a manager utilization for education on healthy foods to eat to help manage weight. No other concerns reported by Pt. Will remain available.
== END 2018-06-28 13:00 | disposition home or self-care (01) ==
LOC: ER 11:34
PROVIDERS: Emergency Medicine
DX: T83.098A Other mechanical complication of other urinary catheter, initial encounter (principal); I11.0 Hypertensive heart disease with heart failure; I50.9 Heart failure, unspecified; K21.9 Gastro-esophageal reflux disease without esophagitis; Z79.899 Other long term (current) drug therapy; Z79.82 Long term (current) use of aspirin
CPT/HCPCS: 81001; 87086; 99283

== ENCOUNTER → 2018-07-12 | Outpatient (CLI) | payer MEDICARE, OTHER ==
[2018-07-12 18:34] LABS: Bilirubin, Urine Neg (Neg); Blood, Urine 5+ (Neg); Glucose Qualitative, Urine Neg (Neg); Ketones, Urine Neg (Neg); Leukocyte Esterase, Urine 1+ (Neg); Nitrite, Urine Pos (Neg); Protein, Urine Neg (Neg); Urobilinogen, Urine NORM (Normal)
[2018-07-12 18:49] LABS: Appearance, Urine Clear (Clear); Color, Urine Yellow (P-Yellow)
[2018-07-12 18:50] LABS: Bacteria Many /hpf; Calcium Oxalate Crystals Mod /hpf; Mucus Light (0-Heavy); Red Blood Cells, Urine 50-100 /hpf (0-2); Squamous Epithelial Cells Not Seen /hpf (Few)
== END | disposition home or self-care (01) ==
LOC: LAB SHORT 17:22 → LAB 17:22
PROVIDERS: Family Medicine
DX: N39.0 Urinary tract infection, site not specified (principal)
CPT/HCPCS: 81001

== ENCOUNTER → 2018-07-14 | Outpatient (CLI) | payer MEDICARE, OTHER ==
[2018-07-14 19:45] LABS: BASOPHILS ABSOLUTE AUTO 0.04 K/mm3 (0.00-0.23); BASOPHILS PERCENT AUTO 0 % (0-2); EOSINOPHILS ABSOLUTE AUTO 0.54 K/mm3 (0.00-0.68); EOSINOPHILS PERCENT AUTO 4 % (0-6); Hematocrit 41.5 % (37.0-53.0); IMMATURE GRAN ABSOLUTE AUTO 0.06 K/mm3 (0.00-0.10); IMMATURE GRAN PERCENT AUTO 0 % (0-1); LYMPHOCYTES ABSOLUTE AUTO 1.51 K/mm3 (0.84-5.20); LYMPHOCYTES PERCENT AUTO 10 % (21-46); MONOCYTES ABSOLUTE AUTO 0.86 K/mm3 (0.16-1.47); MONOCYTES PERCENT AUTO 6 % (4-13); Mean Corpuscular HGB 29.1 pg (26.0-34.0); Mean Corpuscular HGB Conc 31.3 g/dL (31.5-36.5); Mean Corpuscular Volume 93 fL (80-100); Mean Platelet Volume 9.3 fL (9.1-12.4); NEUTROPHILS ABSOLUTE AUTO 11.81 K/mm3 (1.96-9.15); NEUTROPHILS PERCENT AUTO 80 % (41-73); Platelet Count 288 K/mm3 (150-400); RDW Coefficient Variation 14.4 % (11.7-14.2); RDW Standard Deviation 48.2 fL (35.1-46.3); Red Blood Cell Count 4.47 M/mm3 (4.30-5.90); White Blood Cell Count 14.82 K/mm3 (4.00-11.30)
[2018-07-14 19:49] LABS: Alanine Aminotransfer (ALT/SGP 19 U/L (12-78); Albumin, Blood 3.1 g/dL (3.4-5.0); Albumin/Globulin Ratio 0.7 (0.8-1.8); Alk Phos 105 U/L (50-136); Anion Gap 3 mmol/L (6-16); Aspartate Aminotrans (AST/SGOT 19 U/L (12-37); Bilirubin, Total 0.3 mg/dL (0.1-1.0); Blood Urea Nitrogen 17 mg/dL (8-24); Bun/Creatinine Ratio 31.3 (12.0-20.0); CO2, Blood 45 mmol/L (21-32); Calcium, Blood 8.7 mg/dL (8.5-10.1); Chloride, Blood 93 mmol/L (98-108); Creatinine, Blood 0.54 mg/dL (0.60-1.20); Globulin, Blood 4.2 g/dL (2.2-4.0); Glomerular Filtration Rate >60 (60-); Glucose, Blood 109 mg/dL (70-99); Potassium, Blood 3.1 mmol/L (3.5-5.5); Sodium, Blood 141 mmol/L (136-145); Total Protein, Blood 7.3 g/dL (6.4-8.2)
== END | disposition home or self-care (01) ==
LOC: LAB SHORT 19:26 → LAB 19:26
PROVIDERS: Family Medicine
DX: N39.0 Urinary tract infection, site not specified (principal); J44.0 Chronic obstructive pulmonary disease with (acute) lower respiratory infection
CPT/HCPCS: 80053; 85025

== ENCOUNTER → 2018-07-21 | Outpatient (CLI) | payer MEDICARE, OTHER ==
[2018-07-21 18:05] LABS: Hemoglobin 12.7 g/dL (13.5-17.5); Mean Corpuscular HGB Conc 31.8 g/dL (31.5-36.5); Mean Corpuscular Volume 91 fL (80-100); Mean Platelet Volume 9.9 fL (9.1-12.4); Platelet Count 353 K/mm3 (150-400); RDW Coefficient Variation 14.3 % (11.7-14.2); RDW Standard Deviation 48.1 fL (35.1-46.3); Red Blood Cell Count 4.38 M/mm3 (4.30-5.90); White Blood Cell Count 14.26 K/mm3 (4.00-11.30)
[2018-07-21 19:26] LABS: Alanine Aminotransfer (ALT/SGP 19 U/L (12-78); Albumin, Blood 3.1 g/dL (3.4-5.0); Albumin/Globulin Ratio 0.7 (0.8-1.8); Alk Phos 106 U/L (50-136); Anion Gap 7 mmol/L (6-16); Aspartate Aminotrans (AST/SGOT 14 U/L (12-37); Bilirubin, Total 0.2 mg/dL (0.1-1.0); Blood Urea Nitrogen 22 mg/dL (8-24); Bun/Creatinine Ratio 32.4 (12.0-20.0); CO2, Blood 42 mmol/L (21-32); Calcium, Blood 8.9 mg/dL (8.5-10.1); Chloride, Blood 90 mmol/L (98-108); Creatinine, Blood 0.68 mg/dL (0.60-1.20); Globulin, Blood 4.5 g/dL (2.2-4.0); Glomerular Filtration Rate >60 (60-); Glucose, Blood 176 mg/dL (70-99); Potassium, Blood 2.4 mmol/L (3.5-5.5); Sodium, Blood 139 mmol/L (136-145); Total Protein, Blood 7.6 g/dL (6.4-8.2)
== END | disposition home or self-care (01) ==
LOC: LAB 17:38 → LAB SHORT 17:38
PROVIDERS: Family Medicine
DX: J44.0 Chronic obstructive pulmonary disease with (acute) lower respiratory infection (principal); N39.0 Urinary tract infection, site not specified
CPT/HCPCS: 80053; 85027

== ENCOUNTER 2018-07-25 19:17 | Emergency (ER) | payer MEDICARE, OTHER ==
[~2018-07-25] VITALS: Ht 172.7 cm; Wt 181.4 kg
== END 2018-07-25 21:10 | disposition home or self-care (01) ==
LOC: ER 19:17
DX: L89.893 Pressure ulcer of other site, stage 3 (principal); I83.028 Varicose veins of left lower extremity with ulcer other part of lower leg; I83.018 Varicose veins of right lower extremity with ulcer other part of lower leg; E66.01 Morbid (severe) obesity due to excess calories; I10 Essential (primary) hypertension; J44.9 Chronic obstructive pulmonary disease, unspecified; Z79.82 Long term (current) use of aspirin; Z79.899 Other long term (current) drug therapy; Z87.891 Personal history of nicotine dependence; Z68.44 Body mass index [BMI] 60.0-69.9, adult
CPT/HCPCS: 36415; 87070; 87075; 87077; 87147; 87186; 87205; 99283

== ENCOUNTER → 2018-07-25 | Outpatient (CLI) | payer MEDICARE, OTHER ==
[2018-07-25 19:36] LABS: Alanine Aminotransfer (ALT/SGP 16 U/L (12-78); Albumin/Globulin Ratio 0.7 (0.8-1.8); Alk Phos 98 U/L (50-136); Anion Gap 3 mmol/L (6-16); Aspartate Aminotrans (AST/SGOT 13 U/L (12-37); Bilirubin, Total 0.2 mg/dL (0.1-1.0); Blood Urea Nitrogen 16 mg/dL (8-24); Bun/Creatinine Ratio 27.2 (12.0-20.0); CO2, Blood 42 mmol/L (21-32); Chloride, Blood 97 mmol/L (98-108); Creatinine, Blood 0.59 mg/dL (0.60-1.20); Globulin, Blood 4.6 g/dL (2.2-4.0); Glomerular Filtration Rate >60 (60-); Glucose, Blood 133 mg/dL (70-99); Potassium, Blood 3.1 mmol/L (3.5-5.5); Sodium, Blood 142 mmol/L (136-145); Total Protein, Blood 7.6 g/dL (6.4-8.2)
== END | disposition home or self-care (01) ==
LOC: LAB SHORT 18:17 → LAB 18:17
PROVIDERS: Family Medicine
DX: J44.0 Chronic obstructive pulmonary disease with (acute) lower respiratory infection (principal); J96.12 Chronic respiratory failure with hypercapnia
CPT/HCPCS: 80053

== ENCOUNTER 2018-08-25 12:31 | Inpatient (IN) | payer MEDICARE, OTHER ==
[~2018-08-25] VITALS: Ht 177.8 cm; Wt 184.4 kg
[~2018-08-25 12:31] MED LIST changes: +ATEN100 PO; +Mobic15 MG PO; +Prinivil10 MG PO
[2018-08-25 14:40] LABS: BASOPHILS ABSOLUTE AUTO 0.06 K/mm3 (0.00-0.23); BASOPHILS PERCENT AUTO 0 % (0-2); EOSINOPHILS ABSOLUTE AUTO 0.59 K/mm3 (0.00-0.68); EOSINOPHILS PERCENT AUTO 4 % (0-6); Hematocrit 40.1 % (37.0-53.0); Hemoglobin 12.5 g/dL (13.5-17.5); IMMATURE GRAN ABSOLUTE AUTO 0.05 K/mm3 (0.00-0.10); IMMATURE GRAN PERCENT AUTO 0 % (0-1); LYMPHOCYTES ABSOLUTE AUTO 1.07 K/mm3 (0.84-5.20); LYMPHOCYTES PERCENT AUTO 8 % (21-46); MONOCYTES ABSOLUTE AUTO 1.04 K/mm3 (0.16-1.47); MONOCYTES PERCENT AUTO 8 % (4-13); Mean Corpuscular HGB 29.1 pg (26.0-34.0); Mean Corpuscular HGB Conc 31.2 g/dL (31.5-36.5); Mean Corpuscular Volume 94 fL (80-100); NEUTROPHILS ABSOLUTE AUTO 10.93 K/mm3 (1.96-9.15); NEUTROPHILS PERCENT AUTO 80 % (41-73); RDW Coefficient Variation 14.6 % (11.7-14.2); RDW Standard Deviation 50.1 fL (35.1-46.3); Red Blood Cell Count 4.29 M/mm3 (4.30-5.90); White Blood Cell Count 13.74 K/mm3 (4.00-11.30)
[2018-08-25 14:42] LABS: Mean Platelet Volume 9.9 fL (9.1-12.4); Platelet Count 217 K/mm3 (150-400)
[2018-08-25 15:03] LABS: Alanine Aminotransfer (ALT/SGP 14 U/L (12-78); Albumin/Globulin Ratio 0.6 (0.8-1.8); Alk Phos 99 U/L (50-136); Anion Gap 1 mmol/L (6-16); Aspartate Aminotrans (AST/SGOT 31 U/L (12-37); Bilirubin, Total 0.5 mg/dL (0.1-1.0); Blood Urea Nitrogen 15 mg/dL (8-24); Bun/Creatinine Ratio 24.6 (12.0-20.0); CO2, Blood 43 mmol/L (21-32); Calcium, Blood 8.6 mg/dL (8.5-10.1); Chloride, Blood 95 mmol/L (98-108); Creatinine, Blood 0.61 mg/dL (0.60-1.20); Globulin, Blood 4.7 g/dL (2.2-4.0); Glomerular Filtration Rate >60 (60-); Glucose, Blood 117 mg/dL (70-99); Potassium, Blood 4.7 mmol/L (3.5-5.5); Sodium, Blood 139 mmol/L (136-145); Total Protein, Blood 7.7 g/dL (6.4-8.2)
[2018-08-25] MEDS ORDERED: CITA20 PO (15:52)
[2018-08-25] MEDS ORDERED: TUDORZA PRESS400 MCG INH (15:53)
[2018-08-25] MEDS ORDERED: Augmentin 875-1 EACH PO (15:53)
[2018-08-25] MEDS ORDERED: DOCU100 PO (15:54)
[2018-08-25] MEDS ORDERED: ALBU90OI61 INH (15:55)
[2018-08-25] MEDS ORDERED: METO2.5 PO (15:56)
[2018-08-25] MEDS ORDERED: BUDE6HFA INH (15:56)
[2018-08-25] MEDS ORDERED: AMLO10 PO (15:57)
[2018-08-25] MEDS ORDERED: ZALE10 PO (16:00)
[2018-08-25] MEDS ORDERED: POTCHL20ER PO (16:00)
[2018-08-25 16:50] LABS: Free Thyroxine 1.1 ng/dL (0.70-1.60)
[2018-08-25 16:52] LABS: Triiodothyronine, Free 2.63 pg/mL (2.18-3.98)
--- NOTE | 2018-08-25 17:45 | NUR ---
ADMIT TO ICU, ROOM 13, VIA GUERNEY FROM ER. PATIENT TRANSFERRED FROM CART TO "BIG BOY" BED VIA CEILING LIFT. PATIENTS' WEIGHT FOR ADMISSION IS 390#. SLEEPY BUT ROUSES TO MODERATELY LOUD VERBAL STIMULI OR TACTILE STIMULI; AWAKENS AND ABLE TO ANSWER QUESTIONS BUT DRIFTS OFF TO SLEEP WHEN UNDISTURBED. TOO SLEEPY TO ANSWER ADMISSION HX QUESTIONS OR REVIEW MEDS. OXYGEN AT 4L/MIN VIA NC AND BIOX LOW TO MID 90'S. REFUSED BIPAP IN ER; MOUTH BREATHER AND APPEARS TO HAVE SOME SLEEP APNEA ISSUES. CURRENTLY NO APNEIC INCIDENT NOTED. WILL CALL DR. ELLISON TO INFORM HER OF CONSULT PER HOSP. REQUEST; PATIENT REASONABLY STABLE AT THIS TIME. RR 20-25/MIN AND BP 130-140'S SYSTOLIC; HR 70-80/MIN. HOME HEALTH FOLLOWS PATIENT AND VISITS MONTHLY FOR SORIA CATH CHANGES; PATIENT STATES THEY CHANGED CATHETER RECENTLY. UA SPECIMEN SENT TO LAB FROM CURRENT CATHETER. THIS RN WILL CHANGE CATHETER PER HOSPITAL PROTOCOL AND SEND A SECOND URINE SAMPLE POST NEW CATH. PLACEMENT. SENT TO LAB
--- NOTE | 2018-08-25 18:30 | NUR ---
PATIENT SLEEPING; WILL REPORT TO ONCOMING RN. LE'S WITH 'ELEPHANT-TYPE' SKIN; NO NOTED OPENED SKIN AREA. BUTTOCKS AND LOWER BACK REGION REDDENED BUT NO OPENED SKIN; APPEARS LIKE A YEAST RASH?. NEW SORIA (#16 COUDE) PLACED; BLADDER PRETTY EMPTY WILL HAVE NEXT SHIFT SEND SPECIMEN WHEN ENOUGH URINE HAS COLLECTED. IVF OF NS INFUSING AT 75ML/HR. PATIENT NPO STATUS FOR NOW. T/C TO TO INFORM HER OF CONSULT; SHE WILL COME IN TOMORROW TO EVAL; SOONER IF STATUS DECLINES, ETC. WILL REPORT TO ONCOMING RN.
[2018-08-25 18:33] LABS: Source, Urine Catheter
[2018-08-25 18:37] LABS: Bilirubin, Urine Neg (Neg); Blood, Urine 5+ (Neg); Glucose Qualitative, Urine Neg (Neg); Ketones, Urine 1+ (Neg); Leukocyte Esterase, Urine 1+ (Neg); Nitrite, Urine Neg (Neg); Protein, Urine 1+ (Neg); Specific Gravity, Urine 1.015 (1.003-1.022); Urobilinogen, Urine NORM (Normal); pH, Urine 6.5 (5.0-8.0)
[2018-08-25 19:06] LABS: Appearance, Urine Hazy (Clear); Color, Urine Yellow (P-Yellow)
[2018-08-25 19:08] LABS: Bacteria Few /hpf; Red Blood Cells, Urine 50-100 /hpf (0-2); Squamous Epithelial Cells Not Seen /hpf (Few)
--- NOTE | 2018-08-25 19:40 | NUR ---
ASSUMED CARE BEDSIDE REPORT RECIEVED. PT IS RESTING QUIETLY UPON ENTERING ROOM. PT AWAKENS TO VERBAL STIMULI AND BECOMES AGITATED/LABILE MOOD. PT IS COOPERATIVE AND CALM AT TIMES, THEN EASILY AGITATED. PT ALERT, ORIENTED, AND ABLE TO ANSWER QUESTIONS APPROPRIATELY, THEN QUICKLY BECOMES SOMNOLENT. VITAL SIGNS STABLE WITH PT ON 4L O2 NC AT THIS TIME. NS INFUSING AT 75 ML/HR. PT WITH CHRONIC SORIA IN PLACE, CHANGED UPON ADMISSION. UA COLLECTED AND SENT AT THIS TIME. PT WITH WOUND TO RIGHT LOWER EXTREMITY. WOUND CLEANSED AND NEW DRESSINGS APPLIED AT THIS TIME. SEE PHOTOS IN CHART FOR WOUND INFO. PT MORBIDLY OBESE, LIFT USED TO TURN PT, PT ABLE TO MOVE UPPER EXTREMITIES TO ASSIST. WILL CONTINUE TO MONITOR.
[2018-08-25 20:59] LABS: Source, Urine Catheter
[2018-08-25 21:13] LABS: Bilirubin, Urine Neg (Neg); Blood, Urine 3+ (Neg); Glucose Qualitative, Urine Neg (Neg); Ketones, Urine Neg (Neg); Leukocyte Esterase, Urine 1+ (Neg); Nitrite, Urine Neg (Neg); Protein, Urine 2+ (Neg); Urobilinogen, Urine NORM (Normal)
[2018-08-25 21:20] LABS: Appearance, Urine Hazy (Clear); Color, Urine Yellow (P-Yellow)
[2018-08-25 21:22] LABS: Amorphous Light (0-Heavy); Bacteria Mod /hpf; Mucus Light (0-Heavy); Squamous Epithelial Cells Rare /hpf (Few)
--- NOTE | 2018-08-26 00:05 | NUR ---
RESPIRATORY DECOMPENSATION PT HAS CONTINUED TO NEED HIGHER O2 REQUIREMENTS. PT PLACED ON BIPAP 22/10 WITH 10L O2 BLEED IN. PT THRASHING IN BED AND VIGOROUSLY SHAKING HEAD SIDE TO SIDE. PT TORE A HOLE IN BIPAP TUBING AND SPO2 DROPPED INTO 70'S. NEW BIPAP TUBING PLACED PER RT, PT WITH LONG RECOVERY TIME AT 15L O2 BLEED IN TO GET SPO2 >88%. O2 TITRATED BACK DOWN TO 10L BLEED IN AND PT IS RESTING QUIETLY AT THIS TIME. WILL CONTINUE TO MONITOR.
[2018-08-26 03:33] LABS: BASOPHILS ABSOLUTE AUTO 0.04 K/mm3 (0.00-0.23); BASOPHILS PERCENT AUTO 0 % (0-2); EOSINOPHILS ABSOLUTE AUTO 0.58 K/mm3 (0.00-0.68); EOSINOPHILS PERCENT AUTO 5 % (0-6); Hematocrit 38.8 % (37.0-53.0); Hemoglobin 11.9 g/dL (13.5-17.5); IMMATURE GRAN ABSOLUTE AUTO 0.05 K/mm3 (0.00-0.10); IMMATURE GRAN PERCENT AUTO 0 % (0-1); LYMPHOCYTES ABSOLUTE AUTO 1.41 K/mm3 (0.84-5.20); LYMPHOCYTES PERCENT AUTO 12 % (21-46); MONOCYTES ABSOLUTE AUTO 0.99 K/mm3 (0.16-1.47); MONOCYTES PERCENT AUTO 8 % (4-13); Mean Corpuscular HGB 29.2 pg (26.0-34.0); Mean Corpuscular HGB Conc 30.7 g/dL (31.5-36.5); Mean Corpuscular Volume 95 fL (80-100); NEUTROPHILS ABSOLUTE AUTO 8.72 K/mm3 (1.96-9.15); NEUTROPHILS PERCENT AUTO 74 % (41-73); Platelet Count 218 K/mm3 (150-400); RDW Coefficient Variation 14.6 % (11.7-14.2); RDW Standard Deviation 51.1 fL (35.1-46.3); Red Blood Cell Count 4.08 M/mm3 (4.30-5.90); White Blood Cell Count 11.79 K/mm3 (4.00-11.30)
[2018-08-26 03:52] LABS: Alanine Aminotransfer (ALT/SGP 11 U/L (12-78); Albumin, Blood 2.7 g/dL (3.4-5.0); Albumin/Globulin Ratio 0.6 (0.8-1.8); Alk Phos 91 U/L (50-136); Anion Gap 3 mmol/L (6-16); Aspartate Aminotrans (AST/SGOT 14 U/L (12-37); Bilirubin, Total 0.3 mg/dL (0.1-1.0); Blood Urea Nitrogen 15 mg/dL (8-24); Bun/Creatinine Ratio 26.4 (12.0-20.0); CO2, Blood 43 mmol/L (21-32); Calcium, Blood 8.6 mg/dL (8.5-10.1); Chloride, Blood 97 mmol/L (98-108); Creatinine, Blood 0.57 mg/dL (0.60-1.20); Globulin, Blood 4.3 g/dL (2.2-4.0); Glomerular Filtration Rate >60 (60-); Glucose, Blood 97 mg/dL (70-99); Potassium, Blood 3.5 mmol/L (3.5-5.5); Sodium, Blood 143 mmol/L (136-145)
--- NOTE | 2018-08-26 06:17 | NUR ---
SHIFT SUMMARY PT DOING MUCH BETTER THIS MORNING. PT SOMNOLENT FOR MOST OF THE INVOICE CONTROL CLERK, BUT IS MUCH MORE AWAKE AT THIS TIME. PT IS ALERT, ORIENTED, AND ANSWERING QUESTIONS APPROPRIATELY AT THIS TIME. PT HAS DENIED PAIN. PT WORE BIPAP WITH 10 02 BLEED IN FOR MOST OF THE SHIFT. PT ON 12L O2 NC AT THIS TIME. VITAL SIGNS STABLE. NS INFUSING AT 75 ML/HR. PT WITH SORIA IN PLACE WITH DECREASED URINE OUTPUT. WOUNDS REMAIN UNCHANGED. WILL CONTINUE TO MONITOR AND REPORT OFF TO ONCOMING RN.
--- NOTE | 2018-08-26 09:36 | NUR ---
0730: CARE ASSUMED, PT FINISHED USING BEDPAN, ASSISTED WITH PERICARE. ASSESSMENT COMPLETED, SPO2 94% ON 6L/NC AT THIS TIME. PT AWAKE, ALERT AND ORIENTED X3, UNSURE OF DATE, APPROPRIATE AND ABLE TO ANSWER QUESTIONS. LS DIMINISHED T/O, NO COARSE BREATH SOUNDS NOTED AT THIS TIME. PT C/O 7/10 HIP AND LE PAIN, FALLS ASLEEP QUICKLY AFTER ASSESSMENT, NOT MEDICATED FOR PAIN AT THIS TIME. NS INFUSING AT 75ML/HR. DRSG TO RLE CDI, BUTTOCKS EXCORIATED, WILL APPLY CALMOSEPTINE INTERMITTENTLY. 0800: PT SLEEPING, SPO2 DESAT TO 87%, BIPAP RESUMED AT 22/10 WITH 10L O2 BLEED IN, SPO2 INUREASED TO 91%. 0945: PT REPOSITIONED IN BED WITH 1 PERSON ASSIST, ABLE TO MOVE SELF FAIRLY WELL WITH VERBAL DIRECTION. PT CONTINUES TO REST, VSS, SPO2 95% ON BIPAP, SETTINGS UNCHANGED.
--- NOTE | 2018-08-26 10:14 | NUR ---
DR. MICHELLE AT BEDSIDE TO ASSESS.
--- NOTE | 2018-08-26 12:04 | NUR ---
1200: PT REPOSITIONED FOR LUNCH, BIPAP REMOVED. SPO2 92-94% ON 6L/NC. PT AWAKE, ALERT AND ORIENTED, LUNCH TRAY GIVEN, TOLERATING WELL. PT DENIES OTHER NEEDS AT THIS TIME.
--- NOTE | 2018-08-26 13:43 | NUR ---
PT TOLERATED LUNCH WELL, NO DESATURATIONS WHILE EATING. PT REPOSITIONED AFTER LUNCH, CALMOSEPTINE APPLIED TO BUTTOCKS, PT MAKES INAPPROPRIATE COMMENTS DURING CARES, COMMENTS NOT ACKNOWLEDGED. PT NOW SLEEPING, SPO2 95% ON 6L/NC, BIPAP LEFT OFF AT THIS TIME. OTHER VSS.
--- NOTE | 2018-08-26 14:39 | NUR ---
DR. ASTORGA AT BEDSIDE TO ASSESS. PT RESTING IN BED, VSS, SPO2 95% ON 6L/NC.
--- NOTE | 2018-08-26 15:27 | NUR ---
PT C/O 10/10 PAIN TO BUTTOCKS, MEDICATED WITH DILAUDID PER ORDERS. SPO2 95% ON NC 6L, ALL VSS.
--- NOTE | 2018-08-26 16:53 | NUR ---
163: BEDBATH GIVEN, LINENES CHANGED, SKIN PROTECTANT TO LE'S, CALMOSEPTINE TO BUTTOCKS. BUTTOCKES REMAIN VERY SORE AND EXCORIATED, OOZING OF SEROSANGUINEOUS FLUID FROM OPEN AREAS OF BUTTOCKS. PT REPOSITIONED, REPORTS HE IS COMFORTABLE, DENIES NEEDS. STATUS CHANGED TO PCU PER DR. ASTORGA.
--- NOTE | 2018-08-26 18:18 | NUR ---
PT REPOSITIONED IN BED AT THIS TIME, VSS, SPO2 94% ON 6L/NC. SPO2 REMAINS STABLE ON NC WHILE PT AWAKE, PT REQUIRES BIPAP WHILE SLEEPING TO MAINTAIN O2 SAT. VSS T/O SHIFT, PT REMAINS ALERT AND ORIENTED, IS IRRITABLE BUT COOPERATIVE WITH CARE, MAKES SEXUALLY INAPPROPRIATE COMMENTS TO STAFF AT TIMES. LS CLEAR T/O SHIFT. SORIA REMAINS PATENT, URINE CLEAR YELLOW, HR SINUS 70'S - 90'S.
--- NOTE | 2018-08-26 19:50 | NUR ---
ASSUMING CARE OF PT AT THIS TIME. PT REPORT RECEIVED VIA TELEPHONE WITH EDUIN PATIÑO. WAITING FOR PT TRANSPORT FROM ICU TO PCU AT THIS TIME.
--- NOTE | 2018-08-26 20:00 | NUR ---
PT TRANSFERRED FROM ICU TO PCU AT THIS TIME.
--- NOTE | 2018-08-26 20:10 | NUR ---
ASSESSMENT PT CALM, OCC COOPERATIVE, LABILE, IRRITABLE, A&O X4, TALKS AND ANSWERS QUESTIONS APPRIOPRIATELY, SPONT OPENS EYES. SENSATION INTACT BUE'S. HX CHRONIC NEUROPATHY BLE'S. N/T BLE'S. PT GABRIEL. GENEARLIZED WEAKNESS NOTED. PT C/O GENERALIZED WEAKNESS FROM BASELINE. PT STATES PAIN/DISCOMFORT IN BILAT HIPS AND BLE'S IS TOLERABLE AFTER ADMINISTERING DILAUDID PRN / UTILIZING NONPHARM METHODS. LUNGS CLEAR T/O, DIMINISHED MIDDLE AND LOWER LOBES. PT ON 6L NC. OXY SAT >90%. RR 18. DENIES SOB AT REST. DYSPNEA ON EXERTION. BIPAP 22/10 WITH 10L OXYGEN AT NIGHT. OCC NONPRODUCTIVE COUGH. AFEBRILE. NSR WITH FIRST DEGREE AVHB PER PULLEY MAINTAINER. HR 90'S. BP STABLE - SEE VS FS. STRONG RADIAL PULSES. FAINT TIBIAL AND PEDAL PULSES. WARM, PINK, DRY SKIN. NON-PITTING EDEMA BLE'S. ACTIVE BT X4 QUADRANTS. ABD MOD DIST, SOFT, NONTENDER. NO N/V. NO BM. PT TOLERATING PO FLUIDS AND CARDIAC DIET. CHRONIC F/C IN PLACE: CLEAR, YELLOW URINE. PIV X2 - SL.
--- NOTE | 2018-08-26 20:17 | NUR ---
ASSUMED CARE OF PT AT 1915. REPORT RECEIVED. PT HAS SINCE HAD REPORT CALLED TO EDUIN FISCHER FOR PT TRANSFER TO ROOM PCU 4. REPORT GIVEN IN SBAR FASHION. ALLOWED FOR QUESTIONS. PT HAS BEEN MEDICATED WITH 2 MG DILAUDID PO FOR COMPLAINTS OF LEG AND BUTTOCKS PAIN OF 8 ON SCALE 1/10. PT STATES THAT HE JUST TAKES ASPIRIN AND SUFFERS AT HOME FOR SAME PAIN. VERBALIZES THAT HE WOULD NEED TO GO TO [place] BECAUSE OF A PAIN CONTRACT TO GET PAIN MEDICATIONS AT HOME INCREASED. PT TRANSFERS TO PCU 4 IN [facility] BED. PT WAS AWARE AND ACCEPTING OF TRANSFER. PT LEAVES ICU AT 2004.
--- NOTE | 2018-08-26 23:41 | NUR ---
DR. VALENTINO / PAIN PT C/O PAIN COCCYX, HIPS, AND BLE'S. USING BED ROTATION. PT REFUSES REPOSITIONING WITH PILLOWS. DILAUDID ADMINSITERED. PT C/O PAIN IS NOT TOLERABLE AFTER ADMINISTERING DILAUDID PER PHYSICIAN'S ORDER. CALLED DR. VALENTINO AT THIS TIME. UPDATED DR. VALENTINO OF PT'S STATUS AND PAIN. DR. VALENTINO ORDERED TYLENOL PRN. WAITING FOR VERIFICATION OF MEDICATION FROM PHARMACY AT THIS TIME.
[2018-08-27 04:01] LABS: Hematocrit 35.7 % (37.0-53.0); Hemoglobin 11.4 g/dL (13.5-17.5); Mean Corpuscular HGB 29.5 pg (26.0-34.0); Mean Corpuscular HGB Conc 31.9 g/dL (31.5-36.5); Platelet Count 215 K/mm3 (150-400); RDW Coefficient Variation 14.3 % (11.7-14.2); Red Blood Cell Count 3.87 M/mm3 (4.30-5.90); White Blood Cell Count 11.13 K/mm3 (4.00-11.30)
[2018-08-27 04:02] LABS: Mean Corpuscular Volume 92 fL (80-100)
[2018-08-27 04:26] LABS: Anion Gap 4 mmol/L (6-16); Blood Urea Nitrogen 17 mg/dL (8-24); Bun/Creatinine Ratio 27.5 (12.0-20.0); CO2, Blood 41 mmol/L (21-32); Calcium, Blood 8.8 mg/dL (8.5-10.1); Chloride, Blood 94 mmol/L (98-108); Creatinine, Blood 0.62 mg/dL (0.60-1.20); Glomerular Filtration Rate >60 (60-); Glucose, Blood 139 mg/dL (70-99); Potassium, Blood 3.3 mmol/L (3.5-5.5); Sodium, Blood 139 mmol/L (136-145)
--- NOTE | 2018-08-27 04:27 | NUR ---
SHIFT ASSESSMENT PT TRANSFERRED FROM ICU TO PCU THIS SHIFT. NO ACUTE CHANGES NOTED WHILE IN PCU. PT OCC YELLING OUT FOR STAFF AND AT THE TELEVISION, OTHERWISE CALM, USES CALL LIGHT APPROPRIATELY, OCC UNCOOPERATIVE, LABILE, IRRITABLE, A&O X4, TALKS AND ANSWERS QUESTIONS APPROPRIATELY, SPONT OPENS EYES. SENSATION INACT BUE'S. HX OF CHRONIC NEUROPATHY BLE'S. N/T BLE'S. NORMAL STRENGTH BUE'S. WEAKNESS BLE'S. PT C/O WEAKNESS BLE'S FROM BASELINE. BEDBOUND. UTILIZED BED ROTATION TO REPOSITION PT. PT REFUSED TO UTILIZE PILLOWS FOR REPOSITIONING. PT C/O PAIN/DISCOMFORT IN BILAT HIPS, BLE'S, AND COCCYX T/O SHIFT. CONT TO ASSESS FOR PAIN/DISCOMFORT AND MEDICATED WITH PAIN MEDS PER PHYSICIAN'S ORDER AND UTILIZED NONPHARM METHODS. PT STATES "MY PAIN IS MORE TOLERABLE WITH TYLENOL AND DILAUDID". PT SLEPT ON AND OFF T/O SHIFT. PT CURRENTLY AWAKE AND WATCHING TELEVISION IN BED. LUNGS CLEAR T/O, DIMINISHED MIDDLE AND LOWER LOBES. PT ON 6L NC. OXY SAT >90%. RR 16 TO 18. DENIES SOB AT REST. DYSPNEA ON EXERTION. PT REFUSED BIPAP T/O SHIFT. BIPAP SETTINGS 22/10 WITH 10L OXYGEN. OCC NONPRODUCTIVE COUGH. AFEBRILE. NSR WITH FIRST DEGREE AVHB PER EVIDENCE CUSTODIAN. HR 80'S TO 90'S. BP STABLE - SEE VS FS. STRONG RADIAL PULSES. FAINT TIBIAL AND PEDAL PULSES. WARM, PINK, DRY SKIN. NON-PITTING EDEMA BLE'S. ACTIVE BT X4 QUADRANTS. ABD MOD DIST, SOFT, NONTENDER. NO N/V. PT TOLERATING PO FLUIDS AND DIET DIET. CHRONIC F/C IN PLACE: CLEAR, YELLOW URINE. PIV X2 -SL. AM LABS COMPLETED. WAITING FOR LAB RESULTS AT THIS TIME. WILL CONT TO MONITOR PT AND WILL PROVIDE BEDSIDE REPORT TO ONCOMING NURSE THIS AM.
--- NOTE | 2018-08-27 05:20 | NUR ---
DR. WEAVER CALLED DR. VALENTINO AT 0500. DR. VAZQUEZ CALLED PCU BACK AT THIS TIME. INFORMED DR. VALENTINO OF AM LABS. DR. WEAVER ORDERED AN ADDITIONAL KCL [address] SANCHES AWARE OF SCHEDULED KCL 20 MEQ. WAITING FOR VERIFICATION OF MEDICATION FROM PHARMACY AT THIS TIME.
--- NOTE | 2018-08-27 18:10 | NUR ---
END OF SHIFT; PT REFUSES TURNS DURING DAY. PERSUADED TO ALLOW THIS RN TO TURN HIM 3 TIMES. PT COMPLAINS OF PAIN TO LEFT AND RIGHT SIDES. ALONG WITH FEET AND ARM PAIN. PT REFUSES DRESSING CHANGE TO ANKLE. NARCOTIC PAIN MEDS WERE DC'D TODAY BY HOSPITALIST AND PT VERY UPSET. PT IS PROVIDED WITH MOBIC AND TYLENOL. VISITED WITH PT TODAY AND SAYS HE IS NOT GOING TO BE SEEING THIS PATIENT ANYMORE UNLESS HE BECOMES WORSE AND NEEDS INTERVENTION. WILL CONTINUE TO MONITOR THIS PATIENT UNTIL REPORT AND HAND OFF TO NOC SHIFT RN.
[2018-08-28 04:30] LABS: Albumin, Blood 2.6 g/dL (3.4-5.0); Anion Gap 2 mmol/L (6-16); Blood Urea Nitrogen 16 mg/dL (8-24); Bun/Creatinine Ratio 25.4 (12.0-20.0); CO2, Blood 38 mmol/L (21-32); Calcium, Blood 8.4 mg/dL (8.5-10.1); Chloride, Blood 97 mmol/L (98-108); Creatinine, Blood 0.63 mg/dL (0.60-1.20); Glomerular Filtration Rate >60 (60-); Glucose, Blood 143 mg/dL (70-99); Phosphorus, Blood 2.4 mg/dL (2.5-4.9); Potassium, Blood 3.8 mmol/L (3.5-5.5); Sodium, Blood 137 mmol/L (136-145)
--- NOTE | 2018-08-28 04:53 | NUR ---
END OF SHIFT SUMMARY NO ACUTE CHANGES AT THIS TIME THIS SHIFT. PT HAS BEEN CONTINUOUSLY TURNED VIA BARIATRIC BED. HAS BEEN MANUALLY TURNED WITH SACRAL ASSESMENTS WELL. SACRAL/GROIN AREA NOTED TO SHOW MULTIPLE POINTS OF BREAKDOWN. COPIUOUS AMOUNTS OF BARRIER CREAM HAS BEEN APPLIED TO THIS AREA ALONG WITH CLEANING. PT STATES THAT THIS HAS HELPED WITH THE ITCHING/DISCOMFORT HE HAS BEEN EXPERIENCING. PT REFUSED HIS ABG THIS AM PER RT. R LEG WOUND CLEANED/REDRESSED THIS SHIFT. PT HAS BEEN COOPERATIVE FOR MAJORITY OF THIS SHIFT. CALL LIGHT WITHIN REACH. WILL CONTINUE TO MONITOR PT UNTIL SHIFT CHANGE.
--- NOTE | 2018-08-28 11:44 | NUR ---
ASSUMED CARE AND COMFORT OF THIS PATIENT FROM BRENDAN DENNY THIS AM. PT APPEARS AGITATED AND COMPLAINS ABOUT NOT RECEIVING NARCOTIC PAIN MEDS SINCE YESTERDAY. HE IS RESTING IN BARIATRIC BED. HOB AT 45 DEGREES. O2 VIA NASAL CANNULA AT 6 LITERS. PT ABLE TO MAKE NEEDS KNOWN AND USES CALL LIGHT APPROPRIATELY. PT ABLE TO FEED HIMSELF. HE DOES NOT ALLOW THIS RN TO DO SKIN CHECK AT THIS TIMIE. STATES HE WILL ALLOW AFTER LUNCH.
--- NOTE | 2018-08-28 15:14 | NUR ---
PT CONTINUES TO REFUSE TO BE TURNED ON EITHER HIS RIGHT OR LEFT SIDE. DID ALLOW THIS RN AT ONE TIME TO TURN TO HIS LEFT AND THEN ASKED TO BE FLAT ON HIS BACK WITHIN 5 MINUTES. PT IS EDUCATED ON NEED FOR GETTING OFF HIS BACKSIDE. RISKS ARE IDENTIFIED AND EXPLAINED TO PATTIENT WHO VERBALIZED UNDERSTANDING AND STILL REFUSED SKIN BREAKDOWN IS NOTED AND BLEEDING TO LEFT THIGH NOTED. PINK CREAM IS APPLIED TO ALL AREAS OF BREAKDOWN. MEPELEX ATTEMPTED AND DID NOT ADHERE TO BREAKDOWN AREA. CHARGE COREY NOTIFIED, THIS RN WILL CONTINUE TO OFFER TO TURN PATIENT AND EDUCATE.
--- NOTE | 2018-08-29 02:08 | NUR ---
DESPITE CONTINUED EDUCATON REGARDING THE NEED FOR TURNING/REPOSITIONING DUE TO PT'S BEDBOUND STATUS AND CURRENT STATES OF HIS SACRAL AREA WITH THE WOUNDS. PT CONTINUES TO DENY SIDE TO SIDE REPOSITIONING. THE BARIATRIC BED HAS BEEN CONTINUOUSLY REPOSITIONING BUT THIS REPOSITIONING IS NOT TO THE EXTENT THIS PT REQUIRES FOR OPTIMAL HEALING. PT HAS BEEN CONTINUALLY EDUCATED ABOUT THIS BY MULTIPLE STAFF MEMBERS THROUGHOUT HIS HOSPITAL STAY PER REPORT.
[2018-08-29 05:35] LABS: Albumin, Blood 2.8 g/dL (3.4-5.0); Anion Gap 5 mmol/L (6-16); Blood Urea Nitrogen 11 mg/dL (8-24); Bun/Creatinine Ratio 19.7 (12.0-20.0); CO2, Blood 40 mmol/L (21-32); Calcium, Blood 8.5 mg/dL (8.5-10.1); Chloride, Blood 97 mmol/L (98-108); Creatinine, Blood 0.56 mg/dL (0.60-1.20); Glomerular Filtration Rate >60 (60-); Glucose, Blood 118 mg/dL (70-99); Potassium, Blood 3.8 mmol/L (3.5-5.5); Sodium, Blood 142 mmol/L (136-145)
--- NOTE | 2018-08-29 07:15 | NUR ---
RECEIVED REPORT FROM EDUIN CARDONA, AND ASSUMED CARE OF PT.
--- NOTE | 2018-08-29 07:27 | NUR ---
END OF SHIFT SUMMARY PT ALERT AND ORIENTED AT BEGINNING OF SHIFT. WITH SLEEP, PT PRESENTS DELIRIUS AT TIMES. DIFFICUT TO ARROUSE. TOWARDS END OF SHIFT, PT'S CONVERSATION AND THOUGHT PROCESS BECOME MORE CONCRETE AND BACK TO BASELINE. PT CONTINUES TO REFUSES CPAP DESPITE EDUCATION AND PROMPTING BY THIS RN. PT CONTINUES TO REFUSE TURNING/REPOSITIONING THIS SHIFT DESPITE CONSTANT EDUCATION AND PROMPTING BY THIS RN. BARIATRIC BED SET TO SLOWLY REPOSITION BUT PT DOES NOT ALLOW FULL SIDE INFLATION. PT'S O2 SATS WERE OF CONCERN THIS SHIFT. PT CONTINUED TO NOT WEAR CPAP, THIS SHIFT PT WAS ABLE TO FALL ASLEEP (SOMETHING THE PT STATES HE HAD NOT DONE IN A FEW NIGHTS), WITH THIS, PT HAS APNEIC PERIODS. PT WOULD DESAT TO LOW 80S, PT WOKEN UP BY STAFF REPEATEDLY THROUGHOUT NIGHT IN ORDER FOR HIM TO WAKE UP AND BREATHE. PT IS NOW SATTING AT 92%, STILL ON 6L. HUMIDIFER ADDED TO NC DUE TO CHRONIC NOSEBLEEDS. CASSIE LIGHT HAS BEEN WITHIN REACH THIS SHIFT. REPORT GIVEN TO ONCOMING RN. VSS T/O SHIFT.
--- NOTE | 2018-08-29 09:36 | NUR ---
NURSING SUMMARY ALERT AND ORIENTED, REPETITIVE SPEECH AT TIMES, REFUSES TO BE TURNED AND MAKES REMARKS BLAMING STAFF FOR NOT KNOWING HE DIDN'T WANT A STOOL SOFTENER AND FOR NOT KNOWING HE NEEDED THE KDUR TABLET BROKEN IN HALF. PT ATTEMPTS TO HAVE STAFF DO TASKS THAT HE IS CAPABLE OF DOING HIMSELF. ECOURAGED PT TO BREAK HIS OWN KDUR IN HALF AND BRUSH HIS OWN TEETH. WHILE ALONE IN HIS ROOM, PT OFTEN YELLS OUT "YEAH BABY," "COME ON BABY," AND "THAT'S RIGHT BABY." ST ON TELEMETRY WTIH PVC'S, HR 113. LUNGS DIMINISHED THROUGHOUT, 6L O2 NC, REFUSES CPAP/BIPAP, SATS 90%, USES HOME O2. CHRONIC SORIA DRAINING CLEAR YELLOW URINE. SORIA WAS CHANGED OUT WHEN PT ARRIVED IN THE ED. TOLERATING A CARDIAC DIET. MULTIPLE SKIN WOUNDS THROUGHOUTOUT BODY IN VARIOUS STAGES OF BREAKDOWN AND HEALING. PT REFUSING TO BE REPOSITIONED. WILL APPLY SKIN CARE CREAMS WHEN GEARMAN'S ARE READY TO GIVE PT A BED BATH. C/O GENERALIZED PAIN, ASKED FOR TYLENOL, INFORMED THAT IT WAS TOO EARLY AND HE COULD ONLY HAVE EVERY 6 HOURS NEEDED. MEDICATED WITH MOBIC WITH ROUTINE MEDICATIONS. RIGHT FOREARM IV SITE.
--- NOTE | 2018-08-29 09:55 | NUR ---
DR. MICHELLE AT BEDSIDE FOR EVALUATION.
--- NOTE | 2018-08-29 16:41 | NUR ---
TALKED WITH JACKIE MILLAN. HOME HEALTH IVST-FK-QDCT CANNOT BE DONE DUE TO [facility] STATING THEY WILL NO LONGER WORK WITH THE PATIENT BECAUSE HE IS CALLING THEM IN THE MIDDLE OF THE NIGHT DEMANDING THEM TO COME GIVE HIM A BED BATH. THEY STATED HE GETS MAD AT THEM WHEN THEY WILL NO DO THAT. JACKIE TALKED WITH THE PATIENT EARLIER TODAY ABOUT THIS. PT WAS MAD AND STATED HE DIDIN'T KNOW WHAT HE WAS GOING TO DO YET. JUST HAD A CONVERSATION WITH THE PT ABOUT HIS [facility] RIDE HOME AND [facility] REFUSING TO COME OUT ANYMORE. PT DEMANDING ME TO TELL CHRISTY BERNAL THAT HE NEEDS A WHEELCHAIR RIDE HOME BECAUSE IT COSTS LESS THAN A GURNEY. HE IS ALSO DEMANDING THAT I WAIT UNTIL 1900 TO CALL THEM BECAUSE IF I DON'T, [facility] WILL ACTUALLY SHOW UP WITH A WHEELCHAIR WHEN HE NEEDS A GURNEY. HE STATED [facility] DOES NOT HAVE WHEELCHAIR RIDES AFTER 6 P.M. AND IF YOU ASK FOR A WHEELCHAIR RIDE, THEY WILL SHOW UP WITH A GURNEY BUT ONLY CHARGE WHEELCHAIR PRICES. HE STATED IF THEY DO SHOW UP WITH A WHEELCHAIR, HE WILL REFUSE THE RIDE. I INSTRUCTED PT THAT I WILL NEED TO TELL [facility] THE TRUTH ABOUT WHAT HIS TRANSPORT NEEDS ARE. PT MAD AND SAYING WE WILL BE RESPONSIBLE FOR THE ADDITIONAL COST THEN. PT ASKING TO CALL CHRISTY BERNAL HIMSELF AT 1800. I AGREED TO THIS AND PT AGREED THAT HE WILL HAVE ME AT THE BEDSIDE DURING THE CALL.
--- NOTE | 2018-08-29 18:45 | NUR ---
PT STATES HE DOES NOT FEEL SAFE GOING HOME WITHOUT HOME HEALTH CARE BEING SET-UP. REMINDED OF [employer] REFUSING TO CONTINUE TO COME OUT TO HIS HOME TO PROVIDE CARE AND NEED TO FIND ANOTHER HOME HEALTH CENTER. SHERIF HELLER RN AWARE. WILL WORK WITH [employer] TOMORROW TO PURSUE DISCHARGE.
--- NOTE | 2018-08-30 04:18 | NUR ---
BLIND SLAT STAPLING MACHINE OPERATOR SUMMARY PT TRANSFERED FROM PCU AT START OF SHIFT. PT AAOX4. REMAINS ON 6L O2 VIA NC. PT REFUSES CPAP AND CONTINUOUS OXYMETRY. PT SIGNED REFUSAL FORM FOR RT. TREATED FOR CHRONIC PAIN X2 WITH TYLENOL. PT HAS WOUNDS ON SACRAL AREA BUT REFUSES REPOSITIONING. SORIA CATH PATENT AND DRAINING. PLAN IS PROBABLE DC WITH HOME HEALTH LATER TODAY. VSS, WILL CONTINUE TO MONITOR.
--- NOTE | 2018-08-30 12:19 | NUR ---
LEG WOUND CLEANED AND NEW DRESSING APPLIED. BUTTOCK CLEANED OF CALAZINE AND COMBINATION CALAZINE AND ALOE CREAM APPLIED. BED BATH DONE. AWARE HAS F/U APPT ON WEDNESDAY. CEILLING LIFT USED TO GET PATIENT TO W/C. C/O ABOUT WEDNESDAY APPT. ADVISED TO CALL HIS PCP TO SEE ABOUT CHANGING IF NEEDED ALSO TO TALK TO HIM ABOUT HIS WOUNDS. STS WILL NOT GO TO OUT PATIENT WOUND CARE BECAUSE " COST OF RIDE TO CLINIC." C/O "SYSTEM" THAT WANTS HIM "TO SELL EVERYTHING AND GET ON MEDICAID." ON OUR OXYGEN TO MEDICAB THEN HOME.
--- NOTE | 2018-08-30 14:34 | NUR ---
Belonging mailed to patients P.O. box, include Wal[employer] with cards and 100.00 dollARS cell phone case box phone pet stylist kathia celeste remote control. Patient notified via phone.
== END 2018-08-30 12:13 | disposition home or self-care (01) | DRG 189 ==
LOC: ER 12:31 → ICUW 16:00 → PCU 08-26 20:06 → MEDS 08-29 19:26 → ENPENDDIS 08-30 11:07 → MEDS 08-30 12:13
PROVIDERS: Emergency Medicine; Internal Medicine; Internal Medicine Critical Care Medicine; ADMIT Internal Medicine
DX: J96.21 Acute and chronic respiratory failure with hypoxia (principal); G92 Toxic encephalopathy; J44.1 Chronic obstructive pulmonary disease with (acute) exacerbation; I50.32 Chronic diastolic (congestive) heart failure; Z68.45 Body mass index [BMI] 70 or greater, adult; Z99.81 Dependence on supplemental oxygen; Z91.19 Patient's noncompliance with other medical treatment and regimen; E66.01 Morbid (severe) obesity due to excess calories; G47.33 Obstructive sleep apnea (adult) (pediatric); F32.9 Major depressive disorder, single episode, unspecified; R04.0 Epistaxis; E87.6 Hypokalemia; E83.39 Other disorders of phosphorus metabolism; I83.009 Varicose veins of unspecified lower extremity with ulcer of unspecified site; Z86.711 Personal history of pulmonary embolism; Z79.01 Long term (current) use of anticoagulants; Z96.0 Presence of urogenital implants
CPT/HCPCS: 36415; 51703; 71045; 80048; 80053; 80069; 81001; 84439; 84481; 85025; 85027; 87086; 93005; 93010; 94640; 94644; 94660; 94760; 94762; 99285-25; A9270; C9113; J1650; J7030; J7060